=== PATIENT | female | born 1955 | race Caucasian/White ===

== ENCOUNTER → 2022-07-28 14:09 | Outpatient (CLI) | payer MEDICARE, MEDICAID, SELFPAY ==
[2022-07-28 15:16] LABS: Hematocrit 38.7 % (36-46); Hemoglobin 12.6 g/dL (12.0-16.0); Mean Corpuscular HGB Conc 32.6 % (30-36); Mean Corpuscular Hemoglobin 26.4 PG (26-34); Mean Corpuscular Volume 81.2 fL (80-100); Platelet Count 287 X10^3/uL (150-400); Red Blood Cell Count 4.77 X10^6/uL (4.0-5.2); Red Cell Distribution Width 14.5 % (11.6-14.8); White Blood Cell Count 5.9 X10^3/uL (4.5-11.0)
[2022-07-28 15:36] LABS: Alanine Aminotransferase 34 IU/L (<35); Albumin 4.4 g/dL (3.5-5.0); Albumin Globulin Ratio 1.2 (1.0-2.8); Alkaline Phosphatase 138 U/L (38-126); Aspartate Aminotransferase 92 IU/L (14-36); BUN Creatinine Ratio 26.4 (6-22); Bilirubin Total 0.6 mg/dL (0.2-1.3); Blood Urea Nitrogen 19 mg/dL (7-17); Calcium 9.8 mg/dL (8.4-10.2); Carbon Dioxide 25 mmol/L (22-32); Chloride 104 mmol/L (98-107); Cholesterol 177 mg/dL (140-199); Estimated Glomerular Filt Rate > 60 mL/min (>60); Globulin 3.8 g/dL (1.7-4.1); Glucose 109 mg/dL (80-110); HDL Cholesterol 45 mg/dL (40-60); HEMOLYSIS 29 (0-50); LDL Cholesterol Calculated 83 mg/dL (<100); Potassium 4.1 mmol/L (3.4-5.1); Sodium 139 mmol/L (137-145); Total Protein 8.2 g/dL (6.3-8.2); Triglycerides 246 mg/dL (35-150)
[2022-07-28 16:05] LABS: TSH w/ Reflex to FT4 1.87 uIU/mL (0.47-4.68)
== END ==
PROVIDERS: PCP Registered Nurse Diabetes Educator; Referring Provider Registered Nurse Diabetes Educator; Visit Provider Registered Nurse Diabetes Educator
DX: I25.10 Atherosclerotic heart disease of native coronary artery without angina pectoris (principal); R73.03 Prediabetes; I50.20 Unspecified systolic (congestive) heart failure
CPT/HCPCS: 36415; 80053; 80061; 83036; 84443; 85027

== ENCOUNTER → 2023-01-01 08:59 | Outpatient (CLI) | payer MEDICARE, MEDICAID, SELFPAY ==
[2023-01-01 10:48] LABS: Hemoglobin A1C% w Est Avg Glu 6.3 % (4.0-6.0)
[2023-01-01 10:57] LABS: Add Manual Diff / Slide Review NO; Basophils Absolute Auto 100 /uL (0-100); Basophils Percent Auto 1.2 % (0-2); Eosinophils Absolute Auto 300 /uL (0-450); Hemoglobin 12.3 g/dL (12.0-16.0); Lymphocytes Absolute Auto 2100 /uL (1100-4500); Lymphocytes Percent Auto 36.6 % (25-40); Mean Corpuscular HGB Conc 32.3 % (30-36); Mean Corpuscular Hemoglobin 25.1 PG (26-34); Mean Corpuscular Volume 77.8 fL (80-100); Monocytes Absolute Auto 400 /uL (0-900); Monocytes Percent Auto 6.3 % (3-14); Neutrophils Absolute Auto 2900 /uL (1500-7000); Neutrophils Percent Auto 49.9 % (50-75); Platelet Count 198 X10^3/uL (150-400); Red Blood Cell Count 4.88 X10^6/uL (4.0-5.2); White Blood Cell Count 5.8 X10^3/uL (4.5-11.0)
[2023-01-01 11:00] LABS: Alanine Aminotransferase 23 IU/L (<35); Albumin 4.1 g/dL (3.5-5.0); Albumin Globulin Ratio 1.2 (1.0-2.8); Alkaline Phosphatase 149 U/L (38-126); Aspartate Aminotransferase 39 IU/L (14-36); Bilirubin Total 0.4 mg/dL (0.2-1.3); Bilirubin Unconjugated 0.2 mg/dL (0.0-1.1); Globulin 3.5 g/dL (1.7-4.1); HEMOLYSIS < 15 (0-50); Total Protein 7.6 g/dL (6.3-8.2)
[2023-01-01 11:01] LABS: Alanine Aminotransferase 24 IU/L (<35); Albumin 4.1 g/dL (3.5-5.0); Albumin Globulin Ratio 1.2 (1.0-2.8); Alkaline Phosphatase 146 U/L (38-126); Aspartate Aminotransferase 38 IU/L (14-36); BUN Creatinine Ratio 18.7 (6-22); Bilirubin Total 0.4 mg/dL (0.2-1.3); Blood Urea Nitrogen 14 mg/dL (7-17); Calcium 8.8 mg/dL (8.4-10.2); Carbon Dioxide 28 mmol/L (22-32); Chloride 105 mmol/L (98-107); Estimated Glomerular Filt Rate > 60 mL/min (>60); Globulin 3.4 g/dL (1.7-4.1); Glucose 129 mg/dL (80-110); HEMOLYSIS < 15 (0-50); Potassium 3.8 mmol/L (3.4-5.1); Sodium 141 mmol/L (137-145); Total Protein 7.5 g/dL (6.3-8.2)
[2023-01-01 11:44] LABS: TSH w/ Reflex to FT4 3.65 uIU/mL (0.47-4.68)
== END ==
PROVIDERS: PCP Registered Nurse Diabetes Educator; Referring Provider Internal Medicine Cardiovascular Disease; Visit Provider Internal Medicine Cardiovascular Disease
DX: Z01.818 Encounter for other preprocedural examination (principal); R73.9 Hyperglycemia, unspecified; R74.01 Elevation of levels of liver transaminase levels; Z13.29 Encounter for screening for other suspected endocrine disorder
CPT/HCPCS: 36415; 80053; 80076; 83036; 84443; 85025

== ENCOUNTER → 2023-01-11 11:24 | Outpatient (CLI) | payer MEDICARE, MEDICAID, SELFPAY ==
--- NOTE | 2023-01-11 11:26 | DI.US.S_ITS ---
PROCEDURE: US ABDOMEN LIMITED INDICATIONS: elevated liver enzymes TECHNIQUE: Real-time focused scanning was performed of the abdomen, with image documentation. COMPARISON: None. FINDINGS: Liver measures 20 cm. Echogenicity is increased. Borderline gallbladder wall thickening at 3 mm. Negative sonographic Hoffman sign. No stones identified. CBD measures 5 mm. Pancreas appears echogenic. IMPRESSION: Echogenic appearance of the liver, with borderline hepatomegaly, most commonly seen with steatosis. Gallbladder wall thickening without sonographic Hoffman sign or stones, possibly reactive to liver disease. No pathologic biliary ductal dilation. Echogenic appearance of the pancreas could also be due to fatty infiltration, versus artifact, not well evaluated on ultrasound. Dictated by: Hong Forrest M.D. on 01/11/2023 at 11:59 Approved by: Hong Forrest M.D. on 01/11/2023 at 12:01
== END ==
PROVIDERS: PCP Registered Nurse Diabetes Educator; Referring Provider Registered Nurse Diabetes Educator; Visit Provider Registered Nurse Diabetes Educator
DX: R74.8 Abnormal levels of other serum enzymes (principal)
CPT/HCPCS: 76705

== ENCOUNTER → 2023-02-06 07:32 | Outpatient (CLI) | payer MEDICARE, MEDICAID, SELFPAY ==
[2023-02-06 08:40] LABS: Alanine Aminotransferase 31 IU/L (<35); Albumin 4.1 g/dL (3.5-5.0); Albumin Globulin Ratio 1.2 (1.0-2.8); Alkaline Phosphatase 183 U/L (38-126); Aspartate Aminotransferase 45 IU/L (14-36); Bilirubin Total 0.3 mg/dL (0.2-1.3); Bilirubin Unconjugated 0.1 mg/dL (0.0-1.1); Globulin 3.5 g/dL (1.7-4.1); HEMOLYSIS < 15 (0-50); Total Protein 7.6 g/dL (6.3-8.2)
[2023-02-06 08:52] LABS: HEMOLYSIS < 15 (0-50); Iron 52 ug/dL (37-170)
[2023-02-06 09:03] LABS: Percent Iron Saturation 17 % (15-50); Total Iron Binding Capacity 310 ug/dL (265-497); Transferrin 239 mg/dL (206-381)
[2023-02-06 09:16] LABS: Ferritin 48 ng/mL (11-264)
[2023-02-06 09:47] LABS: Hepatitis B Surface Antigen NEGATIVE s/c (NEGATIVE)
[2023-02-06 10:05] LABS: Hep C Virus Ab w/Reflex Quant NEGATIVE s/c (NEGATIVE)
== END ==
PROVIDERS: PCP Registered Nurse Diabetes Educator; Referring Provider Registered Nurse Diabetes Educator; Visit Provider Registered Nurse Diabetes Educator
DX: R74.8 Abnormal levels of other serum enzymes (principal)
CPT/HCPCS: 36415; 80076; 82728; 83540; 83550; 86803; 87340

== ENCOUNTER 2023-07-04 10:43 | Emergency (ER) | payer MEDICARE, MEDICAID, SELFPAY ==
[2023-07-04] VITALS (13 sets, daily range): BP systolic 132–198; BP diastolic 63–86; PULSE 44–73; RESP 17–24; TEMP 36.4; O2SAT 95–98
--- NOTE | 2023-07-04 10:51 | ED_ITS ---
HPI - Head Injury General Chief complaint: Syncope Stated complaint: Fell hurt head Time Seen by Provider: 07/04/23 10:50 Source: patient Mode of arrival: Ambulatory Limitations: no limitations History of Present Illness HPI Narrative: Patient presents with a headache and forehead injury. She was sitting on the ed ge of her bed this morning, she awoke on the floor, not understanding how she got there. She is assuming she passed out. She was seen at [facility] ER recently under similar circumstances. She is no visual changes, no bleeding from her ears, nose or mouth, no neck pain, no back pain. She denies chest pain or palpitations. She denies weakness or dizziness. She is no nausea. She is no confusion. She is no focal extremity weakness or numbness. She denies fever chills, no recent illness. She is a history of cardiac disease, she describes undergoing a thorough cardiac evaluation in 2019. None of those records are here. Related Data Home Medications Medication Instructions Recorded Confirmed latanoprost 0.005 % eye drops drp EYE-BOTH 07/10/22 02/07/23 diclofenac sodium 1 % topical gel g topical 01/01/23 02/07/23 Previous Rx's Medication Instructions Recorded torsemide 20 mg tablet 20 mg PO DAILY #90 tabs 08/06/22 atorvastatin 40 mg tablet 40 mg PO BEDTIME #90 tabs 10/12/22 metformin 500 mg tablet 500 mg PO BID #180 tabs 10/12/22 mirtazapine 45 mg tablet 45 mg PO BEDTIME #90 tabs 12/26/22 oxybutynin chloride 5 mg tablet 5 mg PO BID #180 tabs 12/26/22 fluoxetine 40 mg capsule 40 mg PO DAILY #90 caps 07/03/23 Allergies Allergy/AdvReac Type Severity Reaction Status Date / Time No Known Drug Allergies Allergy Verified 07/04/23 10:51 Review of Systems Constitutional Constitutional: Reports system reviewed and no additional complaints, except as documented Eyes Eyes: Denies blurry vision and Denies change in vision ENT Ears, Nose, Mouth, and Throat: Denies dysphagia, Denies vertigo, Denies dizziness, Denies sinus pain and Denies sore throat Cardiovascular Cardiovascular: Denies chest pain, Denies pedal edema, Denies irregular heart rhythm, Denies lightheadedness, Denies dyspnea on exertion and Denies slow heart rate Respiratory Respiratory: Denies chest congestion, Denies cough and Denies dyspnea on exertion Gastrointestinal Gastrointestinal: Denies abdominal pain, Denies constipation, Denies dysphagia and Denies nausea Genitourinary Genitourinary: Denies dysuria Musculoskeletal Musculoskeletal: Denies arthralgias, Denies back pain and Denies numbness Integumentary/Breasts Skin/Breast: Denies lesions and Denies rash Neurologic Neurologic: Denies behavioral changes, Denies confusion, Denies vertigo, Denies dizziness and Denies numbness Psychiatric Psychiatric: Denies anxiety, Denies behavioral changes and Denies confusion Hematologic/Lymphatic On Anticoagulants: No Allergic/Immunologic Allergic/Immunologic: Denies GI upset with certain foods and Denies urticaria Patient History Medical History Anxiety (~1999) Borderline glaucoma CAD (coronary artery disease) Carpal tunnel syndrome Cataracts, bilateral (~1999) Chronic left shoulder pain Depression (~1999) Fatty liver disease, nonalcoholic Osteoarthritis Prediabetes Skin tag (~1969) Systolic heart failure (~2019) Urinary incontinence, urge (~2011) Surgical History Anesthesia History of cataract removal with insertion of prosthetic lens (~2015) Family History Father Cancer Mother No problems noted. Brother Alcoholism Schizophrenia Mental health problem Family/Other Hypertension Paranoia Mental health problem Social History Smoking Status: Never smoker Smoking Status: Never smoker Exam Initial Vital Signs Initial Vital Signs: Vital Signs Temperature 97.5 F L 07/04/23 10:51 Pulse Rate 47 L 07/04/23 10:51 Respiratory Rate 17 07/04/23 10:51 Blood Pressure 188/83 H 07/04/23 10:51 Pulse Oximetry 98 07/04/23 10:51 Oxygen Delivery Method Room Air 07/04/23 10:51 Const General: cooperative, comfortable, well developed and well groomed HENMT Head: other (Forehead contusion. No palpable defects.) Ears: TM's normal bilaterally Face and sinus: normal facial exam Mouth: oral mucosae normal Throat: posterior oropharynx normal Eyes General: Yes appearance normal, both eyes and all related structures Conjunctivae: conjunctivae normal Sclera: sclerae normal Cornea: corneas normal Pupils: PERRL EOM: EOM intact bilaterally Neck Neck: normal visual inspection, full ROM, No tender and No JVD Thyroid: thyroid normal Chest Chest: No localized rib tenderness with anteroposterior compression Resp Effort & Inspection: normal respiratory effort Auscultation: clear to auscultation bilaterally Cardio Palpation: normal PMI Rate: regular rate Rhythm: regular rhythm Heart Sounds: S1 normal, S2 normal and murmur (2/6 mid systolic murmur.) Pulses: radial pulses present GI Inspection: no edema Palpation: No tender Percussion: normal to percussion Auscultation: normal bowel sounds Back/Spine/Pelvis Back: normal to inspection and No back tenderness Thoracic/Lumbar Spine: thoracic and lumbar spine normal to inspection Skin General: no rashes or lesions noted Neuro General: patient alert, patient awake, patient oriented x3 and no focal motor deficits Extrem General: normal to inspection, full ROM, no pedal edema and no calf tenderness Psych Appearance: grossly normal Course Course Course Narrative: Other than mild headache the patient has been asymptomatic since arrival. She is a normal sinus rhythm/sinus Jorge with normal blood pressures. Head CT, EKG and labs are benign. Murmur is noted on exam. I contacted her PCM, Thuy Gillis. She is scheduled to see SCHUYLER Rodriguez next week. We discussed initiating outpatient cardiac monitoring and/or echocardiogram. My impression that she had syncope leading to the fall, not concussion from a fall. The patient is discharged home on current medications and advised to return here if symptoms recur. Orders Ordered: ED Orders 07/04/23 10:59 CT head/brain wo con Stat 07/04/23 11:10 EKG-12 Lead Stat 07/04/23 11:12 Urine Culture Stat Urine Drug Screen, Rapid Stat Urine Microscopic Stat 07/04/23 11:18 CBC Auto Diff [Complete Blood Count AUTO DIFF] Stat CMP [Comprehensive Metabolic Panel] Stat ETOH [Ethanol (ETOH)] Stat Troponin & CK Cardiac Panel Stat Vital Signs Vital signs: Vital Signs - 8 hr 07/04/23 11:12 07/04/23 11:14 07/04/23 11:14 Pulse Rate 48 L 47 L Respiratory Rate 22 Blood Pressure 186/72 H Pulse Oximetry 96 96 07/04/23 11:21 07/04/23 11:21 07/04/23 11:30 Pulse Rate 46 L 44 L Respiratory Rate 20 19 Blood Pressure 175/79 H Pulse Oximetry 96 97 07/04/23 11:31 07/04/23 11:31 07/04/23 11:43 Pulse Rate 45 L 46 L Respiratory Rate 22 22 Blood Pressure 144/63 H Pulse Oximetry 97 95 07/04/23 11:43 07/04/23 12:00 07/04/23 12:01 Pulse Rate 71 73 Respiratory Rate 18 17 Blood Pressure 179/84 H Pulse Oximetry 96 96 07/04/23 12:01 07/04/23 12:30 07/04/23 12:31 Pulse Rate 68 66 Respiratory Rate 19 24 Blood Pressure 139/73 Pulse Oximetry 95 97 07/04/23 12:31 07/04/23 13:00 07/04/23 13:01 Pulse Rate 72 73 Respiratory Rate 19 20 Blood Pressure 132/75 Pulse Oximetry 97 96 07/04/23 13:01 Pulse Rate Respiratory Rate Blood Pressure 198/86 H Pulse Oximetry MDM - Head Injury Differential Diagnosis Differential diagnosis: Likely closed head injury, subdural hematoma, concussion with loss of consciousness and other (syncope) Medical Records Attestation: I reviewed the patient's medical records. Lab Data Attestation: I reviewed the patient's lab results. 07/04/23 11:18 07/04/23 11:18 Labs: Lab Results 07/04/23 07/04/23 07/04/23 Range/Units 11:12 11:12 11:18 WBC 7.5 (4.5-11.0) X10^3/uL RBC 4.92 (4.0-5.2) X10^6/uL Hgb 12.8 (12.0-16.0) g/dL Hct 39.6 (36-46) % MCV 80.5 (80-100) fL MCH 26.0 (26-34) PG MCHC 32.3 (30-36) % RDW 15.3 H (11.6-14.8) % Plt Count 232 (150-400) X10^3/uL Neut % (Auto) 56.5 (50-75) % Lymph % (Auto) 34.5 (25-40) % [place] % (Auto) 5.2 (3-14) % Eos % (Auto) 2.9 (2-4) % Baso % (Auto) 0.9 (0-2) % Neut # (Auto) 4300 (6887-5676) /uL Lymph # (Auto) 2600 (5374-3909) /uL [place] # (Auto) 400 (0-900) /uL Eos # (Auto) 200 (0-450) /uL Baso # (Auto) 100 (0-100) /uL Sodium (137-145) mmol/L Potassium (3.4-5.1) mmol/L Chloride (98-107) mmol/L Carbon Dioxide (22-32) mmol/L BUN (7-17) mg/dL Creatinine (0.52-1.04) mg/dL Estimated GFR (>60) mL/min BUN/Creatinine Ratio (6-22) Glucose (80-110) mg/dL Calcium (8.4-10.2) mg/dL Total Bilirubin (0.2-1.3) mg/dL AST (14-36) IU/L ALT (<35) IU/L Alkaline Phosphatase (38-126) U/L Total Creatine Kinase (30-135) U/L Troponin I (0.01-0.034) ng/mL Total Protein (6.3-8.2) g/dL Albumin (3.5-5.0) g/dL Globulin (1.7-4.1) g/dL Albumin/Globulin Ratio (1.0-2.8) Urine RBC 1-5/hpf (0-5/HPF) Urine WBC 1-5/hpf (0-5/HPF) Ur Squamous Epith Cells 0-1 /hpf (0-5/HPF) Urine Bacteria Few (2-10) H (None) Ur Culture Indicated? Specimen cultured U Opiates 300ng/mL cut Negative (Negative) Ur Oxycodone Screen Negative (Negative) Urine Methadone Screen Negative (Negative) Ur Barbiturates Screen Negative (Negative) U Tricyclic Antidepress Negative (Negative) Ur Phencyclidine Scrn Negative (Negative) Ur Amphetamines Screen Negative (Negative) U Methamphetamines Scrn Negative (Negative) Ur MDMA Scrn (Ecstasy) Negative (Negative) U Benzodiazepines Scrn Negative (Negative) Urine Cocaine Screen Negative (Negative) U Marijuana (THC) Screen Positive H (Negative) Ethyl Alcohol ( - 10) mg/dL 07/04/23 Range/Units 11:18 WBC (4.5-11.0) X10^3/uL RBC (4.0-5.2) X10^6/uL Hgb (12.0-16.0) g/dL Hct (36-46) % MCV (80-100) fL MCH (26-34) PG MCHC (30-36) % RDW (11.6-14.8) % Plt Count (150-400) X10^3/uL Neut % (Auto) (50-75) % Lymph % (Auto) (25-40) % [place] % (Auto) (3-14) % Eos % (Auto) (2-4) % Baso % (Auto) (0-2) % Neut # (Auto) (1695-1215) /uL Lymph # (Auto) (4937-2150) /uL [place] # (Auto) (0-900) /uL Eos # (Auto) (0-450) /uL Baso # (Auto) (0-100) /uL Sodium 140 (137-145) mmol/L Potassium 4.8 (3.4-5.1) mmol/L Chloride 109 H (98-107) mmol/L Carbon Dioxide 20 L (22-32) mmol/L BUN 15 (7-17) mg/dL Creatinine 0.78 (0.52-1.04) mg/dL Estimated GFR > 60 (>60) mL/min BUN/Creatinine Ratio 19.2 (6-22) Glucose 142 H (80-110) mg/dL Calcium 9.4 (8.4-10.2) mg/dL Total Bilirubin 0.4 (0.2-1.3) mg/dL AST 37 H (14-36) IU/L ALT 26 (<35) IU/L Alkaline Phosphatase 129 H (38-126) U/L Total Creatine Kinase 72 (30-135) U/L Troponin I < 0.012 (0.01-0.034) ng/mL Total Protein 7.6 (6.3-8.2) g/dL Albumin 4.3 (3.5-5.0) g/dL Globulin 3.3 (1.7-4.1) g/dL Albumin/Globulin Ratio 1.3 (1.0-2.8) Urine RBC (0-5/HPF) Urine WBC (0-5/HPF) Ur Squamous Epith Cells (0-5/HPF) Urine Bacteria (None) Ur Culture Indicated? U Opiates 300ng/mL cut (Negative) Ur Oxycodone Screen (Negative) Urine Methadone Screen (Negative) Ur Barbiturates Screen (Negative) U Tricyclic Antidepress (Negative) Ur Phencyclidine Scrn (Negative) Ur Amphetamines Screen (Negative) U Methamphetamines Scrn (Negative) Ur MDMA Scrn (Ecstasy) (Negative) U Benzodiazepines Scrn (Negative) Urine Cocaine Screen (Negative) U Marijuana (THC) Screen (Negative) Ethyl Alcohol < 10 ( - 10) mg/dL Urine Dip Bedside Urine Glucose Negative Bedside Urine Bilirubin - Negative Bedside Urine Ketone - Negative Urine Specific [place] 1.030 Bedside Urine Occult Blood - Negative Bedside Urine pH 9.0 Bedside Urine Protein +++ 300 Bedside Urine Urobilinogen 3+ 8mg Bedside Urine Nitrite - Negative Bedside Urine Leukocytes - Negative Esterase Imaging Data CT scan - head: Radiologist's Impression: No acute findings ECG Data Attestation: I personally reviewed and interpreted this ECG as follows: (Sinus bradycardia rate 49 beats per minute. RBBB. No ectopy. No acute ST T wave changes.) Discharge Plan Departure Patient Disposition: Home Clinical Impression: Cardiac murmur Syncope Qualifiers: Syncope type: unspecified Qualified Code(s): R55 - Syncope and collapse Instructions: DI for Syncope in Adults (Fainting) Activity Restrictions/Additional Instructions: I have contacted SCHUYLER Gillis. She is aware that you required ER care. We discussed possibly initial cardiac evaluation prior to your appointment with her next week. If symptoms recur you should return here immediately, including calling [phone] if necessary. Prescriptions: No Action atorvastatin 40 mg tablet 40 mg PO BEDTIME Qty: 90 3RF metformin 500 mg tablet 500 mg PO BID Qty: 180 3RF oxybutynin chloride 5 mg tablet 5 mg PO BID Qty: 180 1RF mirtazapine 45 mg tablet 45 mg PO BEDTIME Qty: 90 1RF fluoxetine 40 mg capsule 40 mg PO DAILY Qty: 90 1RF latanoprost 0.005 % drops EYE-BOTH torsemide 20 mg tablet 20 mg PO DAILY Qty: 90 3RF diclofenac sodium 1 % gel topical Referrals: Nicolás Gillis ARNP [Primary Care Provider] - Stand Alone Forms: Patient Portal/API
--- NOTE | 2023-07-04 10:59 | DI.CT.S_ITS ---
PROCEDURE: CT HEAD/BRAIN WO CON INDICATIONS: Fall with head injury TECHNIQUE: Noncontrast 4.5 mm thick angled axial sections acquired from the foramen magnum to the vertex, with coronal and sagittal reformats. For radiation dose reduction, the following was used: automated exposure control, adjustment of mA and/or kV according to patient size. COMPARISON: None. FINDINGS: Image quality: This examination is limited by involuntary motion artifact. Mild streak artifact can be seen through the skull base. CSF spaces: Basal cisterns are patent. No extra-axial fluid collections. The ventricles are symmetric in size and shape. Brain: No intracranial bleeds or masses. There is cerebral volume loss for age, with resultant ventricular and sulcal prominence. There are periventricular and deep white matter chronic small vessel ischemic changes. There is intracranial internal carotid artery atherosclerosis. Skull and face: Calvarium and visualized facial bones appear intact, without suspicious lesions. Incidental note is made of hyperostosis frontalis. This is not considered to be pathologic in a woman of this age. Sinuses: Visualized sinuses and mastoids are clear. IMPRESSION: No acute intracranial hemorrhage is seen. No acute intracranial process is seen. Dictated by: Kevin Lin M.D. on 07/04/2023 at 10:49 Approved by: Kevin Lin M.D. on 07/04/2023 at 10:50
[2023-07-04 11:24] LABS: UR Morphine/Opiate cutoff 300 Negative (Negative); Ur Creatinine Normal (Normal); Ur Specific Gravity Normal (Normal); Urine Amphetamines Negative (Negative); Urine Barbiturates Negative (Negative); Urine Benzodiazepines Negative (Negative); Urine Cocaine Negative (Negative); Urine MDMA Negative (Negative); Urine Methadone Negative (Negative); Urine Methamphetamines Negative (Negative); Urine Oxycodone Negative (Negative); Urine Phencyclidine Negative (Negative); Urine Tetrahydrocannabinol Positive (Negative); Urine Tricyclic Antidepressant Negative (Negative); Urine pH Normal (Normal)
[2023-07-04 11:26] LABS: Add Manual Diff / Slide Review NO; Basophils Absolute Auto 100 /uL (0-100); Basophils Percent Auto 0.9 % (0-2); Eosinophils Absolute Auto 200 /uL (0-450); Eosinophils Percent Auto 2.9 % (2-4); Hematocrit 39.6 % (36-46); Hemoglobin 12.8 g/dL (12.0-16.0); Lymphocytes Absolute Auto 2600 /uL (1100-4500); Lymphocytes Percent Auto 34.5 % (25-40); Mean Corpuscular HGB Conc 32.3 % (30-36); Mean Corpuscular Volume 80.5 fL (80-100); Monocytes Absolute Auto 400 /uL (0-900); Monocytes Percent Auto 5.2 % (3-14); Neutrophils Absolute Auto 4300 /uL (1500-7000); Neutrophils Percent Auto 56.5 % (50-75); Platelet Count 232 X10^3/uL (150-400); Red Blood Cell Count 4.92 X10^6/uL (4.0-5.2); Red Cell Distribution Width 15.3 % (11.6-14.8); White Blood Cell Count 7.5 X10^3/uL (4.5-11.0)
[2023-07-04 11:27] LABS: Bacteria Urine Few (2-10); Culture Indicated Urine Specimen Cultured; RBC Urine 1-5/HPF (0-5/HPF); Squamous Epithelial Cell Urine 0-1 /HPF (0-5/HPF); WBC Urine 1-5/HPF (0-5/HPF)
[2023-07-04 11:56] LABS: Alanine Aminotransferase 26 IU/L (<35); Albumin 4.3 g/dL (3.5-5.0); Albumin Globulin Ratio 1.3 (1.0-2.8); Alkaline Phosphatase 129 U/L (38-126); Aspartate Aminotransferase 37 IU/L (14-36); BUN Creatinine Ratio 19.2 (6-22); Bilirubin Total 0.4 mg/dL (0.2-1.3); Blood Urea Nitrogen 15 mg/dL (7-17); Calcium 9.4 mg/dL (8.4-10.2); Carbon Dioxide 20 mmol/L (22-32); Chloride 109 mmol/L (98-107); Creatine Kinase 72 U/L (30-135); Estimated Glomerular Filt Rate > 60 mL/min (>60); Ethanol (ETOH) < 10 mg/dL; Globulin 3.3 g/dL (1.7-4.1); Glucose 142 mg/dL (80-110); HEMOLYSIS < 15 (0-50); Potassium 4.8 mmol/L (3.4-5.1); Sodium 140 mmol/L (137-145); Total Protein 7.6 g/dL (6.3-8.2)
[2023-07-04 12:06] LABS: Troponin I < 0.012 ng/mL (0.01-0.034)
--- NOTE | 2023-07-04 12:28 | PC.NURSE ---
Purewick placed to help with patient ability to urinate safely due to recent syncope.
== END 2023-07-04 13:30 | disposition home or self-care (01) ==
PROVIDERS: Emergency Provider Emergency Medicine; PCP Registered Nurse Diabetes Educator; Referring Provider Emergency Medicine
DX: R55 Syncope and collapse (principal); R01.1 Cardiac murmur, unspecified; S09.90XA Unspecified injury of head, initial encounter; R07.9 Chest pain, unspecified
CPT/HCPCS: 36415; 70450; 80053; 80305; 80320; 81003; 81015; 82550; 84484; 85025; 87086; 93005; 93010; 99284

== ENCOUNTER → 2023-07-12 13:43 | Outpatient (CLI) | payer MEDICARE, MEDICAID, SELFPAY ==
--- NOTE | 2023-08-07 13:41 | PC.NURSE ---
Yolette called today notifying of critical result. Dr. Howard out today, so I printed the report and delivered it to pt's PCP Nicolás Gillis directly, advising that it is not the final interpretation. Also faxing it to pt's electrician [employer] ([employer]i). Advised both providers that our office will not be contacting the patient and that they will need to do so.
== END ==
PROVIDERS: PCP Registered Nurse Diabetes Educator; Referring Provider Registered Nurse Diabetes Educator; Visit Provider Registered Nurse Diabetes Educator
DX: R55 Syncope and collapse (principal); I50.22 Chronic systolic (congestive) heart failure
CPT/HCPCS: 93246

== ENCOUNTER → 2023-07-27 15:14 | Outpatient (CLI) | payer MEDICARE, MEDICAID, SELFPAY ==
--- NOTE | 2023-07-27 15:14 | DI.ECHO.S_ITS ---
[facility]---------+ [facility] +---------+ : : [address] : : : : [id number] : : : : Phone: [phone] Echocardiogram Report + + :Name: SARAH BRANHAM Study Date: 07/27/2023 Height: 67 in : :[facility] ReadingLocation: Weight: 290 lb : : Gender: Female BSA: 2.4 m2 : :: 1955 Age: 68 yrs BP: 197/91 mmHg: :Reason For Study: Chronic Systolic Heart Failure : :Ordering Physician: JANELLE, : :MASHA Performed By: Jenna Emerson : :Referring: MASHA LUIS : + + Interpretation Summary This is a technically difficult study enhanced with Definity echocontrast. Normal LV size and wall thickness; normal wall motion and LV systolic function. EF is 60-65%. Normal chamber sizes. Aortic valve leaflets are mildly calcified with mild associated aortic stenosis. Otherwise no significant valvular abnormalities. Mildly dilated ascending aorta. No prior study available for comparison. Procedure: A two-dimensional transthoracic echocardiogram with color flow and Doppler was performed. The study quality was technically difficult. The patient had an echocardiogram, but there is no comparison study available. Left Ventricle: The left ventricle is normal in size. The ejection fraction is estimated to be 65-70%. Diastolic parameters suggest a relaxation abnormality of the left ventricle, consistent with probable normal filling pressures. Right Ventricle: The right ventricle is normal in size and function. Atria: The left atrial size is normal. The right atrium is normal in size. There is no Doppler evidence for an interatrial shunt. Mitral Valve: The mitral valve is normal. There is mild mitral annular calcification. There is no mitral valve stenosis. There is trace mitral regurgitation. Aortic Valve: The aortic valve is not well visualized. There is mild aortic stenosis. The peak aortic velocity is 2.36 m/sec. The aortic valve mean gradient is 12 mmHg. There is trace aortic regurgitation. Tricuspid Valve: The tricuspid valve is normal. There is no tricuspid stenosis. No tricuspid regurgitation. Pulmonic Valve: The pulmonic valve is not well visualized. There is no pulmonic valvular stenosis. There is no pulmonic valvular regurgitation. Great Vessels: The aortic root is normal size. The ascending aorta is mildly enlarged. The pulmonary artery is normal size. The IVC is of normal diameter and collapses greater than 50% with a sniff. This suggests a low right atrial pressure of 3 mm Hg. Pericardium/ Pleura There is no pericardial effusion. There is no pleural effusion. MMode/2D Measurements & Calculations LVOT diam: 2.0 cm LA A2 area: 21.2 cm2 Ao root diam: 2.9 cm LA A4 area: 21.1 cm2 asc Aorta Diam: 4.0 cm LA length (vol): 6.7 cm LA vol: 56.7 ml LA vol index: 23.9 ml/m2 RA long axis: 4.5 cm RVD1 (basal): 3.8 cm RA area: 12.4 cm2 RA vol: 29.2 ml RA : 12.3 ml/m2 LVLs ap4: 6.6 cm LVLd ap2: 7.9 cm LVLs ap2: 5.6 cm TAPSE_phl: 2.6 cm Doppler Measurements & Calculations Ao V2 max: 233.7 cm/sec LVOT Max Mickey: 142.0 cm/sec Ao V2 mean: 162.7 cm/sec LV V1 max P.1 mmHg Ao max P.0 mmHg LV V1 VTI: 28.4 cm Ao mean P.0 mmHg ADDY(I,D): 2.2 cm2 Ao V2 VTI: 40.8 cm ADDY(V,D): 1.9 cm2 sev ratio: 0.70 ADDY indexed to BSA (cm^2/m^2): 0.92 MV E max mickey: 76.1 cm/sec PA V2 max: 123.0 cm/sec MV A max mickey: 63.8 cm/sec PA V2 mean: 79.4 cm/sec MV E/A: 1.2 PA mean P.0 mmHg Med Peak E' Mickey: 7.3 cm/sec E/E' med: 10.5 Lat Peak E' Mickey: 10.7 cm/sec E/E' lat: 7.1 E/e' average: 8.8 MV dec time: 0.24 sec SV(LVOT): 89.1 ml AV VR_phl: 0.61 ADDY(VTI)/BSA_phl: 0.92 Electronically signed by: Summer Marcelino M.D. on Reading Physician:07/28/2023 05:53 AM
== END ==
PROVIDERS: PCP Registered Nurse Diabetes Educator; Referring Provider Registered Nurse Diabetes Educator; Visit Provider Registered Nurse Diabetes Educator
DX: I34.81 Nonrheumatic mitral (valve) annulus calcification (principal); I35.0 Nonrheumatic aortic (valve) stenosis; I77.89 Other specified disorders of arteries and arterioles; I50.22 Chronic systolic (congestive) heart failure; R55 Syncope and collapse
CPT/HCPCS: 93306; Q9957

== ENCOUNTER → 2023-11-13 08:45 | Outpatient (CLI) | payer MEDICARE, MEDICAID, SELFPAY ==
[2023-11-13 10:06] LABS: Hemoglobin A1C% w Est Avg Glu 6.3 % (4.0-6.0)
[2023-11-13 10:16] LABS: Hematocrit 41.9 % (36-46); Hemoglobin 13.3 g/dL (12.0-16.0); Mean Corpuscular HGB Conc 31.6 % (30-36); Mean Corpuscular Hemoglobin 25.6 PG (26-34); Mean Corpuscular Volume 80.8 fL (80-100); Platelet Count 276 X10^3/uL (150-400); Red Blood Cell Count 5.18 X10^6/uL (4.0-5.2); Red Cell Distribution Width 14.8 % (11.6-14.8); White Blood Cell Count 8.2 X10^3/uL (4.5-11.0)
[2023-11-13 10:18] LABS: Alanine Aminotransferase 16 IU/L (<35); Albumin 4.4 g/dL (3.5-5.0); Albumin Globulin Ratio 1.3 (1.0-2.8); Alkaline Phosphatase 91 U/L (38-126); Aspartate Aminotransferase 27 IU/L (14-36); BUN Creatinine Ratio 22.2 (6-22); Bilirubin Total 0.6 mg/dL (0.2-1.3); Blood Urea Nitrogen 18 mg/dL (7-17); Calcium 9.7 mg/dL (8.4-10.2); Carbon Dioxide 22 mmol/L (22-32); Chloride 104 mmol/L (98-107); Cholesterol 122 mg/dL (140-199); Estimated Glomerular Filt Rate > 60 mL/min (>60); Globulin 3.3 g/dL (1.7-4.1); Glucose 150 mg/dL (80-110); HDL Cholesterol 42 mg/dL (40-60); HEMOLYSIS < 15 (0-50); LDL Cholesterol Calculated 46 mg/dL (<100); Potassium 4.1 mmol/L (3.4-5.1); Sodium 140 mmol/L (137-145); Total Protein 7.7 g/dL (6.3-8.2); Triglycerides 172 mg/dL (35-150)
[2023-11-13 10:49] LABS: TSH w/ Reflex to FT4 2.87 uIU/mL (0.47-4.68)
== END ==
PROVIDERS: PCP Registered Nurse Diabetes Educator; Referring Provider Registered Nurse Diabetes Educator; Visit Provider Registered Nurse Diabetes Educator
DX: K76.0 Fatty (change of) liver, not elsewhere classified (principal); R73.03 Prediabetes; E78.5 Hyperlipidemia, unspecified; I25.10 Atherosclerotic heart disease of native coronary artery without angina pectoris
CPT/HCPCS: 36415; 80053; 80061; 83036; 84443; 85027

== ENCOUNTER → 2023-12-24 09:58 | Outpatient (CLI) | payer MEDICARE, MEDICAID, SELFPAY ==
[2023-12-24 11:11] LABS: Add Manual Diff / Slide Review NO; Basophils Absolute Auto 100 /uL (0-100); Basophils Percent Auto 1.2 % (0-2); Eosinophils Absolute Auto 300 /uL (0-450); Eosinophils Percent Auto 4.1 % (2-4); Hemoglobin 13.2 g/dL (12.0-16.0); Lymphocytes Absolute Auto 3200 /uL (1100-4500); Lymphocytes Percent Auto 43.4 % (25-40); Mean Corpuscular HGB Conc 32.3 % (30-36); Mean Corpuscular Hemoglobin 25.8 PG (26-34); Monocytes Absolute Auto 400 /uL (0-900); Monocytes Percent Auto 5.9 % (3-14); Neutrophils Absolute Auto 3300 /uL (1500-7000); Neutrophils Percent Auto 45.4 % (50-75); Platelet Count 241 X10^3/uL (150-400); Red Blood Cell Count 5.13 X10^6/uL (4.0-5.2); Red Cell Distribution Width 14.8 % (11.6-14.8); White Blood Cell Count 7.3 X10^3/uL (4.5-11.0)
[2023-12-24 11:35] LABS: BUN Creatinine Ratio 23.6 (6-22); Blood Urea Nitrogen 21 mg/dL (7-17); Calcium 9.3 mg/dL (8.4-10.2); Carbon Dioxide 24 mmol/L (22-32); Chloride 102 mmol/L (98-107); Estimated Glomerular Filt Rate > 60 mL/min (>60); Glucose 142 mg/dL (80-110); HEMOLYSIS < 15 (0-50); Potassium 4.7 mmol/L (3.4-5.1); Sodium 139 mmol/L (137-145)
== END ==
LOC: LAB 10:00
PROVIDERS: PCP Registered Nurse Diabetes Educator; Referring Provider Internal Medicine Cardiovascular Disease; Visit Provider Internal Medicine Cardiovascular Disease
DX: I48.0 Paroxysmal atrial fibrillation (principal)
CPT/HCPCS: 36415; 80048; 85025

== ENCOUNTER → 2023-12-26 10:50 | Outpatient (CLI) | payer MEDICARE, MEDICAID, SELFPAY ==
--- NOTE | 2023-12-28 14:20 | DIAB.MNT ---
Initial Diabetes Medical Nutrition Therapy Assessment Name: Belen Hays Date: 12/26/23 Time: 11-12 Dx: Type II Diabetes Tayler presents today with daughter, Greta, for initial visit. Reports this is a new dx of Dm with consecutive elevated FBG of 142, 150, 142 mg/dl (HgA1c of 6.3% last two labs). Taking Metformin 500mg BID. Reports she really likes fruit. Has cut back on eating out. Lives with daughter and daughter's , who cook and she eats with them. Greta has made significant nutrition changes in the house, ie homemade seasonings without salt, switching to lean meats, reduced added sugar access. Tayler has poor dentition and is waiting on dentures with appt on 02/03 with dentist. Interested in healthy smoothie ideas. Interested in DM classes Diet recall: 1030a: low sugar oatmeal pkt with banana and orange or grapes 2p: 2-3 pieces of fruit OR low salt chips x 2c OR small bag popcorn or a mix of these snacks 6-7p: burger with bun, 1c fries and one fruit OR 2 flour tacos with meat and veggies OR can soup with crackers OR crunch wrap x 2 with tostada and tortilla meat and veg 9p: sf popscicle OR fruit OR candy Carlyn: water 16-32oz, sf soda, sf juice, sf sweet tea Anthropometrics: Ht: 5'5 Wt: 304.7# 10/2023 Physical Activity: plans to start swim aerobics 2 d/wk. Self-Monitoring Blood Glucose: No log book today. Reports FBG 110-120mg/dl and pre dinner 130-160, highest reading 211mg/dl. Diabetes Medications: Metformin 500mg BID Pertinent Labs: Fasting: mg/dl 142 06/2023 150 10/2023 142 11/2023 HgA1c: 6.3% 10/2023 6.3% 12/2022 Past Medical History: (Last Updated 11/15/23 @ 11:09 by SCHUYLER Bell) Anxiety (~1999) Borderline glaucoma CAD (coronary artery disease) Carpal tunnel syndrome Cataracts, bilateral (~1999) Chronic left shoulder pain Depression (~1999) Diabetes mellitus type 2, controlled, without complications Dyslipidemia Fatty liver disease, nonalcoholic Normally functioning cardiac pacemaker present Osteoarthritis Paroxysmal A-fib Prediabetes Skin tag (~1969) Systolic heart failure (~2019) Urinary incontinence, urge (~2011) Nutrition Rx: Carbohydrates: Meal:30-45g Snack:15-30g Nutrition Diagnosis: - Excessive CHO intake r/t nutrition knowledge deficit and new dx aeb FBG >126mg/dl x2, diet recall, and pt report - Physical inactivity r/t stage of change preparation aeb pt report Intervention: This participant was very receptive. Provided appropriate educational handouts. Discussed the following topics: Completed intake assessment. Discussed barriers to care. Pathophysiology of T2DM HgA1c, its correlation to blood glucose numbers, and rationale for goal Importance of self-monitoring, how often, and when to check. Suggested checking at different times to evaluate meals Plate Method, impact of macronutrients on blood sugar, meal timing, carbohydrate counting, pairing macronutrients and spreading out carbohydrates for better blood glucose management Recommended servings for carbohydrates at meals and snacks Smoothie ideas with pro and CHo Heart health nutrition Brainstormed appropriate meal/snack ideas based on food preferences Role of physical activity and following provider guidelines for safety Created SMART goals for patient self-care and success. Goals: Keep breakfast to one fruit with oats Add PB to banana for additional protein Add string cheese to afternoon snack Add veggies to dinner Try a salad with homemade dressing Try a smoothie with protein added Bring BG log next visit Follow-up: BRANDI LIRIANO follow-up in 2-3 weeks Naima Tran RDN, HERI Certified Diabetes Care and [employer] P: [phone] Thank you for this referral
== END ==
LOC: DIET 10:50
PROVIDERS: PCP Registered Nurse Diabetes Educator; Referring Provider Registered Nurse Diabetes Educator; Visit Provider Registered Nurse Diabetes Educator
DX: E11.9 Type 2 diabetes mellitus without complications (principal); Z79.84 Long term (current) use of oral hypoglycemic drugs; Z71.3 Dietary counseling and surveillance
CPT/HCPCS: 97802

== ENCOUNTER → 2024-01-08 09:21 | Outpatient (CLI) | payer MEDICARE, MEDICAID, SELFPAY ==
--- NOTE | 2024-01-08 10:27 | DIAB.MNTFU ---
Follow-up Diabetes Medical Nutrition Therapy Assessment Name: Belen Hays Date: 01/08/24 Time: 930-1020a Dx: Type II Diabetes Tayler presents for f/u with daughter, Greta. Reports adding protein to most meals/snacks. Breakfast still low in protein but also lower in carb. Reduced fruit potions. Confirms sf juice is zero sugar, though has not been drinking lately. Has not tried smoothies yet. Has not tried string cheese for fear of choking. Open to other cheeses. Has not tried [place] yogurt,not sure she likes it yet. Up to date on eye appt. Dental next month for dentures. Checks feet daily. Plans to be more active. Main barrier is pain. Plans to see Akosua Wolf tomorrow for pain management. Main concern from labs was FBG, which all FBG reported under 130mg/dl. Main concern for BG last visit was pre dinner elevations. Asked for pc readings, all <180mg/dl per report. New labs due in March/April. Diet Recall: 1030a: low sugar oatmeal, one fruit 2p: 2 ww toast with pb OR sandwich 6-7p: chicken <1c potatoes, one fruit, salad 9p: 2 sf cookies Carlyn: 48-64oz water, 1 zero sugar soda Anthropometrics: Ht: 5'5 Wt: 304.7# 10/2023 Physical Activity: plans to start swim aerobics 2 d/wk. Has home equipment, ie weights, seated elliptical. Pain is main barrier. Self-Monitoring Blood Glucose: No log book today. Reports FBG 110-120mg/dl, pc lunch 130-150mg/dl, and pc dinner 150-180mg/dl Diabetes Medications: Metformin 500mg BID Pertinent Labs: Fasting: mg/dl 142 06/2023 150 10/2023 142 11/2023 HgA1c: 6.3% 10/2023 6.3% 12/2022 Past Medical History: (Last Updated 11/15/23 @ 11:09 by SCHUYLER Bell) Anxiety (~1999) Borderline glaucoma CAD (coronary artery disease) Carpal tunnel syndrome Cataracts, bilateral (~1999) Chronic left shoulder pain Depression (~1999) Diabetes mellitus type 2, controlled, without complications Dyslipidemia Fatty liver disease, nonalcoholic Normally functioning cardiac pacemaker present Osteoarthritis Paroxysmal A-fib Prediabetes Skin tag (~1970) Systolic heart failure (~2019) Urinary incontinence, urge (~2011) Nutrition Rx: Carbohydrates: Meal:30-45g Snack:15-30g Nutrition Diagnosis: - Excessive CHO intake r/t nutrition knowledge deficit and new dx aeb FBG >126mg/dl x2, diet recall, and pt report- improved - Physical inactivity r/t stage of change preparation and pain as a barrier aeb pt report - Nutrition and food related knowledge deficit r/t needing more info on sugar subs aeb pt report- new Intervention: This participant was very receptive. Provided appropriate educational handouts. Discussed the following topics: Blood sugar trends and goals. Meal planning and carb counting review Label reading review, including reading for sugar alcohols Sugar substitutes Foot health for Dm Importance of eye and dental with Dm dx Physical activity plan and barriers Proteins she enjoys Created SMART goals for patient self-care and success. Goals: Keep breakfast to one fruit with oats- met Add PB to banana for additional protein- continue Add string cheese to afternoon snack- d/c Add veggies to dinner- met Try a salad with homemade dressing- in progress Try a smoothie with protein added- in progress Bring BG log next visit - not met Start phys activity program safely once pain is managed better- new Add protein to breakfast- new Try a cheese with snack- new Follow-up: BRANDI LIRIANO follow-up in March or sooner prn. Naima Tran RDN, HERI Certified Diabetes Care and Plate Glass Installer Helper P: [phone] Thank you for this referral
== END ==
PROVIDERS: PCP Registered Nurse Diabetes Educator; Referring Provider Registered Nurse Diabetes Educator; Visit Provider Registered Nurse Diabetes Educator
DX: E11.9 Type 2 diabetes mellitus without complications (principal); Z79.84 Long term (current) use of oral hypoglycemic drugs; Z71.3 Dietary counseling and surveillance
CPT/HCPCS: 97803

== ENCOUNTER → 2024-01-09 14:25 | Outpatient (CLI) | payer MEDICARE, MEDICAID, SELFPAY ==
--- NOTE | 2024-01-09 14:28 | DI.RAD.S_ITS ---
PROCEDURE: XR SHOULDER RT MIN 2V INDICATIONS: R shoulder pain; hx of remote fall; suspect rotator cuff TECHNIQUE: 3 views of the shoulder were acquired. COMPARISON: None. FINDINGS: Bones: No fractures or dislocations. No suspicious bony lesions. Visualized ribs appear intact. Glenohumeral joint space narrowing with osteophytosis. Soft tissues: No suspicious soft tissue calcifications. IMPRESSION: No acute bony abnormality. Moderate glenohumeral osteoarthritis. Dictated by: Randolph Steele M.D. on 01/09/2024 at 15:53 Approved by: Randolph Steele M.D. on 01/09/2024 at 15:53
== END ==
LOC: RAD 14:27
PROVIDERS: PCP Registered Nurse Diabetes Educator; Referring Provider Physician Assistant; Visit Provider Physician Assistant
DX: M19.011 Primary osteoarthritis, right shoulder (principal); M25.511 Pain in right shoulder
CPT/HCPCS: 73030

== ENCOUNTER → 2024-05-07 13:34 | Outpatient (CLI) | payer MEDICARE, MEDICAID, SELFPAY ==
[2024-05-07 16:48] LABS: Creatinine Urine Random 38.74 mg/dL
[2024-05-07 16:52] LABS: Microalbumin Urine Random 0.9 mg/dL (0-1.6)
[2024-05-08 18:53] LABS: Hemoglobin A1C% w Est Avg Glu 6.1 % (4.0-6.0)
== END ==
PROVIDERS: PCP Registered Nurse Diabetes Educator; Referring Provider Registered Nurse Diabetes Educator; Visit Provider Registered Nurse Diabetes Educator
DX: E11.9 Type 2 diabetes mellitus without complications (principal)
CPT/HCPCS: 36415; 82043; 82570; 83036

== ENCOUNTER 2024-08-10 11:30 | Emergency (ER) | payer MEDICARE, MEDICAID, SELFPAY ==
[2024-08-10 11:37] VITALS: BP 127/86; PULSE 64; RESP 18; TEMP 36.9; O2SAT 96; BMI 48.5
--- NOTE | 2024-08-10 11:45 | ED_ITS ---
<Statement entered by Forrest Elliott DO - 08/10/24 12:19> Dr. Elliott: I was immediately available in the department for consultation. Documentation has been reviewed. I agree with assessment and plan. HPI - Skin/Abscess/Foreign Bdy General Chief complaint: Skin/Abscess/Foreign Body Stated complaint: left leg swelling, red blisters? pain Time Seen by Provider: 08/10/24 11:45 Source: patient Mode of arrival: Ambulatory Limitations: no limitations History of Present Illness HPI narrative: Patient is a very pleasant 69-year-old female that presents to the emergency room department today with complaints and concerns of a large red, tender area to the back of her left calf. Started yesterday worsening today. Review of the patient's chart shows that she has a complex medical history. Patient denies recent injury, trauma or fall she does not know how she sustained an injury she does not know if she scratched the back of her leg, hit the back of her leg, or how the redness started. She knows she has some minor discomfort and pain. She noticed the redness in the redness has increased over the last day or so. The patient does have an appointment tomorrow with her primary care doctor. She has no other physical complaints currently at this time. She does ambulate with a walker due to elevated BMI. Related Data Home Medications Medication Instructions Recorded Confirmed latanoprost 0.005 % eye drops drp EYE-BOTH 07/10/22 05/12/24 rivaroxaban 20 mg tablet (Xarelto) 20 mg PO DAILY 11/13/23 05/12/24 flecainide 50 mg tablet 50 mg PO DAILY 01/09/24 05/12/24 metoprolol succinate 25 mg 25 mg PO BID 01/09/24 05/12/24 tablet,extended release 24 hr Previous Rx's Medication Instructions Recorded Disabled Parking Permit #1 ea 07/11/23 BD Purewick Female External #1 ea 08/20/23 Catheter System fluoxetine 40 mg capsule 40 mg PO DAILY #90 caps 11/13/23 metformin 500 mg tablet 500 mg PO BID #180 tabs 11/13/23 mirtazapine 45 mg tablet 45 mg PO BEDTIME #90 tabs 11/13/23 atorvastatin 40 mg tablet 40 mg PO BEDTIME #90 tabs 11/15/23 torsemide 20 mg tablet 20 mg PO DAILY #90 tabs 11/15/23 blood sugar diagnostic (Blood #100 ea 11/21/23 Glucose Test strips) blood-glucose meter #1 ea 11/21/23 lancets (Fingerstix Lancets) #100 ea 11/21/23 gabapentin 300 mg capsule 300 mg PO .COMPLEX #270 caps 05/12/24 oxybutynin chloride 15 mg 15 mg PO DAILY #90 tabs 05/12/24 tablet,extended release 24 hr semaglutide 0.25 mg or 0.5 mg (2 0.25 mg (0.368 mL) SUBCUT QWEEK #3 05/12/24 mg/3 mL) subcutaneous pen injector mL cephalexin 500 mg capsule 500 mg PO QID 10 days #40 caps 08/10/24 Allergies Allergy/AdvReac Type Severity Reaction Status Date / Time No Known Drug Allergies Allergy Verified 05/12/24 09:44 Review of Systems Review of Systems Narrative: Negative except as above Musculoskeletal Comments: Large area of soft tissue swelling, redness, signs and symptoms of staph infection/cellulitis to the back of the left calf area. Patient History Medical History Essential hypertension Paroxysmal A-fib Dyslipidemia Diabetes mellitus type 2, controlled, without complications Normally functioning cardiac pacemaker present Fatty liver disease, nonalcoholic Skin tag (~1969) Osteoarthritis Depression (~1999) Anxiety (~1999) Carpal tunnel syndrome Cataracts, bilateral (~1999) Urinary incontinence, urge (~2011) Borderline glaucoma Chronic left shoulder pain Prediabetes CAD (coronary artery disease) Systolic heart failure (~2019) Surgical History Anesthesia History of cataract removal with insertion of prosthetic lens (~2015) Family History Father Cancer Mother No problems noted. Brother Alcoholism Schizophrenia Mental health problem Family/Other Hypertension Paranoia Mental health problem Social History Smoking Status: Never smoker Smoking Status: Never smoker alcohol intake frequency: holidays/special occasions only Substance Use Type: marijuana Exam Initial Vital Signs Initial Vital Signs: Vital Signs Temperature 98.4 F 08/10/24 11:37 Pulse Rate 64 08/10/24 11:37 Respiratory Rate 18 08/10/24 11:37 Blood Pressure 127/86 08/10/24 11:37 Pulse Oximetry 96 08/10/24 11:37 Oxygen Delivery Method Room Air 08/10/24 11:37 Reviewed Const General: cooperative, No acute distress and No in distress Nutritional Appearance: obese (Morbidly) morbidly obese Eyes General: Yes appearance normal, both eyes and all related structures Pupils: PERRL EOM: EOM intact bilaterally Skin Other: Patient has an area on the posterior aspect of her left calf, 9 cm in length, 7 m in diameter, red, hot, tender area. Indurated. No signs of fluctuance. No streaking. Signs and symptoms of staph infection, cellulitis, no area to culture. Neuro Other: Cranial nerves are grossly intact Extrem Other: Patient is morbidly obese, lower extremities are morbidly obese, she walks slowly with a walker. She has 2 areas on the posterior aspect of the left calf that look like small areas that could be starting a blisters. It appears as if she has had areas on the lower extremities that have blistered up and then healed. Signs of peripheral artery disease. Psych Other: Patient is polite, she is oriented, speech is normal, movement is impaired due to body habitus, her mood, affect, attitude, thought process, thought content and judgment is appropriate. Scores GCS Citation: 15 Course Orders Ordered: Discontinued Medications Ceftriaxone Sodium (Ceftriaxone 2,000 Mg Vial) 1,000 mg IM NOW ONE Stop: 08/10/24 11:54 Vital Signs Vital signs: Vital Signs - 8 hr 08/10/24 11:37 Temperature 98.4 F Pulse Rate 64 Respiratory Rate 18 Blood Pressure 127/86 Pulse Oximetry 96 Oxygen Delivery Method Room Air MDM - Skin/Abscess/Foreign Bdy MDM Narrative Medical decision making narrative: Pleasant 69-year-old female complex medical history, morbidly obese, evaluation shows signs and symptoms of staph infection, starting of a cellulitis to the posterior aspect of the left calf. 9 cm in length, 7 cm in diameter. No streaking up the back of the left leg. Signs symptoms of mild induration, nothing to culture, no signs of abscess. 1 g of IM Rocephin Prescriptions were sent to her pharmacy Supportive therapy education, ED precautions Patient has a follow up appointment at 9:30 a.m. in the morning with her primary care doctor tomorrow Differential diagnosis; staph infection, possible MRSA, Discharge Plan Departure Patient Disposition: Home Clinical Impression: Cellulitis Qualifiers: Site of cellulitis: extremity Site of cellulitis of extremity: lower extremity Laterality: left Qualified Code(s): L03.116 - Cellulitis of left lower limb Activity Restrictions/Additional Instructions: Elevate leg Warm salt water compresses Take the medications as prescribed Qplx-ief-lzseiby Tylenol for discomfort Follow up with her primary care doctor tomorrow Prescriptions: New cephalexin 500 mg capsule 500 mg PO QID 10 Days Qty: 40 0RF No Action (DME) lancets [Fingerstix Lancets] Misc See Rx Instructions .Route Qty: 100 3RF Rx Instructions: As directed (DME) blood-glucose meter Misc See Rx Instructions .Route Qty: 1 0RF Rx Instructions: As directed (DME) Blood Glucose Test Strip See Rx Instructions .Route Qty: 100 3RF Rx Instructions: As directed latanoprost 0.005 % drops EYE-BOTH (DME) BD Purewick Female External Catheter System See Rx Instructions .Route .MEDSUPPLY Qty: 1 0RF Rx Instructions: For at post op use Xarelto 20 mg tablet 20 mg PO DAILY mirtazapine 45 mg tablet 45 mg PO BEDTIME Qty: 90 3RF fluoxetine 40 mg capsule 40 mg PO DAILY Qty: 90 3RF metformin 500 mg tablet 500 mg PO BID Qty: 180 3RF torsemide 20 mg tablet 20 mg PO DAILY Qty: 90 3RF atorvastatin 40 mg tablet 40 mg PO BEDTIME Qty: 90 3RF (DME) Disabled Parking Permit See Rx Instructions .Route .MEDSUPPLY Qty: 1 0RF Rx Instructions: Valid for 5 years gabapentin 300 mg capsule 300 mg PO .COMPLEX Qty: 270 1RF Rx Instructions: Take 1 cap by mouth every morning and 2 caps at bedtime oxybutynin chloride 15 mg tablet extended release 24hr 15 mg PO DAILY Qty: 90 1RF semaglutide 0.25 mg or 0.5 mg (2 mg/3 mL) pen injector 0.25 mg SUBCUT QWEEK Qty: 3 3RF Rx Instructions: for 4 weeks; then increase to 0.5 mg every week flecainide 50 mg tablet 50 mg PO DAILY metoprolol succinate 25 mg tablet extended release 24 hr 25 mg PO BID Referrals: Nicolás Gillis ARNP [Primary Care Provider] - Stand Alone Forms: Patient Portal/API
[2024-08-10] MEDS: cefTRIAXone 2,000 MG VIAL 1000 MG IM (12:04)
== END 2024-08-10 12:30 | disposition home or self-care (01) ==
PROVIDERS: Emergency Provider Physician Assistant; PCP Registered Nurse Diabetes Educator
DX: L03.116 Cellulitis of left lower limb (principal); Z79.01 Long term (current) use of anticoagulants
CPT/HCPCS: 96372; 99283; J0696

== ENCOUNTER 2024-09-02 14:57 | Emergency (ER) | payer MEDICARE, MEDICAID, SELFPAY ==
[2024-09-02 15:04] VITALS: BP 108/69; PULSE 87; RESP 17; TEMP 36.1; O2SAT 94; BMI 46.1
--- NOTE | 2024-09-02 18:12 | DI.RAD.S_ITS ---
PROCEDURE: XR KNEE RT 1TO2V INDICATIONS: pain after injury TECHNIQUE: 2 views of the knee were acquired. COMPARISON: None. FINDINGS: Bones: No acute fractures or dislocations. No suspicious bony lesions. Severe tricompartmental osteoarthrosis. Soft tissues: Moderate joint effusion. Suspected intra-articular loose body posterior to the intercondylar notch. IMPRESSION: 1. No acute osseous abnormality. If there is continued clinical concern or persistent symptoms, repeat radiographs or cross-sectional imaging (e.g. CT, MRI) may be helpful for further evaluation. 2. Severe tricompartmental osteoarthrosis. 3. Moderate joint effusion with suspected intra-articular loose body. Approved by: Sandoval Rowell M.D. on 09/02/2024 at 19:29
--- NOTE | 2024-09-02 19:57 | ED.EXTPRO ---
HPI - Extremity Problem General Chief complaint: Extremity Problem,Nontraumatic Stated complaint: px in rt leg Time Seen by Provider: 09/02/24 18:11 Source: patient and family Mode of arrival: Wheelchair History of Present Illness HPI Narrative: Patient is a 69-year-old female who at baseline has mobility issues who is here for evaluation of worsening right knee pain. There has been no specific trauma although she has been somewhat immobile over the past couple weeks because of the pain.. She states that the pain is bad enough that she was not able to walk but pressure on it. No prior surgeries to his right knee. No fevers. No skin changes over the area. Her right ankle and right hip are unremarkable. She went to a outside emergency department several days ago. Has a prescription for hydrocodone but she states it is not been helping her symptoms. Related Data Home Medications Medication Instructions Recorded Confirmed latanoprost 0.005 % eye drops drp EYE-BOTH 07/10/22 09/02/24 rivaroxaban 20 mg tablet (Xarelto) 20 mg PO DAILY 11/13/23 09/02/24 flecainide 50 mg tablet 50 mg PO DAILY 01/09/24 09/02/24 metoprolol succinate 25 mg 25 mg PO BID 01/09/24 09/02/24 tablet,extended release 24 hr Previous Rx's Medication Instructions Recorded Disabled Parking Permit #1 ea 07/11/23 BD Purewick Female External #1 ea 08/20/23 Catheter System fluoxetine 40 mg capsule 40 mg PO DAILY #90 caps 11/13/23 metformin 500 mg tablet 500 mg PO BID #180 tabs 11/13/23 mirtazapine 45 mg tablet 45 mg PO BEDTIME #90 tabs 11/13/23 atorvastatin 40 mg tablet 40 mg PO BEDTIME #90 tabs 11/15/23 torsemide 20 mg tablet 20 mg PO DAILY #90 tabs 11/15/23 blood sugar diagnostic (Blood #100 ea 11/21/23 Glucose Test strips) blood-glucose meter #1 ea 11/21/23 lancets (Fingerstix Lancets) #100 ea 11/21/23 gabapentin 300 mg capsule 300 mg PO .COMPLEX #270 caps 05/12/24 oxybutynin chloride 15 mg 15 mg PO DAILY #90 tabs 05/12/24 tablet,extended release 24 hr semaglutide 1 mg/dose (4 mg/3 mL) 1 mg (0.75 mL) SUBCUT QWEEK #3 mL 08/11/24 subcutaneous pen injector (Ozempic) oxycodone-acetaminophen 5 mg-325 1 tab PO Q4-6H PRN pain #14 tabs 09/02/24 mg tablet (Percocet) Allergies Allergy/AdvReac Type Severity Reaction Status Date / Time No Known Drug Allergies Allergy Verified 09/02/24 15:03 Review of Systems Review of Systems Narrative: See HPI Patient History Medical History Cellulitis Essential hypertension Paroxysmal A-fib Dyslipidemia Diabetes mellitus type 2, controlled, without complications Normally functioning cardiac pacemaker present Fatty liver disease, nonalcoholic Skin tag (~1969) Osteoarthritis Depression (~1999) Anxiety (~1999) Carpal tunnel syndrome Cataracts, bilateral (~1999) Urinary incontinence, urge (~2011) Borderline glaucoma Chronic left shoulder pain Prediabetes CAD (coronary artery disease) Systolic heart failure (~2019) Surgical History Anesthesia History of cataract removal with insertion of prosthetic lens (~2015) Family History Father Cancer Mother No problems noted. Brother Alcoholism Schizophrenia Mental health problem Family/Other Hypertension Paranoia Mental health problem Social History Smoking Status: Never smoker Smoking Status: Never smoker alcohol intake frequency: holidays/special occasions only Substance Use Type: marijuana Exam Initial Vital Signs Initial Vital Signs: Vital Signs Temperature 97.0 F L 09/02/24 15:04 Pulse Rate 87 09/02/24 15:04 Respiratory Rate 17 09/02/24 15:04 Blood Pressure 108/69 09/02/24 15:04 Pulse Oximetry 94 09/02/24 15:04 Oxygen Delivery Method Room Air 09/02/24 15:04 Skin General: no rashes or lesions noted Neuro Sensory Exam: no sensory deficits noted Extrem Other: Discomfort with palpation of the right knee but there was no effusion. Is somewhat limited with flexion of the right because of pain. Course Orders Ordered: ED Orders 09/02/24 18:12 XR knee RT 1to2V Stat Discontinued Medications Hydromorphone HCl (Hydromorphone 1 Mg Inj) 1 mg IM NOW ONE Stop: 09/02/24 19:58 Last Admin: 09/02/24 20:19 Dose: 1 mg Documented By: BERENICE Oxycodone/Acetaminophen (Oxycodone/Apap 5/325 Prepack) 1 bottle MISC DIRECTED ONE Stop: 09/02/24 19:58 Last Admin: 09/02/24 20:19 Dose: 1 bottle Documented By: BERENICE Vital Signs Vital signs: Vital Signs - 8 hr 09/02/24 20:18 Pulse Rate 80 Respiratory Rate 20 Blood Pressure 129/69 Pulse Oximetry 97 Oxygen Delivery Method Room Air MDM - Extremity (Nontraumatic) Imaging Data Extremity x-ray #1: Radiologist's Impression: PROCEDURE: XR KNEE RT 1TO2V INDICATIONS: pain after injury TECHNIQUE: 2 views of the knee were acquired. COMPARISON: None. FINDINGS: Bones: No acute fractures or dislocations. No suspicious bony lesions. Severe tricompartmental osteoarthrosis. Soft tissues: Moderate joint effusion. Suspected intra-articular loose body posterior to the intercondylar notch. IMPRESSION: 1. No acute osseous abnormality. If there is continued clinical concern or persistent symptoms, repeat radiographs or cross-sectional imaging (e.g. CT, MRI) may be helpful for further evaluation. 2. Severe tricompartmental osteoarthrosis. 3. Moderate joint effusion with suspected intra-articular loose body. [facility] Narrative Medical decision making narrative: X-ray shows no fractures nor dislocations. Heart exam was not consistent with cellulitis. Low suspicion for septic joint or gout. No dislocation. No specific trauma. I suspect that the discomfort is related to arthritis and immobility and muscle weakness. No indication for admission to the hospital. She has a walker at home. Inform the patient that despite the discomfort she can put pressure on her right knee and I recommended that she continue with home physical therapy to improve mobility. Will change her medications from hydrocodone to oxycodone. Will discharge patient home with instructions to follow up primary doctor. Discharge Plan Departure Patient Disposition: Home Clinical Impression: Pain in right knee, Arthritis Instructions: How To Perform RICE (Rest, Ice, Compress, Elevate), DI for Arthritis Activity Restrictions/Additional Instructions: Your x-ray today does show arthritis but no other signs of a fracture or dislocation. This means that you can put pressure on your right leg despite the discomfort that you were having. It was going to be important that you continue to exercise your right knee. Take the pain medication as needed. Contact your primary doctor for follow-up. Prescriptions: New oxycodone-acetaminophen [Percocet] 5-325 mg tablet 1 tab PO Q4-6H PRN (Reason: pain) Qty: 14 0RF No Action (DME) lancets [Fingerstix Lancets] Misc See Rx Instructions .Route Qty: 100 3RF Rx Instructions: As directed (DME) blood-glucose meter Misc See Rx Instructions .Route Qty: 1 0RF Rx Instructions: As directed (DME) Blood Glucose Test Strip See Rx Instructions .Route Qty: 100 3RF Rx Instructions: As directed latanoprost 0.005 % drops EYE-BOTH (DME) BD Purewick Female External Catheter System See Rx Instructions .Route .MEDSUPPLY Qty: 1 0RF Rx Instructions: For at post op use Xarelto 20 mg tablet 20 mg PO DAILY mirtazapine 45 mg tablet 45 mg PO BEDTIME Qty: 90 3RF fluoxetine 40 mg capsule 40 mg PO DAILY Qty: 90 3RF metformin 500 mg tablet 500 mg PO BID Qty: 180 3RF torsemide 20 mg tablet 20 mg PO DAILY Qty: 90 3RF atorvastatin 40 mg tablet 40 mg PO BEDTIME Qty: 90 3RF Ozempic 1 mg/dose (4 mg/3 mL) pen injector 1 mg SUBCUT QWEEK Qty: 3 3RF (DME) Disabled Parking Permit See Rx Instructions .Route .MEDSUPPLY Qty: 1 0RF Rx Instructions: Valid for 5 years gabapentin 300 mg capsule 300 mg PO .COMPLEX Qty: 270 1RF Rx Instructions: Take 1 cap by mouth every morning and 2 caps at bedtime oxybutynin chloride 15 mg tablet extended release 24hr 15 mg PO DAILY Qty: 90 1RF flecainide 50 mg tablet 50 mg PO DAILY metoprolol succinate 25 mg tablet extended release 24 hr 25 mg PO BID Referrals: Nicolás Gillis ARNP [Primary Care Provider] - Stand Alone Forms: Patient Portal/API/Survey
[2024-09-02 20:18] VITALS: BP 129/69; PULSE 80; RESP 20; O2SAT 97
[2024-09-02] MEDS: HYDROMORPHONE 1 MG INJ IM (20:19)
[2024-09-02] MEDS: OXYCODONE/APAP 5/325 PREPACK 1 BOTTLE MISC (20:19)
== END 2024-09-02 20:25 | disposition home or self-care (01) ==
PROVIDERS: Emergency Provider Emergency Medicine; PCP Registered Nurse Diabetes Educator
DX: M17.11 Unilateral primary osteoarthritis, right knee (principal); M25.561 Pain in right knee
CPT/HCPCS: 73560; 96372; 99283; 99284; J1171

== ENCOUNTER 2024-09-29 17:45 | Observation (INO) | payer MEDICARE, MEDICAID, SELFPAY ==
[2024-09-29] VITALS (15 sets, daily range): BP systolic 138–168; BP diastolic 72–78; PULSE 97–110; RESP 18–32; TEMP 36.4; O2SAT 92–97
--- NOTE | 2024-09-29 18:03 | PC.NURSE ---
Home Health nurse Naima is calling [facility]. PCP is Dean Gillis.
[2024-09-29 18:06] LABS: Add Manual Diff / Slide Review NO; Basophils Absolute Auto 100 /uL (0-100); Basophils Percent Auto 0.8 % (0-2); Eosinophils Absolute Auto 100 /uL (0-450); Eosinophils Percent Auto 0.8 % (2-4); Hematocrit 31.3 % (36-46); Hemoglobin 9.8 g/dL (12.0-16.0); Lymphocytes Absolute Auto 2300 /uL (1100-4500); Lymphocytes Percent Auto 17.9 % (25-40); Mean Corpuscular HGB Conc 31.3 % (30-36); Mean Corpuscular Hemoglobin 24.9 PG (26-34); Mean Corpuscular Volume 79.5 fL (80-100); Monocytes Absolute Auto 700 /uL (0-900); Monocytes Percent Auto 5.4 % (3-14); Neutrophils Absolute Auto 9800 /uL (1500-7000); Neutrophils Percent Auto 75.1 % (50-75); Platelet Count 326 X10^3/uL (150-400); Red Blood Cell Count 3.93 X10^6/uL (4.0-5.2); Red Cell Distribution Width 16.4 % (11.6-14.8)
--- NOTE | 2024-09-29 18:14 | DI.RAD.S_ITS ---
PROCEDURE: XR KNEE LT 1TO2V INDICATIONS: pain TECHNIQUE: 2 views of the knee were acquired. COMPARISON: None. FINDINGS: Bones: No acute fractures or dislocations. No suspicious bony lesions. Severe degenerative changes at the medial femorotibial compartment with full-thickness joint space narrowing, subchondral sclerosis, and remodeling of the articular surfaces. Bulky tricompartmental marginal osteophytes. Suspected moderate to severe degenerative changes at the anterior and lateral compartments. Soft tissues: Moderate joint effusion. Suspected calcified intra-articular loose body posterior to the knee. IMPRESSION: Tricompartmental left knee osteoarthrosis, most severe at the medial femorotibial compartment. Moderate joint effusion. If there is continued clinical concern or persistent symptoms, repeat radiographs or cross-sectional imaging (e.g. CT, MRI) may be helpful for further evaluation. Approved by: Sandoval Rowell M.D. on 09/29/2024 at 19:53
[2024-09-29 18:20] LABS: Alanine Aminotransferase 41 IU/L (<35); Albumin 3.2 g/dL (3.5-5.0); Albumin Globulin Ratio 0.7 (1.0-2.8); Alkaline Phosphatase 277 U/L (38-126); Aspartate Aminotransferase 56 IU/L (14-36); BUN Creatinine Ratio 36.6 (6-22); Bilirubin Total 1.1 mg/dL (0.2-1.3); Blood Urea Nitrogen 15 mg/dL (7-17); Calcium 9.8 mg/dL (8.4-10.2); Carbon Dioxide 26 mmol/L (22-32); Chloride 101 mmol/L (98-107); Estimated Glomerular Filt Rate > 60 mL/min (>60); Globulin 4.6 g/dL (1.7-4.1); Glucose 119 mg/dL (80-110); HEMOLYSIS 39 (0-50); Lactate (Lactic Acid) 1.4 mmol/L (0.7-2.1); Potassium 3.9 mmol/L (3.4-5.1); Sodium 135 mmol/L (137-145); Total Protein 7.8 g/dL (6.3-8.2)
--- NOTE | 2024-09-29 18:22 | EKG_ITS ---
[address] [address] Test Date: 2024-09-29 Pat Name: Belen Hays Department: [facility] Room: Gender: Female [employer] Floor Installer: LENORA : 1955 Requested By: Order Number: [id number] Reading MD: Adeel Howard MD Measurements Intervals [place] Rate: 96 P: 82 WV: 180 QRS: 102 QRSD: 160 T: -2 QT: 400 QTc: 505 Interpretive Statements Atrial-sensed ventricular-paced rhythm Electronically Signed On 09-30-2024 10:35:48 PST by Adeel Howard MD
--- NOTE | 2024-09-29 18:31 | ED.SKABFB ---
HPI - Skin/Abscess/Foreign Bdy <Erika Bush MD - Last Filed: 10/01/24 19:06> General Chief complaint: Skin/Abscess/Foreign Body Stated complaint: Failure to thrive Time Seen by Provider: 09/29/24 17:56 Source: patient and EMS Mode of arrival: EMS History of Present Illness HPI narrative: 69-year-old female with history of paroxysmal AFib, arthritis, prediabetes, pacemaker placement, morbid obesity presents by EMS from home for inability to care for self. Patient has reportedly been bed-bound due to severe bilateral knee pain for the last 2 months. She had a telehealth visit with her nurse practitioner on 09/10 and it was noted that patient was bed-bound at that time, attributed to severe pain from tricompartmental osteoarthritis. Patient and daughter requested inpatient rehab, however due to insurance issues home health services were started instead as they could be utilized more immediately. Per daughter the home care nurse came today and noted that the patient seemed to be in severe pain with developing bedsores on her buttocks. She advised the daughter to call 911. Related Data Home Medications Medication Instructions Recorded Confirmed latanoprost 0.005 % eye drops 1 drp EYE-BOTH BEDTIME 07/10/22 10/01/24 rivaroxaban 20 mg tablet (Xarelto) 20 mg PO DAILY 11/13/23 09/30/24 flecainide 50 mg tablet 50 mg PO BID 01/09/24 09/30/24 metoprolol succinate 25 mg 25 mg PO DAILY 01/09/24 09/30/24 tablet,extended release 24 hr aspirin 81 mg tablet 81 mg PO DAILY 09/30/24 09/30/24 Previous Rx's Medication Instructions Recorded Disabled Parking Permit #1 ea 07/11/23 [email or web address] Female External #1 ea 08/20/23 Catheter System fluoxetine 40 mg capsule 40 mg PO DAILY #90 caps 11/13/23 metformin 500 mg tablet 500 mg PO BID #180 tabs 11/13/23 mirtazapine 45 mg tablet 45 mg PO BEDTIME #90 tabs 11/13/23 atorvastatin 40 mg tablet 40 mg PO BEDTIME #90 tabs 11/15/23 blood sugar diagnostic (Blood #100 ea 11/21/23 Glucose Test strips) blood-glucose meter #1 ea 11/21/23 lancets (Fingerstix Lancets) #100 ea 11/21/23 gabapentin 300 mg capsule 300 mg PO .COMPLEX #270 caps 05/12/24 oxybutynin chloride 15 mg 15 mg PO DAILY #90 tabs 05/12/24 tablet,extended release 24 hr semaglutide 1 mg/dose (4 mg/3 mL) 1 mg (0.75 mL) SUBCUT QWEEK #3 mL 08/11/24 subcutaneous pen injector (Ozempic) oxycodone-acetaminophen 7.5 mg-325 1 tab PO Q4-6H PRN pain #20 tabs 09/10/24 mg tablet Allergies Allergy/AdvReac Type Severity Reaction Status Date / Time No Known Drug Allergies Allergy Verified 09/29/24 18:00 Patient History <Erika Bush MD - Last Filed: 10/01/24 19:06> Medical History Cellulitis Essential hypertension Paroxysmal A-fib Dyslipidemia Diabetes mellitus type 2, controlled, without complications Normally functioning cardiac pacemaker present Fatty liver disease, nonalcoholic Skin tag (~1969) Osteoarthritis Depression (~1999) Anxiety (~1999) Carpal tunnel syndrome Cataracts, bilateral (~1999) Urinary incontinence, urge (~2011) Borderline glaucoma Chronic left shoulder pain Prediabetes CAD (coronary artery disease) Systolic heart failure (~2019) Surgical History Anesthesia History of cataract removal with insertion of prosthetic lens (~2015) Family History Father Cancer Mother No problems noted. Brother Alcoholism Schizophrenia Mental health problem Family/Other Hypertension Paranoia Mental health problem Social History household members: children Smoking Status: Never smoker Smoking Status: Never smoker alcohol intake frequency: holidays/special occasions only Substance Use Type: marijuana Exam <Erika Bush MD - Last Filed: 10/01/24 19:06> Initial Vital Signs Initial Vital Signs: Vital Signs Pulse Oximetry 94 09/29/24 17:47 Const: Awake, alert, morbidly obese, debilitated Cardiac: regular rate, regular rhythm RESP: unlabored, clear bilaterally, no wheezing MSK: No deformity, crying with any attempt at manipulation of legs, able to wiggle toes Skin: scattered stage 2 pressure ulcers on buttocks. No evidence of acute infection. See nursing photo Neuro: AO x3, CN II-XII grossly intact, moves all extremities <Erika Silver DO - Last Filed: 10/03/24 08:18> Initial Vital Signs Initial Vital Signs: Vital Signs Pulse Oximetry 94 09/29/24 17:47 <Tia Zarate MD - Last Filed: 10/01/24 18:53> Initial Vital Signs Initial Vital Signs: Vital Signs Pulse Oximetry 94 09/29/24 17:47 Course <Erika Bush MD - Last Filed: 10/01/24 19:06> Orders Ordered: Acetaminophen (Acetaminophen 325 Mg Tablet) 650 mg PO Q6H PRN PRN Reason: Fever/Mild Pain (1-3) Last Admin: 10/02/24 08:35 Dose: 650 mg Documented By: JENNIFER Hydrocodone Bitart/Acetaminophen (Hydrocodone/Acet 5/325 Tablet) 1 tab PO Q4H PRN PRN Reason: Pain, Moderate (4-6) Al Hydrox/Mg Hydrox/Simethicone (Mag Hydrox/Alum/Simeth 30 Ml Udc) 30 ml PO Q6HR PRN PRN Reason: Dyspepsia Aspirin (Aspirin Ec 81 Mg Tablet) 81 mg PO DAILY [facility] Last Admin: 10/02/24 11:15 Dose: 81 mg Documented By: BT Atorvastatin Calcium (Atorvastatin 20 Mg Tablet) 40 mg PO BEDTIME [facility] Last Admin: 10/02/24 20:44 Dose: 40 mg Documented By: Admin: 10/01/24 20:57 Dose: 40 mg Documented By: Admin: 09/30/24 21:19 Dose: 40 mg Documented By: SB Cephalexin HCl (Cephalexin 250 Mg Capsule) 500 mg PO TID [facility] Last Admin: 10/02/24 20:44 Dose: 500 mg Documented By: Admin: 10/02/24 15:33 Dose: 500 mg Documented By: Admin: 10/02/24 08:37 Dose: 500 mg Documented By: Admin: 10/01/24 20:57 Dose: 500 mg Documented By: Admin: 10/01/24 15:24 Dose: 500 mg Documented By: Admin: 10/01/24 08:18 Dose: 500 mg Documented By: Admin: 09/30/24 21:19 Dose: 500 mg Documented By: Admin: 09/30/24 15:16 Dose: 500 mg Documented By: Admin: 09/30/24 09:25 Dose: 500 mg Documented By: HERMELINDA Cyclobenzaprine HCl (Cyclobenzaprine 10 Mg Tablet) 10 mg PO Q8HR PRN PRN Reason: Spasms Last Admin: 10/02/24 08:36 Dose: 10 mg Documented By: BT Flecainide Acetate (Flecainide 100 Mg Tablet) 50 mg PO BID [facility] Last Admin: 10/02/24 20:42 Dose: 50 mg Documented By: Admin: 10/02/24 08:36 Dose: 50 mg Documented By: Admin: 10/01/24 20:57 Dose: 50 mg Documented By: Admin: 10/01/24 08:19 Dose: 50 mg Documented By: Admin: 09/30/24 21:29 Dose: 50 mg Documented By: Admin: 09/30/24 09:25 Dose: 50 mg Documented By: HERMELINDA Fluoxetine HCl (Fluoxetine 20 Mg Capsule) 40 mg PO DAILY [facility] Last Admin: 10/02/24 11:15 Dose: 40 mg Documented By: JENNIFER Gabapentin (Gabapentin 100 Mg Capsule) 100 mg PO TID [facility] Last Admin: 10/02/24 20:37 Dose: Not Given Documented By: Admin: 10/02/24 18:34 Dose: Not Given Documented By: Admin: 10/02/24 11:15 Dose: 100 mg Documented By: BT Sodium Chloride (Normal Saline 0.9%) 1,000 mls @ 100 mls/hr IV CONT [facility] Last Admin: 10/03/24 01:01 Dose: 100 mls/hr Documented By: Infusion: 10/03/24 01:01 Dose: Infused Documented By: Admin: 10/02/24 15:35 Dose: 100 mls/hr Documented By: Infusion: 10/02/24 05:13 Dose: Infused Documented By: Admin: 10/01/24 19:13 Dose: 100 mls/hr Documented By: BT Latanoprost (Latanoprost 0.005% Ophth 2.5 Ml) 1 drops EYE-BOTH BEDTIME [facility] Last Admin: 10/02/24 20:45 Dose: Not Given Documented By: SR Lidocaine (Lidocaine 5% Patch) 1 each TOP DAILY [facility] Last Admin: 10/02/24 11:17 Dose: 1 each Documented By: JENNIFER Lidocaine (Remove Lidocaine Patch) 1 each TOP BEDTIME [facility] Last Admin: 10/02/24 20:45 Dose: 1 each Documented By: SR Metformin HCl (Metformin Hcl 500 Mg Tablet) 500 mg PO 0800,1700 [facility] Last Admin: 10/02/24 15:33 Dose: 500 mg Documented By: Admin: 10/02/24 08:37 Dose: 500 mg Documented By: Admin: 10/01/24 17:21 Dose: 500 mg Documented By: Admin: 10/01/24 08:19 Dose: 500 mg Documented By: Admin: 09/30/24 17:27 Dose: 500 mg Documented By: JERRELL Metoprolol Succinate (Metoprolol Er 25 Mg Tablet) 25 mg PO DAILY [facility] Last Admin: 10/02/24 08:36 Dose: 25 mg Documented By: Admin: 10/01/24 08:19 Dose: 25 mg Documented By: Admin: 09/30/24 09:26 Dose: 25 mg Documented By: HERMELINDA Mirtazapine (Mirtazapine 15 Mg Tablet) 45 mg PO BEDTIME [facility] Last Admin: 10/02/24 20:44 Dose: 45 mg Documented By: Naloxone HCl (Naloxone 0.4 Mg/Ml Vial) 0.2 mg IV Q2MIN PRN PRN Reason: Opiate Reversal Non-Formulary Medication (Oxycodone-Acetaminophen) 1 tab PO Q4H PRN PRN Reason: Pain, Moderate (4-6) Ondansetron HCl (Ondansetron 4 Mg/2 Ml Inj) 4 mg IV Q8HR PRN PRN Reason: Nausea And Vomiting Oxybutynin Chloride (Oxybutynin 5 Mg Er Tab) 15 mg PO DAILY [facility] Last Admin: 10/02/24 08:36 Dose: 15 mg Documented By: Admin: 10/01/24 08:19 Dose: 15 mg Documented By: Admin: 09/30/24 09:26 Dose: 15 mg Documented By: HERMELINDA Oxycodone/Acetaminophen (Oxycodone/Acetaminophen 5/325 Tablet) 2 tab PO Q6HR PRN PRN Reason: Pain, Severe (7-10) Last Admin: 10/03/24 03:42 Dose: 2 tab Documented By: Admin: 10/02/24 13:13 Dose: 2 tab Documented By: Admin: 10/02/24 06:36 Dose: 2 tab Documented By: Admin: 10/01/24 17:24 Dose: 2 tab Documented By: Admin: 10/01/24 09:44 Dose: 2 tab Documented By: Admin: 09/30/24 15:43 Dose: 2 tab Documented By: JERRELL Rivaroxaban (Rivaroxaban 10 Mg Tablet) 20 mg PO DAILY [facility] Last Admin: 10/02/24 08:35 Dose: 20 mg Documented By: Admin: 10/01/24 08:18 Dose: 20 mg Documented By: Admin: 09/30/24 09:27 Dose: 20 mg Documented By: HERMELINDA Discontinued Medications Hydromorphone HCl (Hydromorphone 0.5 Mg Inj) 0.5 mg IV NOW ONE Stop: 09/30/24 00:49 Last Admin: 09/30/24 00:52 Dose: 0.5 mg Documented By: ISRAEL(2) Morphine Sulfate (Morphine 4 Mg/Ml Inj) 4 mg IV NOW ONE Stop: 09/29/24 18:33 Last Admin: 09/29/24 18:43 Dose: 4 mg Documented By: TYREE Oxycodone/Acetaminophen (Oxycodone/Acetaminophen 5/325 Tablet) 2 tab PO NOW ONE Stop: 09/30/24 09:31 Last Admin: 09/30/24 09:42 Dose: 2 tab Documented By: HERMELINDA Potassium Chloride (Potassium Chloride 20 Meq Tab) 40 meq PO Q6H [facility] Stop: 10/02/24 13:31 Last Admin: 10/02/24 15:33 Dose: Not Given Documented By: Admin: 10/02/24 08:34 Dose: 40 meq Documented By: JENNIFER Potassium Chloride (Potassium Chloride 20 Meq Tab) 40 meq PO Q6H [facility] Stop: 10/02/24 15:31 Last Admin: 10/02/24 15:32 Dose: 40 meq Documented By: ESTER Vital Signs Vital signs: Vital Signs - 8 hr 10/01/24 09:05 Temperature 98.0 F Pulse Rate 95 H Respiratory Rate 14 Blood Pressure [Left Wrist] 125/70 Pulse Oximetry 93 Oxygen Delivery Method Room Air <Erika C Mank, DO - Last Filed: 10/03/24 08:18> Orders Ordered: Acetaminophen (Acetaminophen 325 Mg Tablet) 650 mg PO Q6H PRN PRN Reason: Fever/Mild Pain (1-3) Last Admin: 10/02/24 08:35 Dose: 650 mg Documented By: BT Hydrocodone Bitart/Acetaminophen (Hydrocodone/Acet 5/325 Tablet) 1 tab PO Q4H PRN PRN Reason: Pain, Moderate (4-6) Al Hydrox/Mg Hydrox/Simethicone (Mag Hydrox/Alum/Simeth 30 Ml Udc) 30 ml PO Q6HR PRN PRN Reason: Dyspepsia Aspirin (Aspirin Ec 81 Mg Tablet) 81 mg PO DAILY [facility] Last Admin: 10/02/24 11:15 Dose: 81 mg Documented By: BT Atorvastatin Calcium (Atorvastatin 20 Mg Tablet) 40 mg PO BEDTIME [facility] Last Admin: 10/02/24 20:44 Dose: 40 mg Documented By: Admin: 10/01/24 20:57 Dose: 40 mg Documented By: Admin: 09/30/24 21:19 Dose: 40 mg Documented By: JERRELL Cephalexin HCl (Cephalexin 250 Mg Capsule) 500 mg PO TID [facility] Last Admin: 10/02/24 20:44 Dose: 500 mg Documented By: Admin: 10/02/24 15:33 Dose: 500 mg Documented By: Admin: 10/02/24 08:37 Dose: 500 mg Documented By: Admin: 10/01/24 20:57 Dose: 500 mg Documented By: Admin: 10/01/24 15:24 Dose: 500 mg Documented By: Admin: 10/01/24 08:18 Dose: 500 mg Documented By: Admin: 09/30/24 21:19 Dose: 500 mg Documented By: Admin: 09/30/24 15:16 Dose: 500 mg Documented By: Admin: 09/30/24 09:25 Dose: 500 mg Documented By: HERMELINDA Cyclobenzaprine HCl (Cyclobenzaprine 10 Mg Tablet) 10 mg PO Q8HR PRN PRN Reason: Spasms Last Admin: 10/02/24 08:36 Dose: 10 mg Documented By: JENNIFER Flecainide Acetate (Flecainide 100 Mg Tablet) 50 mg PO BID [facility] Last Admin: 10/02/24 20:42 Dose: 50 mg Documented By: Admin: 10/02/24 08:36 Dose: 50 mg Documented By: Admin: 10/01/24 20:57 Dose: 50 mg Documented By: Admin: 10/01/24 08:19 Dose: 50 mg Documented By: Admin: 09/30/24 21:29 Dose: 50 mg Documented By: Admin: 09/30/24 09:25 Dose: 50 mg Documented By: HERMELINDA Fluoxetine HCl (Fluoxetine 20 Mg Capsule) 40 mg PO DAILY [facility] Last Admin: 10/02/24 11:15 Dose: 40 mg Documented By: BT Gabapentin (Gabapentin 100 Mg Capsule) 100 mg PO TID [facility] Last Admin: 10/02/24 20:37 Dose: Not Given Documented By: Admin: 10/02/24 18:34 Dose: Not Given Documented By: Admin: 10/02/24 11:15 Dose: 100 mg Documented By: JENNIFER Sodium Chloride (Normal Saline 0.9%) 1,000 mls @ 100 mls/hr IV CONT [facility] Last Admin: 10/03/24 01:01 Dose: 100 mls/hr Documented By: Infusion: 10/03/24 01:01 Dose: Infused Documented By: Admin: 10/02/24 15:35 Dose: 100 mls/hr Documented By: Infusion: 10/02/24 05:13 Dose: Infused Documented By: Admin: 10/01/24 19:13 Dose: 100 mls/hr Documented By: JENNIFER Latanoprost (Latanoprost 0.005% Ophth 2.5 Ml) 1 drops EYE-BOTH BEDTIME [facility] Last Admin: 10/02/24 20:45 Dose: Not Given Documented By: SR Lidocaine (Lidocaine 5% Patch) 1 each TOP DAILY [facility] Last Admin: 10/02/24 11:17 Dose: 1 each Documented By: JENNIFER Lidocaine (Remove Lidocaine Patch) 1 each TOP BEDTIME [facility] Last Admin: 10/02/24 20:45 Dose: 1 each Documented By: SR Metformin HCl (Metformin Hcl 500 Mg Tablet) 500 mg PO 0800,1700 [facility] Last Admin: 10/02/24 15:33 Dose: 500 mg Documented By: Admin: 10/02/24 08:37 Dose: 500 mg Documented By: Admin: 10/01/24 17:21 Dose: 500 mg Documented By: Admin: 10/01/24 08:19 Dose: 500 mg Documented By: Admin: 09/30/24 17:27 Dose: 500 mg Documented By: JERRELL Metoprolol Succinate (Metoprolol Er 25 Mg Tablet) 25 mg PO DAILY [facility] Last Admin: 10/02/24 08:36 Dose: 25 mg Documented By: Admin: 10/01/24 08:19 Dose: 25 mg Documented By: Admin: 09/30/24 09:26 Dose: 25 mg Documented By: HERMELINDA Mirtazapine (Mirtazapine 15 Mg Tablet) 45 mg PO BEDTIME [facility] Last Admin: 10/02/24 20:44 Dose: 45 mg Documented By: Naloxone HCl (Naloxone 0.4 Mg/Ml Vial) 0.2 mg IV Q2MIN PRN PRN Reason: Opiate Reversal Non-Formulary Medication (Oxycodone-Acetaminophen) 1 tab PO Q4H PRN PRN Reason: Pain, Moderate (4-6) Ondansetron HCl (Ondansetron 4 Mg/2 Ml Inj) 4 mg IV Q8HR PRN PRN Reason: Nausea And Vomiting Oxybutynin Chloride (Oxybutynin 5 Mg Er Tab) 15 mg PO DAILY [facility] Last Admin: 10/02/24 08:36 Dose: 15 mg Documented By: Admin: 10/01/24 08:19 Dose: 15 mg Documented By: Admin: 09/30/24 09:26 Dose: 15 mg Documented By: HERMELINDA Oxycodone/Acetaminophen (Oxycodone/Acetaminophen 5/325 Tablet) 2 tab PO Q6HR PRN PRN Reason: Pain, Severe (7-10) Last Admin: 10/03/24 03:42 Dose: 2 tab Documented By: Admin: 10/02/24 13:13 Dose: 2 tab Documented By: Admin: 10/02/24 06:36 Dose: 2 tab Documented By: Admin: 10/01/24 17:24 Dose: 2 tab Documented By: Admin: 10/01/24 09:44 Dose: 2 tab Documented By: Admin: 09/30/24 15:43 Dose: 2 tab Documented By: JERRELL Rivaroxaban (Rivaroxaban 10 Mg Tablet) 20 mg PO DAILY [facility] Last Admin: 10/02/24 08:35 Dose: 20 mg Documented By: Admin: 10/01/24 08:18 Dose: 20 mg Documented By: Admin: 09/30/24 09:27 Dose: 20 mg Documented By: HERMELINDA Discontinued Medications Hydromorphone HCl (Hydromorphone 0.5 Mg Inj) 0.5 mg IV NOW ONE Stop: 09/30/24 00:49 Last Admin: 09/30/24 00:52 Dose: 0.5 mg Documented By: ISRAEL(2) Morphine Sulfate (Morphine 4 Mg/Ml Inj) 4 mg IV NOW ONE Stop: 09/29/24 18:33 Last Admin: 09/29/24 18:43 Dose: 4 mg Documented By: TYREE Oxycodone/Acetaminophen (Oxycodone/Acetaminophen 5/325 Tablet) 2 tab PO NOW ONE Stop: 09/30/24 09:31 Last Admin: 09/30/24 09:42 Dose: 2 tab Documented By: HERMELINDA Potassium Chloride (Potassium Chloride 20 Meq Tab) 40 meq PO Q6H [facility] Stop: 10/02/24 13:31 Last Admin: 10/02/24 15:33 Dose: Not Given Documented By: Admin: 10/02/24 08:34 Dose: 40 meq Documented By: JENNIFER Potassium Chloride (Potassium Chloride 20 Meq Tab) 40 meq PO Q6H [facility] Stop: 10/02/24 15:31 Last Admin: 10/02/24 15:32 Dose: 40 meq Documented By: ESTER Vital Signs Vital signs: Vital Signs - 8 hr 10/01/24 09:05 Temperature 98.0 F Pulse Rate 95 H Respiratory Rate 14 Blood Pressure [Left Wrist] 125/70 Pulse Oximetry 93 Oxygen Delivery Method Room Air <Tia Zarate MD - Last Filed: 10/01/24 18:53> Orders Ordered: Acetaminophen (Acetaminophen 325 Mg Tablet) 650 mg PO Q6H PRN PRN Reason: Fever/Mild Pain (1-3) Last Admin: 10/02/24 08:35 Dose: 650 mg Documented By: JENNIFER Hydrocodone Bitart/Acetaminophen (Hydrocodone/Acet 5/325 Tablet) 1 tab PO Q4H PRN PRN Reason: Pain, Moderate (4-6) Al Hydrox/Mg Hydrox/Simethicone (Mag Hydrox/Alum/Simeth 30 Ml Udc) 30 ml PO Q6HR PRN PRN Reason: Dyspepsia Aspirin (Aspirin Ec 81 Mg Tablet) 81 mg PO DAILY [facility] Last Admin: 10/02/24 11:15 Dose: 81 mg Documented By: BT Atorvastatin Calcium (Atorvastatin 20 Mg Tablet) 40 mg PO BEDTIME [facility] Last Admin: 10/02/24 20:44 Dose: 40 mg Documented By: Admin: 10/01/24 20:57 Dose: 40 mg Documented By: Admin: 09/30/24 21:19 Dose: 40 mg Documented By: JERRELL Cephalexin HCl (Cephalexin 250 Mg Capsule) 500 mg PO TID [facility] Last Admin: 10/02/24 20:44 Dose: 500 mg Documented By: Admin: 10/02/24 15:33 Dose: 500 mg Documented By: Admin: 10/02/24 08:37 Dose: 500 mg Documented By: Admin: 10/01/24 20:57 Dose: 500 mg Documented By: Admin: 10/01/24 15:24 Dose: 500 mg Documented By: Admin: 10/01/24 08:18 Dose: 500 mg Documented By: Admin: 09/30/24 21:19 Dose: 500 mg Documented By: Admin: 09/30/24 15:16 Dose: 500 mg Documented By: Admin: 09/30/24 09:25 Dose: 500 mg Documented By: HERMELINDA Cyclobenzaprine HCl (Cyclobenzaprine 10 Mg Tablet) 10 mg PO Q8HR PRN PRN Reason: Spasms Last Admin: 10/02/24 08:36 Dose: 10 mg Documented By: JENNIFER Flecainide Acetate (Flecainide 100 Mg Tablet) 50 mg PO BID [facility] Last Admin: 10/02/24 20:42 Dose: 50 mg Documented By: Admin: 10/02/24 08:36 Dose: 50 mg Documented By: Admin: 10/01/24 20:57 Dose: 50 mg Documented By: Admin: 10/01/24 08:19 Dose: 50 mg Documented By: Admin: 09/30/24 21:29 Dose: 50 mg Documented By: Admin: 09/30/24 09:25 Dose: 50 mg Documented By: HERMELINDA Fluoxetine HCl (Fluoxetine 20 Mg Capsule) 40 mg PO DAILY [facility] Last Admin: 10/02/24 11:15 Dose: 40 mg Documented By: JENNIFER Gabapentin (Gabapentin 100 Mg Capsule) 100 mg PO TID [facility] Last Admin: 10/02/24 20:37 Dose: Not Given Documented By: Admin: 10/02/24 18:34 Dose: Not Given Documented By: Admin: 10/02/24 11:15 Dose: 100 mg Documented By: JENNIFER Sodium Chloride (Normal Saline 0.9%) 1,000 mls @ 100 mls/hr IV CONT [facility] Last Admin: 10/03/24 01:01 Dose: 100 mls/hr Documented By: Infusion: 10/03/24 01:01 Dose: Infused Documented By: Admin: 10/02/24 15:35 Dose: 100 mls/hr Documented By: Infusion: 10/02/24 05:13 Dose: Infused Documented By: Admin: 10/01/24 19:13 Dose: 100 mls/hr Documented By: JENNIFER Latanoprost (Latanoprost 0.005% Ophth 2.5 Ml) 1 drops EYE-BOTH BEDTIME [facility] Last Admin: 10/02/24 20:45 Dose: Not Given Documented By: Lidocaine (Lidocaine 5% Patch) 1 each TOP DAILY [facility] Last Admin: 10/02/24 11:17 Dose: 1 each Documented By: JENNIFER Lidocaine (Remove Lidocaine Patch) 1 each TOP BEDTIME [facility] Last Admin: 10/02/24 20:45 Dose: 1 each Documented By: Metformin HCl (Metformin Hcl 500 Mg Tablet) 500 mg PO 0800,1700 [facility] Last Admin: 10/02/24 15:33 Dose: 500 mg Documented By: Admin: 10/02/24 08:37 Dose: 500 mg Documented By: Admin: 10/01/24 17:21 Dose: 500 mg Documented By: Admin: 10/01/24 08:19 Dose: 500 mg Documented By: Admin: 09/30/24 17:27 Dose: 500 mg Documented By: JERRELL Metoprolol Succinate (Metoprolol Er 25 Mg Tablet) 25 mg PO DAILY [facility] Last Admin: 10/02/24 08:36 Dose: 25 mg Documented By: Admin: 10/01/24 08:19 Dose: 25 mg Documented By: Admin: 09/30/24 09:26 Dose: 25 mg Documented By: HERMELINDA Mirtazapine (Mirtazapine 15 Mg Tablet) 45 mg PO BEDTIME [facility] Last Admin: 10/02/24 20:44 Dose: 45 mg Documented By: Naloxone HCl (Naloxone 0.4 Mg/Ml Vial) 0.2 mg IV Q2MIN PRN PRN Reason: Opiate Reversal Non-Formulary Medication (Oxycodone-Acetaminophen) 1 tab PO Q4H PRN PRN Reason: Pain, Moderate (4-6) Ondansetron HCl (Ondansetron 4 Mg/2 Ml Inj) 4 mg IV Q8HR PRN PRN Reason: Nausea And Vomiting Oxybutynin Chloride (Oxybutynin 5 Mg Er Tab) 15 mg PO DAILY [facility] Last Admin: 10/02/24 08:36 Dose: 15 mg Documented By: Admin: 10/01/24 08:19 Dose: 15 mg Documented By: Admin: 09/30/24 09:26 Dose: 15 mg Documented By: HERMELINDA Oxycodone/Acetaminophen (Oxycodone/Acetaminophen 5/325 Tablet) 2 tab PO Q6HR PRN PRN Reason: Pain, Severe (7-10) Last Admin: 10/03/24 03:42 Dose: 2 tab Documented By: Admin: 10/02/24 13:13 Dose: 2 tab Documented By: Admin: 10/02/24 06:36 Dose: 2 tab Documented By: Admin: 10/01/24 17:24 Dose: 2 tab Documented By: Admin: 10/01/24 09:44 Dose: 2 tab Documented By: Admin: 09/30/24 15:43 Dose: 2 tab Documented By: JERRELL Rivaroxaban (Rivaroxaban 10 Mg Tablet) 20 mg PO DAILY [facility] Last Admin: 10/02/24 08:35 Dose: 20 mg Documented By: Admin: 10/01/24 08:18 Dose: 20 mg Documented By: Admin: 09/30/24 09:27 Dose: 20 mg Documented By: HERMELINDA Discontinued Medications Hydromorphone HCl (Hydromorphone 0.5 Mg Inj) 0.5 mg IV NOW ONE Stop: 09/30/24 00:49 Last Admin: 09/30/24 00:52 Dose: 0.5 mg Documented By: ISRAEL(2) Morphine Sulfate (Morphine 4 Mg/Ml Inj) 4 mg IV NOW ONE Stop: 09/29/24 18:33 Last Admin: 09/29/24 18:43 Dose: 4 mg Documented By: TYREE Oxycodone/Acetaminophen (Oxycodone/Acetaminophen 5/325 Tablet) 2 tab PO NOW ONE Stop: 09/30/24 09:31 Last Admin: 09/30/24 09:42 Dose: 2 tab Documented By: HERMELINDA Potassium Chloride (Potassium Chloride 20 Meq Tab) 40 meq PO Q6H [facility] Stop: 10/02/24 13:31 Last Admin: 10/02/24 15:33 Dose: Not Given Documented By: Admin: 10/02/24 08:34 Dose: 40 meq Documented By: JENNIFER Potassium Chloride (Potassium Chloride 20 Meq Tab) 40 meq PO Q6H [facility] Stop: 10/02/24 15:31 Last Admin: 10/02/24 15:32 Dose: 40 meq Documented By: ESTER Vital Signs Vital signs: Vital Signs - 8 hr 10/01/24 09:05 Temperature 98.0 F Pulse Rate 95 H Respiratory Rate 14 Blood Pressure [Left Wrist] 125/70 Pulse Oximetry 93 Oxygen Delivery Method Room Air MDM - Skin/Abscess/Foreign Bdy <Erika Bush MD - Last Filed: 10/01/24 19:06> Differential Diagnosis Differential diagnosis: Likely abscess of skin or subcutaneous tissue, dermatophytosis and cellulitis Lab Data 10/02/24 05:54 10/03/24 06:15 Labs: Lab Results 09/29/24 09/29/24 09/30/24 Range/Units 17:55 23:10 09:04 WBC 13.0 H 12.1 H (4.5-11.0) X10^3/uL RBC 3.93 L 3.56 L (4.0-5.2) X10^6/uL Hgb 9.8 L 8.8 L (12.0-16.0) g/dL Hct 31.3 L 28.1 L (36-46) % MCV 79.5 L 79.0 L (80-100) fL MCH 24.9 L 24.8 L (26-34) PG MCHC 31.3 31.4 (30-36) % RDW 16.4 H 16.3 H (11.6-14.8) % Plt Count 326 312 (150-400) X10^3/uL Neut % (Auto) 75.1 H 78.1 H (50-75) % Lymph % (Auto) 17.9 L 14.3 L (25-40) % Atlantic % (Auto) 5.4 6.1 (3-14) % Eos % (Auto) 0.8 L 0.7 L (2-4) % Baso % (Auto) 0.8 0.8 (0-2) % Neut # (Auto) 9800 H 9500 H (2389-4952) /uL Lymph # (Auto) 2300 1700 (0190-2098) /uL Atlantic # (Auto) 700 700 (0-900) /uL Eos # (Auto) 100 100 (0-450) /uL Baso # (Auto) 100 100 (0-100) /uL Sodium 135 L 134 L (137-145) mmol/L Potassium 3.9 3.8 (3.4-5.1) mmol/L Chloride 101 100 (98-107) mmol/L Carbon Dioxide 26 24 (22-32) mmol/L BUN 15 16 (7-17) mg/dL Creatinine 0.41 L 0.50 L (0.52-1.04) mg/dL Estimated GFR > 60 > 60 (>60) mL/min BUN/Creatinine Ratio 36.6 H 32.0 H (6-22) Glucose 119 H 140 H (80-110) mg/dL Lactate 1.4 (0.7-2.1) mmol/L Calcium 9.8 9.6 (8.4-10.2) mg/dL Total Bilirubin 1.1 0.9 (0.2-1.3) mg/dL AST 56 H 39 H (14-36) IU/L ALT 41 H 33 (<35) IU/L Alkaline Phosphatase 277 H 237 H (38-126) U/L NT-Pro-B Natriuret Pep 1280 H (<125) pg/mL Total Protein 7.8 6.9 (6.3-8.2) g/dL Albumin 3.2 L 3.0 L (3.5-5.0) g/dL Globulin 4.6 H 3.9 (1.7-4.1) g/dL Albumin/Globulin Ratio 0.7 L 0.8 L (1.0-2.8) Procalcitonin 0.259 0.267 (<0.5) ng/mL Ur Bilirubin Confirm Positive H (Negative) Urine RBC None seen (0-5/HPF) Urine WBC 0-1/hpf (0-5/HPF) Ur Squamous Epith Cells 1-5 /hpf (0-5/HPF) Urine Bacteria Many (>30) H (None) Ur Culture Indicated? Cult not indicated Vol Urine Centrifuged 10ml (spun) 09/30/24 Range/Units 16:55 WBC 12.0 H (4.5-11.0) X10^3/uL RBC 3.72 L (4.0-5.2) X10^6/uL Hgb 9.2 L (12.0-16.0) g/dL Hct 29.2 L (36-46) % MCV 78.6 L (80-100) fL MCH 24.7 L (26-34) PG MCHC 31.4 (30-36) % RDW 16.7 H (11.6-14.8) % Plt Count 337 (150-400) X10^3/uL Neut % (Auto) 75.0 (50-75) % Lymph % (Auto) 17.1 L (25-40) % Atlantic % (Auto) 6.6 (3-14) % Eos % (Auto) 0.8 L (2-4) % Baso % (Auto) 0.5 (0-2) % Neut # (Auto) 9000 H (2077-0389) /uL Lymph # (Auto) 2100 (9868-4368) /uL Atlantic # (Auto) 800 (0-900) /uL Eos # (Auto) 100 (0-450) /uL Baso # (Auto) 100 (0-100) /uL Sodium (137-145) mmol/L Potassium (3.4-5.1) mmol/L Chloride (98-107) mmol/L Carbon Dioxide (22-32) mmol/L BUN (7-17) mg/dL Creatinine (0.52-1.04) mg/dL Estimated GFR (>60) mL/min BUN/Creatinine Ratio (6-22) Glucose (80-110) mg/dL Lactate (0.7-2.1) mmol/L Calcium (8.4-10.2) mg/dL Total Bilirubin (0.2-1.3) mg/dL AST (14-36) IU/L ALT (<35) IU/L Alkaline Phosphatase (38-126) U/L NT-Pro-B Natriuret Pep (<125) pg/mL Total Protein (6.3-8.2) g/dL Albumin (3.5-5.0) g/dL Globulin (1.7-4.1) g/dL Albumin/Globulin Ratio (1.0-2.8) Procalcitonin (<0.5) ng/mL Ur Bilirubin Confirm (Negative) Urine RBC (0-5/HPF) Urine WBC (0-5/HPF) Ur Squamous Epith Cells (0-5/HPF) Urine Bacteria (None) Ur Culture Indicated? Vol Urine Centrifuged Point of Care Testing Glucose POC 149 Urine Dip Bedside Urine Glucose Negative Bedside Urine Bilirubin + 1 Bedside Urine Ketone ++ 40 Urine Specific [place] 1.020 Bedside Urine Occult Blood - Negative Bedside Urine pH 6.0 Bedside Urine Protein + 30 Bedside Urine Urobilinogen +/- 1mg Bedside Urine Nitrite - Negative Bedside Urine Leukocytes + 70 Esterase Imaging Data Extremity x-ray #1: Radiologist's Impression: PROCEDURE: XR KNEE LT 1TO2V INDICATIONS: pain TECHNIQUE: 2 views of the knee were acquired. COMPARISON: None. FINDINGS: Bones: No acute fractures or dislocations. No suspicious bony lesions. Severe degenerative changes at the medial femorotibial compartment with full-thickness joint space narrowing, subchondral sclerosis, and remodeling of the articular surfaces. Bulky tricompartmental marginal osteophytes. Suspected moderate to severe degenerative changes at the anterior and lateral compartments. Soft tissues: Moderate joint effusion. Suspected calcified intra-articular loose body posterior to the knee. IMPRESSION: Tricompartmental left knee osteoarthrosis, most severe at the medial femorotibial compartment. Moderate joint effusion. If there is continued clinical concern or persistent symptoms, repeat radiographs or cross-sectional imaging (e.g. CT, MRI) may be helpful for further evaluation. Approved by: Sandoval Rowell M.D. on 09/29/2024 at 19:53 MDM Narrative Medical decision making narrative: Patient presenting for inability to care for self as she was bed-bound due to severe knee pain. Complains of knee pain but is able to sleep comfortably, any time someone approaches or appears to be about to touch her knees she begins to cry and scream. We were able to roll the patient over to assess her skin - she has several scattered stage II bedsores on her buttocks without obvious signs of suppuration or infection. No bleeding noted. Laboratory work reviewed -WBC count 13.0, hemoglobin 9.8, platelets 326, sodium 135, potassium 3.9, creatinine 0.41, AST 56, ALT 16, alk phos 277. Hemoglobin seems to have dropped slightly from previous values in November 2023, however patient denies dark stools or bleeding. Her only real complaint is the pain in her knees when she tries to move them. The knees themselves are not erythematous, overly warm to touch, or show signs of overlying infection. Urinalysis negative for signs of infection. Patient is unable to be discharged home due to her severe debility, will keep in ED for CAR MOVER further eval in the morning. Monitored overnight without event. Care of patient is signed over to daytime physician at 7:00 a.m. 09/30/2024 Dr. Silver: Patient signed out to myself. Patient is seen and evaluated. Reviewed her labs from last night, overnight stay was uneventful. Goal for patient is inpatient placement. We will repeat a.m. labs to make sure no major changes. Wounds did not appear infected but urine shows possible UTI so we will start oral cephalexin. Patient's home medications were confirmed with her family as patient was unsure and were ordered as well as SCDs. CAR MOVER to evaluate. White count of 13 decreased to 12, hemoglobin 8.8 was 9.8 yesterday day microcytic both checks platelets are 312. Sodium is 134 potassium chloride and CO2 were normal BUN 62 creatinine 0.5 glucose is 140 LFTs are slightly improved with a AST of 39 normal ALT of 33 alk-phos of 237 bilirubin 0.9. Procalcitonin is 0.267. Patient had repeat H&H appears stable with a hemoglobin of 9.2 white count is 12. Also performed stool guaiac which was negative. CAR MOVER met with patient. PT evaluated patient recommends SNF. Spoke with Dr. Warren, hospitalist asked if we can add on a chest x-ray, repeat a H&H at 5:00 p.m. and add on BNP. If patient has guaiac-positive or dropping hemoglobin are elevated BNP would potentially have observation criteria. At this time patient does not meet any observation or admission criteria after discussion with Dr. Warren. Per current policy monitor patient for 48 hours in the department and re-contact hospitalist for social admit. Patient signed out to Dr. Bush while awaiting final disposition. Dr Bush - no events overnight. Care returned to Daytime physician at 0700 430pm 10/01 Discussed with CAR MOVER Patient had additional blood work done as suggested by Dr. Warren. Hemoglobin is actually increasing. In the ER she still is so weak she is having trouble sitting up in bed, difficulty even dangling her legs off the bed to eat lunch. In the absence of any criteria that might qualify her for an inpatient stay and then penitentiary care, once she is admitted to the hospital she can apparently be assessed by [facility] team to see if she qualifies for more outpatient care. They apparently are not able to assess her in the emergency department. She is able to meet increased criteria through [facility] than her daughter can be paid for more caregiving hours and home health can then increase home health hours. Private pay has been discussed and there no resources for that currently. We will review care with Dr. Hearn, patient is currently at her 48 hour ER evaluation.. <Erika Silver DO - Last Filed: 10/03/24 08:18> Lab Data Labs: Lab Results 09/29/24 09/29/24 09/30/24 Range/Units 17:55 23:10 09:04 WBC 13.0 H 12.1 H (4.5-11.0) X10^3/uL RBC 3.93 L 3.56 L (4.0-5.2) X10^6/uL Hgb 9.8 L 8.8 L (12.0-16.0) g/dL Hct 31.3 L 28.1 L (36-46) % MCV 79.5 L 79.0 L (80-100) fL MCH 24.9 L 24.8 L (26-34) PG MCHC 31.3 31.4 (30-36) % RDW 16.4 H 16.3 H (11.6-14.8) % Plt Count 326 312 (150-400) X10^3/uL Neut % (Auto) 75.1 H 78.1 H (50-75) % Lymph % (Auto) 17.9 L 14.3 L (25-40) % Atlantic % (Auto) 5.4 6.1 (3-14) % Eos % (Auto) 0.8 L 0.7 L (2-4) % Baso % (Auto) 0.8 0.8 (0-2) % Neut # (Auto) 9800 H 9500 H (2605-5054) /uL Lymph # (Auto) 2300 1700 (0412-4627) /uL Atlantic # (Auto) 700 700 (0-900) /uL Eos # (Auto) 100 100 (0-450) /uL Baso # (Auto) 100 100 (0-100) /uL Sodium 135 L 134 L (137-145) mmol/L Potassium 3.9 3.8 (3.4-5.1) mmol/L Chloride 101 100 (98-107) mmol/L Carbon Dioxide 26 24 (22-32) mmol/L BUN 15 16 (7-17) mg/dL Creatinine 0.41 L 0.50 L (0.52-1.04) mg/dL Estimated GFR > 60 > 60 (>60) mL/min BUN/Creatinine Ratio 36.6 H 32.0 H (6-22) Glucose 119 H 140 H (80-110) mg/dL Lactate 1.4 (0.7-2.1) mmol/L Calcium 9.8 9.6 (8.4-10.2) mg/dL Total Bilirubin 1.1 0.9 (0.2-1.3) mg/dL AST 56 H 39 H (14-36) IU/L ALT 41 H 33 (<35) IU/L Alkaline Phosphatase 277 H 237 H (38-126) U/L NT-Pro-B Natriuret Pep 1280 H (<125) pg/mL Total Protein 7.8 6.9 (6.3-8.2) g/dL Albumin 3.2 L 3.0 L (3.5-5.0) g/dL Globulin 4.6 H 3.9 (1.7-4.1) g/dL Albumin/Globulin Ratio 0.7 L 0.8 L (1.0-2.8) Procalcitonin 0.259 0.267 (<0.5) ng/mL Ur Bilirubin Confirm Positive H (Negative) Urine RBC None seen (0-5/HPF) Urine WBC 0-1/hpf (0-5/HPF) Ur Squamous Epith Cells 1-5 /hpf (0-5/HPF) Urine Bacteria Many (>30) H (None) Ur Culture Indicated? Cult not indicated Vol Urine Centrifuged 10ml (spun) 09/30/24 Range/Units 16:55 WBC 12.0 H (4.5-11.0) X10^3/uL RBC 3.72 L (4.0-5.2) X10^6/uL Hgb 9.2 L (12.0-16.0) g/dL Hct 29.2 L (36-46) % MCV 78.6 L (80-100) fL MCH 24.7 L (26-34) PG MCHC 31.4 (30-36) % RDW 16.7 H (11.6-14.8) % Plt Count 337 (150-400) X10^3/uL Neut % (Auto) 75.0 (50-75) % Lymph % (Auto) 17.1 L (25-40) % Atlantic % (Auto) 6.6 (3-14) % Eos % (Auto) 0.8 L (2-4) % Baso % (Auto) 0.5 (0-2) % Neut # (Auto) 9000 H (4762-7588) /uL Lymph # (Auto) 2100 (9653-6060) /uL Atlantic # (Auto) 800 (0-900) /uL Eos # (Auto) 100 (0-450) /uL Baso # (Auto) 100 (0-100) /uL Sodium (137-145) mmol/L Potassium (3.4-5.1) mmol/L Chloride (98-107) mmol/L Carbon Dioxide (22-32) mmol/L BUN (7-17) mg/dL Creatinine (0.52-1.04) mg/dL Estimated GFR (>60) mL/min BUN/Creatinine Ratio (6-22) Glucose (80-110) mg/dL Lactate (0.7-2.1) mmol/L Calcium (8.4-10.2) mg/dL Total Bilirubin (0.2-1.3) mg/dL AST (14-36) IU/L ALT (<35) IU/L Alkaline Phosphatase (38-126) U/L NT-Pro-B Natriuret Pep (<125) pg/mL Total Protein (6.3-8.2) g/dL Albumin (3.5-5.0) g/dL Globulin (1.7-4.1) g/dL Albumin/Globulin Ratio (1.0-2.8) Procalcitonin (<0.5) ng/mL Ur Bilirubin Confirm (Negative) Urine RBC (0-5/HPF) Urine WBC (0-5/HPF) Ur Squamous Epith Cells (0-5/HPF) Urine Bacteria (None) Ur Culture Indicated? Vol Urine Centrifuged Point of Care Testing Glucose POC 149 Urine Dip Bedside Urine Glucose Negative Bedside Urine Bilirubin + 1 Bedside Urine Ketone ++ 40 Urine Specific [place] 1.020 Bedside Urine Occult Blood - Negative Bedside Urine pH 6.0 Bedside Urine Protein + 30 Bedside Urine Urobilinogen +/- 1mg Bedside Urine Nitrite - Negative Bedside Urine Leukocytes + 70 Esterase MDM Narrative Medical decision making narrative: Patient presenting for inability to care for self as she was bed-bound due to severe knee pain. Complains of knee pain but is able to sleep comfortably, any time someone approaches or appears to be about to touch her knees she begins to cry and scream. We were able to roll the patient over to assess her skin - she has several scattered stage II bedsores on her buttocks without obvious signs of suppuration or infection. No bleeding noted. Laboratory work reviewed -WBC count 13.0, hemoglobin 9.8, platelets 326, sodium 135, potassium 3.9, creatinine 0.41, AST 56, ALT 16, alk phos 277. Hemoglobin seems to have dropped slightly from previous values in November 2023, however patient denies dark stools or bleeding. Her only real complaint is the pain in her knees when she tries to move them. The knees themselves are not erythematous, overly warm to touch, or show signs of overlying infection. Urinalysis negative for signs of infection. Patient is unable to be discharged home due to her severe debility, will keep in ED for CAR MOVER further eval in the morning. Monitored overnight without event. Care of patient is signed over to daytime physician at 7:00 a.m. 09/30/2024 Dr. Silver: Patient signed out to myself. Patient is seen and evaluated. Reviewed her labs from last night, overnight stay was uneventful. Goal for patient is inpatient placement. We will repeat a.m. labs to make sure no major changes. Wounds did not appear infected but urine shows possible UTI so we will start oral cephalexin. Patient's home medications were confirmed with her family as patient was unsure and were ordered as well as SCDs. CAR MOVER to evaluate. White count of 13 decreased to 12, hemoglobin 8.8 was 9.8 yesterday day microcytic both checks platelets are 312. Sodium is 134 potassium chloride and CO2 were normal BUN 62 creatinine 0.5 glucose is 140 LFTs are slightly improved with a AST of 39 normal ALT of 33 alk-phos of 237 bilirubin 0.9. Procalcitonin is 0.267. Patient had repeat H&H appears stable with a hemoglobin of 9.2 white count is 12. Also performed stool guaiac which was negative. CAR MOVER met with patient. PT evaluated patient recommends SNF. Spoke with Dr. Warren, hospitalist asked if we can add on a chest x-ray, repeat a H&H at 5:00 p.m. and add on BNP. If patient has guaiac-positive or dropping hemoglobin are elevated BNP would potentially have observation criteria. At this time patient does not meet any observation or admission criteria after discussion with Dr. Warren. Per current policy monitor patient for 48 hours in the department and re-contact hospitalist for social admit. Patient signed out to Dr. Bush while awaiting final disposition. Dr Bush - no events overnight. Care returned to Daytime physician at 0700 430pm 10/01 Discussed with CAR MOVER Patient had additional blood work done as suggested by Dr. Warren. Hemoglobin is actually increasing. In the ER she still is so weak she is having trouble sitting up in bed, difficulty even dangling her legs off the bed to eat lunch. In the absence of any criteria that might qualify her for an inpatient stay and then penitentiary care, once she is admitted to the hospital she can apparently be assessed by [facility] team to see if she qualifies for more outpatient care. They apparently are not able to assess her in the emergency department. She is able to meet increased criteria through [facility] than her daughter can be paid for more caregiving hours and home health can then increase home health hours. Private pay has been discussed and there no resources for that currently. We will review care with Dr. Hearn, patient is currently at her 48 hour ER evaluation.. <Tia Zarate MD - Last Filed: 10/01/24 18:53> Lab Data Labs: Lab Results 09/29/24 09/29/24 09/30/24 Range/Units 17:55 23:10 09:04 WBC 13.0 H 12.1 H (4.5-11.0) X10^3/uL RBC 3.93 L 3.56 L (4.0-5.2) X10^6/uL Hgb 9.8 L 8.8 L (12.0-16.0) g/dL Hct 31.3 L 28.1 L (36-46) % MCV 79.5 L 79.0 L (80-100) fL MCH 24.9 L 24.8 L (26-34) PG MCHC 31.3 31.4 (30-36) % RDW 16.4 H 16.3 H (11.6-14.8) % Plt Count 326 312 (150-400) X10^3/uL Neut % (Auto) 75.1 H 78.1 H (50-75) % Lymph % (Auto) 17.9 L 14.3 L (25-40) % Atlantic % (Auto) 5.4 6.1 (3-14) % Eos % (Auto) 0.8 L 0.7 L (2-4) % Baso % (Auto) 0.8 0.8 (0-2) % Neut # (Auto) 9800 H 9500 H (7790-3692) /uL Lymph # (Auto) 2300 1700 (8680-6144) /uL Atlantic # (Auto) 700 700 (0-900) /uL Eos # (Auto) 100 100 (0-450) /uL Baso # (Auto) 100 100 (0-100) /uL Sodium 135 L 134 L (137-145) mmol/L Potassium 3.9 3.8 (3.4-5.1) mmol/L Chloride 101 100 (98-107) mmol/L Carbon Dioxide 26 24 (22-32) mmol/L BUN 15 16 (7-17) mg/dL Creatinine 0.41 L 0.50 L (0.52-1.04) mg/dL Estimated GFR > 60 > 60 (>60) mL/min BUN/Creatinine Ratio 36.6 H 32.0 H (6-22) Glucose 119 H 140 H (80-110) mg/dL Lactate 1.4 (0.7-2.1) mmol/L Calcium 9.8 9.6 (8.4-10.2) mg/dL Total Bilirubin 1.1 0.9 (0.2-1.3) mg/dL AST 56 H 39 H (14-36) IU/L ALT 41 H 33 (<35) IU/L Alkaline Phosphatase 277 H 237 H (38-126) U/L NT-Pro-B Natriuret Pep 1280 H (<125) pg/mL Total Protein 7.8 6.9 (6.3-8.2) g/dL Albumin 3.2 L 3.0 L (3.5-5.0) g/dL Globulin 4.6 H 3.9 (1.7-4.1) g/dL Albumin/Globulin Ratio 0.7 L 0.8 L (1.0-2.8) Procalcitonin 0.259 0.267 (<0.5) ng/mL Ur Bilirubin Confirm Positive H (Negative) Urine RBC None seen (0-5/HPF) Urine WBC 0-1/hpf (0-5/HPF) Ur Squamous Epith Cells 1-5 /hpf (0-5/HPF) Urine Bacteria Many (>30) H (None) Ur Culture Indicated? Cult not indicated Vol Urine Centrifuged 10ml (spun) 09/30/24 Range/Units 16:55 WBC 12.0 H (4.5-11.0) X10^3/uL RBC 3.72 L (4.0-5.2) X10^6/uL Hgb 9.2 L (12.0-16.0) g/dL Hct 29.2 L (36-46) % MCV 78.6 L (80-100) fL MCH 24.7 L (26-34) PG MCHC 31.4 (30-36) % RDW 16.7 H (11.6-14.8) % Plt Count 337 (150-400) X10^3/uL Neut % (Auto) 75.0 (50-75) % Lymph % (Auto) 17.1 L (25-40) % Atlantic % (Auto) 6.6 (3-14) % Eos % (Auto) 0.8 L (2-4) % Baso % (Auto) 0.5 (0-2) % Neut # (Auto) 9000 H (3780-6313) /uL Lymph # (Auto) 2100 (8029-4539) /uL Atlantic # (Auto) 800 (0-900) /uL Eos # (Auto) 100 (0-450) /uL Baso # (Auto) 100 (0-100) /uL Sodium (137-145) mmol/L Potassium (3.4-5.1) mmol/L Chloride (98-107) mmol/L Carbon Dioxide (22-32) mmol/L BUN (7-17) mg/dL Creatinine (0.52-1.04) mg/dL Estimated GFR (>60) mL/min BUN/Creatinine Ratio (6-22) Glucose (80-110) mg/dL Lactate (0.7-2.1) mmol/L Calcium (8.4-10.2) mg/dL Total Bilirubin (0.2-1.3) mg/dL AST (14-36) IU/L ALT (<35) IU/L Alkaline Phosphatase (38-126) U/L NT-Pro-B Natriuret Pep (<125) pg/mL Total Protein (6.3-8.2) g/dL Albumin (3.5-5.0) g/dL Globulin (1.7-4.1) g/dL Albumin/Globulin Ratio (1.0-2.8) Procalcitonin (<0.5) ng/mL Ur Bilirubin Confirm (Negative) Urine RBC (0-5/HPF) Urine WBC (0-5/HPF) Ur Squamous Epith Cells (0-5/HPF) Urine Bacteria (None) Ur Culture Indicated? Vol Urine Centrifuged Point of Care Testing Glucose POC 149 Urine Dip Bedside Urine Glucose Negative Bedside Urine Bilirubin + 1 Bedside Urine Ketone ++ 40 Urine Specific [place] 1.020 Bedside Urine Occult Blood - Negative Bedside Urine pH 6.0 Bedside Urine Protein + 30 Bedside Urine Urobilinogen +/- 1mg Bedside Urine Nitrite - Negative Bedside Urine Leukocytes + 70 Esterase MDM Narrative Medical decision making narrative: Patient presenting for inability to care for self as she was bed-bound due to severe knee pain. Complains of knee pain but is able to sleep comfortably, any time someone approaches or appears to be about to touch her knees she begins to cry and scream. We were able to roll the patient over to assess her skin - she has several scattered stage II bedsores on her buttocks without obvious signs of suppuration or infection. No bleeding noted. Laboratory work reviewed -WBC count 13.0, hemoglobin 9.8, platelets 326, sodium 135, potassium 3.9, creatinine 0.41, AST 56, ALT 16, alk phos 277. Hemoglobin seems to have dropped slightly from previous values in November 2023, however patient denies dark stools or bleeding. Her only real complaint is the pain in her knees when she tries to move them. The knees themselves are not erythematous, overly warm to touch, or show signs of overlying infection. Urinalysis negative for signs of infection. Patient is unable to be discharged home due to her severe debility, will keep in ED for CAR MOVER further eval in the morning. Monitored overnight without event. Care of patient is signed over to daytime physician at 7:00 a.m. 09/30/2024 Dr. Silver: Patient signed out to myself. Patient is seen and evaluated. Reviewed her labs from last night, overnight stay was uneventful. Goal for patient is inpatient placement. We will repeat a.m. labs to make sure no major changes. Wounds did not appear infected but urine shows possible UTI so we will start oral cephalexin. Patient's home medications were confirmed with her family as patient was unsure and were ordered as well as SCDs. CAR MOVER to evaluate. White count of 13 decreased to 12, hemoglobin 8.8 was 9.8 yesterday day microcytic both checks platelets are 312. Sodium is 134 potassium chloride and CO2 were normal BUN 62 creatinine 0.5 glucose is 140 LFTs are slightly improved with a AST of 39 normal ALT of 33 alk-phos of 237 bilirubin 0.9. Procalcitonin is 0.267. Patient had repeat H&H appears stable with a hemoglobin of 9.2 white count is 12. Also performed stool guaiac which was negative. CAR MOVER met with patient. PT evaluated patient recommends SNF. Spoke with Dr. Warren, hospitalist asked if we can add on a chest x-ray, repeat a H&H at 5:00 p.m. and add on BNP. If patient has guaiac-positive or dropping hemoglobin are elevated BNP would potentially have observation criteria. At this time patient does not meet any observation or admission criteria after discussion with Dr. Warren. Per current policy monitor patient for 48 hours in the department and re-contact hospitalist for social admit. Patient signed out to Dr. Bush while awaiting final disposition. 430pm 10/01 Discussed with CAR MOVER Patient had additional blood work done as suggested by Dr. Warren. Hemoglobin is actually increasing. In the ER she still is so weak she is having trouble sitting up in bed, difficulty even dangling her legs off the bed to eat lunch. In the absence of any criteria that might qualify her for an inpatient stay and then penitentiary care, once she is admitted to the hospital she can apparently be assessed by [facility] team to see if she qualifies for more outpatient care. They apparently are not able to assess her in the emergency department. She is able to meet increased criteria through [facility] than her daughter can be paid for more caregiving hours and home health can then increase home health hours. Private pay has been discussed and there no resources for that currently. We will review care with Dr. Hearn, patient is currently at her 48 hour ER evaluation.. Discharge Plan Departure Patient Disposition: Admitted as Observation Clinical Impression: Bedbound, Morbid obesity, Tricompartment osteoarthritis of knees, bilateral, Bed sore on buttock Admit Date/Time: 10/01/24 17:17 Admit Provider: Da Hearn
[2024-09-29 18:37] LABS: Procalcitonin 0.259 ng/mL (<0.5)
[2024-09-29] MEDS: MORPHINE 4 MG/ML INJ IV (18:43)
--- NOTE | 2024-09-29 19:18 | PC.WOUNDPHOT ---
Pressure wounds on left and right buttocks 2nd photo of pressure wounds on left and right buttocks.
[2024-09-29 23:40] LABS: Bacteria Urine Many (>30); Culture Indicated Urine Cult Not Indicated; Ictotest Urine Positive (Negative); RBC Urine None Seen (0-5/HPF); Squamous Epithelial Cell Urine 1-5 /HPF (0-5/HPF); Urine Volume 10mL (spun); WBC Urine 0-1/HPF (0-5/HPF)
[2024-09-30] VITALS (38 sets, daily range): BP systolic 110–152; BP diastolic 55–98; PULSE 84–116; RESP 18–30; TEMP 36.5–36.6; O2SAT 91–97; BMI 43.5
[2024-09-30] MEDS: HYDROMORPHONE 0.5 MG INJ IV (00:52)
--- NOTE | 2024-09-30 01:14 | PC.NURSE ---
Pt transferred to hospital bed with 6 person assist. Premedicated for pain with dilaudid; pt still c/o severe pain to legs with transfer. Pt turned to L side and instructed in importance of offloading pressure for wound healing. Pt verbalized understanding. Daughter at bedside updated to plan of care.
--- NOTE | 2024-09-30 04:13 | PC.NURSE ---
Pt shifted to her back, heels floated on pillows. Pt c/o severe pain with movement. Educated to the need for routine repositioning to maintain skin integrity.
[2024-09-30 09:12] LABS: Add Manual Diff / Slide Review NO; Basophils Absolute Auto 100 /uL (0-100); Basophils Percent Auto 0.8 % (0-2); Eosinophils Absolute Auto 100 /uL (0-450); Eosinophils Percent Auto 0.7 % (2-4); Hematocrit 28.1 % (36-46); Hemoglobin 8.8 g/dL (12.0-16.0); Lymphocytes Absolute Auto 1700 /uL (1100-4500); Lymphocytes Percent Auto 14.3 % (25-40); Mean Corpuscular HGB Conc 31.4 % (30-36); Mean Corpuscular Hemoglobin 24.8 PG (26-34); Monocytes Absolute Auto 700 /uL (0-900); Monocytes Percent Auto 6.1 % (3-14); Neutrophils Absolute Auto 9500 /uL (1500-7000); Neutrophils Percent Auto 78.1 % (50-75); Platelet Count 312 X10^3/uL (150-400); Red Blood Cell Count 3.56 X10^6/uL (4.0-5.2); Red Cell Distribution Width 16.3 % (11.6-14.8); White Blood Cell Count 12.1 X10^3/uL (4.5-11.0)
--- NOTE | 2024-09-30 09:24 | PC.NURSE ---
Pt repositioned to left side @0923. SCD applied to both legsand heel boots applied to both feet @0800
[2024-09-30 09:25] LABS: Alanine Aminotransferase 33 IU/L (<35); Albumin Globulin Ratio 0.8 (1.0-2.8); Alkaline Phosphatase 237 U/L (38-126); Aspartate Aminotransferase 39 IU/L (14-36); Bilirubin Total 0.9 mg/dL (0.2-1.3); Blood Urea Nitrogen 16 mg/dL (7-17); Calcium 9.6 mg/dL (8.4-10.2); Carbon Dioxide 24 mmol/L (22-32); Chloride 100 mmol/L (98-107); Estimated Glomerular Filt Rate > 60 mL/min (>60); Globulin 3.9 g/dL (1.7-4.1); Glucose 140 mg/dL (80-110); HEMOLYSIS < 15 (0-50); Potassium 3.8 mmol/L (3.4-5.1); Sodium 134 mmol/L (137-145); Total Protein 6.9 g/dL (6.3-8.2)
[2024-09-30] MEDS: cephALEXin 250 MG CAPSULE 500 MG PO ×3 (09:25→21:19)
[2024-09-30] MEDS: FLECAINIDE 100 MG TABLET 50 MG PO ×2 (09:25→21:29)
[2024-09-30] MEDS: METOPROLOL ER 25 MG TABLET PO (09:26)
[2024-09-30] MEDS: OXYBUTYNIN 5 MG ER TAB 15 MG PO (09:26)
[2024-09-30] MEDS: RIVAROXABAN 10 MG TABLET 20 MG PO (09:27)
--- NOTE | 2024-09-30 09:40 | PT.IIE ---
Surgical History (Last Reviewed 09/30/24 @ 00:40 by Erika Bush MD) Anesthesia History of cataract removal with insertion of prosthetic lens (~2015) Medical History (Last Reviewed 09/30/24 @ 00:40 by Erika Bush MD) Anxiety (~1999) Borderline glaucoma CAD (coronary artery disease) Carpal tunnel syndrome Cataracts, bilateral (~1999) Cellulitis Chronic left shoulder pain Depression (~1999) Diabetes mellitus type 2, controlled, without complications Dyslipidemia Essential hypertension Fatty liver disease, nonalcoholic Normally functioning cardiac pacemaker present Osteoarthritis Paroxysmal A-fib Prediabetes Skin tag (~1969) Systolic heart failure (~2019) Urinary incontinence, urge (~2011) Physical Therapy Inpatient Evaluation/Re-Eval M1 PT/OT-IP Prior Functional Status Start: 09/30/24 12:29 Freq: Status: Active Protocol: Document 09/30/24 09:40 AB (Rec: 09/30/24 12:48 AB [id number]) Medical Review Prior Functional Status Medical History Reviewed Yes Communication able to make needs known; with slight confusion Mobility and Gait per EMR: pt has been bed bound for ~ 2 months. Clarified with pt and pt confirmed that she has just been in bed but unsure for how long. pt stated that her daughter assists her with everything. pt stated that she has a purewick system at home that she uses for toileting and daughter assists her with hygiene care. pt stated that due to her B knee pain, she has not been getting out of the bed. prior to being bed bound, pt was ambulating using a FWW Social History Household Members children Living Arrangements Apartment/Condo Number of Floors (Floors) One Floor Number of Stairs To Enter/Railing? no steps to enter Home Environment Standard Height Toilet Home Equipment Front Wheel Walker,Hand Held Shower,Hospital Bed Additional Social History Comment pt lives with her daughter M2 PT-IP Current Condition Start: 09/30/24 12:29 Freq: Status: Active Protocol: Document 09/30/24 09:40 AB (Rec: 09/30/24 12:48 AB [id number]) Physical Therapy Current Condition Current Condition Evaluation Date 09/30/24 Treatment Diagnosis Failure to Thrive; difficulty in walking Onset Date 09/29/24 M3 PT-IP Subjective Start: 09/30/24 12:29 Freq: Status: Active Protocol: Document 09/30/24 09:40 AB (Rec: 09/30/24 12:48 AB [id number]) Subjective Physical Therapy Visit Type Type Initial Evaluation Visit Start Time 09:40 Visit Stop Time 10:40 Number of CAN TENDER Visits 0 Therapy Pain Assessment Pain When Pain Assessed At Rest Pain Present Pain Present Pain Reported Location Bilateral Knee Intensity 20 Scale Used R>L; increases with movement Pain Behaviors Calling Out,Facial Grimacing, Guarding Pain Management Techniques Distraction,Modification of Treatment,Re-positioning, Timing of Activity with Medications M4 PT-IP Mobility and Gait Start: 09/30/24 12:29 Freq: Status: Active Protocol: Document 09/30/24 09:40 AB (Rec: 09/30/24 12:48 [id number]) PT-Bed Mobility Assessment Supine to Sit Supine to Sit Total Assistance,2 Person Assistance,Head of Bed Elevated,Bedrails Sit to Supine Sit to Supine Total Assistance Scooting Scooting to Edge of Bed Dependent Scooting Up and Down in Bed Dependent PT-Transfer Assessment Comments Mobility Comments pt supine in bed. pt needed encouragement to pariticipate. obtained PLOF and home set up . pt completed heel slides supine in bed x 3 and max A to move BLE. pt completed supine to sit max Ax2-3 and max cues. HOB elevated and pt used bed rail to assist. mod to max A for initial sitting balance. total A x 2-3 for scooting to EOB. pt tolerated sitting on EOB ~ 5 min. pt refused to stand. pt requesting to lay back in bed. total A x 2 for side scooting towards HOB and total Ax 3 for bed mboitliy sit to supine. positioned pt in bed total A x 3. call light and table placed within reach. PT-Balance Assessment Sitting Balance and Reactions Static Sitting Balance Ability Fair Dynamic Sitting Balance Ability Poor M5 PT-IP Objective Assessments Start: 09/30/24 12:29 Freq: Status: Active Protocol: Document 09/30/24 09:40 AB (Rec: 09/30/24 12:48 [id number]) Orientation Orientation/Cognition Level of Alertness Confusional State Orientation Name,Place,Situation Safety Awareness Decreased Safety Awareness Memory Description Short Term Impaired,Residential Impaired Gross Range of Motion Lower Extremity ROM Impairments pt with c/o increase B knee pain even with slight movements and with increase guarding affecting ROM testing Strength Lower Extremity Strength Assessment Bilaterally Impaired Hip 3+/5 Knee 2+/5 Ankle 2+/5 M6 PT-IP Treatment Start: 09/30/24 12:29 Freq: Status: Active Protocol: Document 09/30/24 09:40 AB (Rec: 09/30/24 12:48 AB [id number]) Physical Therapy Treatment Exercises Exercises Heel Slides Education Education Provided Safety M7 PT-IP Assessment and Plan Start: 09/30/24 12:29 Freq: Status: Active Protocol: Document 09/30/24 09:40 AB (Rec: 09/30/24 12:48 AB [id number]) PT Summary Assessment and Plan Potential Rehabilitation Potential Fair Status of Condition at Evaluation Evolving Summary Impairments Pain,ROM,Strength,Balance, Coordination,Sensation,Tone, Cognition,Bed Mobility, Transfers,Gait,Activity Tolerance Assessment Summary pt is a 69 y/o F who presented to the ED for failure to thrive. per EMR, homehealth nurse saw pt having pain and developing bedsores and advised pt' daughter to call 911. pt confirmed that she has been bed bound for awhile but not sure for how long and that her daughter has been assisting her at home. pt requiring max A x 2-3 to total A x 3 for mobility. pt was only able to sit on EOB and refuse to stand due to c/o increase B knee pain. pt will require SNF rehab to improve overall strength and mobility. Goals Bed Mobility Goal Moderate Assistance Transfer Goal Moderate Assistance Gait Goal Moderate Assistance Gait Distance 15 Other Goals improve bed mobility, transfers, ambulation using FWW 50 ft CGA Days to Meet Goals 10 Frequency of Treatment Frequency Of Treatment Once a Day Treatment Plan Physical Therapy Treatment Plan Bed Mobility Training,Transfer Training,Gait Training, Therapeutic Exercise,Balance Retraining,Discharge Planning, Hot or Cold Pack,Neuromuscular Re-ed,Coordination Retraining ,Manual Therapy Recommendations To Nursing Amount of Assist Needed Mechanical Lift Discharge Recommendations PT Discharge Recommendations SNF Rehab Transportation Needs at Discharge Wheelchair/Cabulance,Stretcher /Ambulance
[2024-09-30 09:42] LABS: Procalcitonin 0.267 ng/mL (<0.5)
[2024-09-30] MEDS: OXYCODONE/ACETAMINOPHEN 5/325 TABLET 2 TAB PO ×2 (09:42→15:43)
--- NOTE | 2024-09-30 13:05 | DI.RAD.S_ITS ---
PROCEDURE: XR CHEST 1V INDICATIONS: eval weakness TECHNIQUE: One view of the chest was acquired. COMPARISON: None. FINDINGS: Surgical changes and devices: Pacemaker. Lungs and pleura: Lungs are clear. No pleural effusions or pneumothorax. Mediastinum: Mediastinal contours appear normal. Heart size is normal. Bones and chest wall: No suspicious bony lesions. Overlying soft tissues appear unremarkable. IMPRESSION: No acute pulmonary process. Dictated by: Roslyn Walden M.D. on 09/30/2024 at 14:57 Approved by: Roslyn Walden M.D. on 09/30/2024 at 14:58
[2024-09-30 13:42] LABS: NT-proBNP (BNP-Adult 18+) 1280 pg/mL (<125)
--- NOTE | 2024-09-30 15:45 | CM.SWNOTE ---
ED RAYON CONER Note Patient is 69 y/o female who presents to ED via EMS due to concern for knee pain, failure to thrive, not eating and lack of mobility. Patient had initial intake with [facility] and RN recommended patient go to ED due to pain, bed sores, lack of nutrition intake and concerns for safety at home. It is reported that APS was contacted by [facility] as well. Patient's PCP is SCHUYLER Bell. Patient has Medicare and Medicaid insurance. Patient has hx of paroxysmal AFib, arthritis, diabetes, pacemaker placement, morbid obesity, Anxiety and Depression. RAYON CONER enters room to meet with patient, present in room is patient's daughter Mary Ann. Patient presents as A/Ox4 but presents and fatigued and with preference for Mary Ann to communicate on behalf of patient. Patient resides with daughter in a duplex in [place], it is reported that duplex is not ADA compliant. Daughter reports that she is patient's hired caregiver through the [facility], patient has 158 caregiver hours a month. Patient's RAS supportive employment case manager through [employer] is Kendy Stevenson (Ph. # [phone]). It is reported that in the last month patient has been bed bound and expressing an increase in pain in her knee, not eating or eating very little and drinking very little fluids. Patient's daughter endorses concern for patient's safety as she is at least a 2 person assist. Patient has a hospital bed, FWW, seated FWW, shower bench, bedside commode and it is reported that the daughter just obtained a transfer lift chair. Daughter endorses concern that patient's FWWs do not fit through their doorways. It is reported that patient has another daughter, a son that are able to come on occasion to support patient. PT evaluates patient and recommends SNF rehab. Patient and daughter endorse preference for SNF rehab, it is reported that they cannot pay privately. RAYON CONER explains Medicare requirements for SNF rehab coverage. Daughter endorses concern if patient goes home. It is reported that they are open to any SNF rehab with the exception of [facility]. Patient and daughter endorses computer terminal operator goal for patient to reside at home. [facility] referral was placed by PCP office on 09/15/24 and services just started the other day. [facility] requesting updates on patient's plan of care but endorses concerns for their ability to serve patient at home. RAYON CONER calls patient's RAS supportive employment case manager Kendy regarding patient's presentation to the ED and patient's need for a new assessment. Kendy requests updates regarding patient's disposition and plan of care. Patient continues to be medically evaluated in ED, ED provider consulting with Hospitalist, awaiting updated labs. Plan: pending OBS admission, plan A: SNF rehab, plan B: increase in care at home, new RAS assessment and f/u with [facility] if appropriate. JONAH Hill Discharge Planning/Care Management CM Discharge Assessment Start: 09/29/24 19:15 Freq: Status: Active Protocol: Document 09/30/24 15:35 LN (Rec: 09/30/24 15:43 LN [id number]) Discharge Planning Assessment Assigned Engine Room Helper JONAH Gr DPOA/Assigned Designee Name Daughter/ Mary Ann Hays Contact Information [phone] Advance Directives? No Advance Directives on File No History Provided By Patient,Family Member,Medical Record Has Patient been admitted in last 30 No days? Prior Living Arrangements Apartment/Condo Household Members children Type of transporation used prior to Relies on Others admit Independent with ADL's No Is patient alert and oriented? Yes Needs Assistance With Bathing,Grooming,Meal Prep, Toileting,Managing Medications ,Home Chores / Shopping Caregiver for Another No DME Already Rented / Owned Bath Bench,Hospital Bed,FWW / Walker,Bedside Commode,Other Name of Agency [employer] Contact Phone [phone] Hours / Month 158 Comment Patient's RAS supportive employment case manager is Kendy Stevenson with [employer]. Patient's caregiver is her daughter who resides with patient. Patient/Family Preference Long Term Facility Transportation Arrangement Patient had recent initial referral with [facility] from patient's PCP, HH RN started care with patient on 09/29/24 and it was recommended patient come to ED. Medicare Choice List Provided Yes Medicare choice list reviewed on patient,family electronic tablet with SNF/HH Preference Any SNF with the exception of [facility].
--- NOTE | 2024-09-30 16:20 | PC.NURSE ---
Patient repositioned to right side. New incontinent pads placed and a new purewick was placed. patient was left with the bed in a low position, both side rails up, call light within reach. daughter is at bedside.
[2024-09-30 17:03] LABS: Add Manual Diff / Slide Review NO; Basophils Absolute Auto 100 /uL (0-100); Basophils Percent Auto 0.5 % (0-2); Eosinophils Absolute Auto 100 /uL (0-450); Eosinophils Percent Auto 0.8 % (2-4); Hematocrit 29.2 % (36-46); Hemoglobin 9.2 g/dL (12.0-16.0); Lymphocytes Absolute Auto 2100 /uL (1100-4500); Lymphocytes Percent Auto 17.1 % (25-40); Mean Corpuscular HGB Conc 31.4 % (30-36); Mean Corpuscular Hemoglobin 24.7 PG (26-34); Mean Corpuscular Volume 78.6 fL (80-100); Monocytes Absolute Auto 800 /uL (0-900); Monocytes Percent Auto 6.6 % (3-14); Neutrophils Absolute Auto 9000 /uL (1500-7000); Platelet Count 337 X10^3/uL (150-400); Red Blood Cell Count 3.72 X10^6/uL (4.0-5.2); Red Cell Distribution Width 16.7 % (11.6-14.8)
[2024-09-30] MEDS: METFORMIN HCL 500 MG TABLET PO (17:27)
[2024-09-30] MEDS: ATORVASTATIN 20 MG TABLET 40 MG PO (21:19)
[2024-10-01] VITALS (12 sets, daily range): BP systolic 118–126; BP diastolic 64–77; PULSE 85–96; RESP 14–18; TEMP 36.5–36.7; O2SAT 87–97; BMI 43.5
[2024-10-01] MEDS: RIVAROXABAN 10 MG TABLET 20 MG PO (08:18)
[2024-10-01] MEDS: cephALEXin 250 MG CAPSULE 500 MG PO ×3 (08:18→20:57)
[2024-10-01] MEDS: METFORMIN HCL 500 MG TABLET PO ×2 (08:19→17:21)
[2024-10-01] MEDS: OXYBUTYNIN 5 MG ER TAB 15 MG PO (08:19)
[2024-10-01] MEDS: METOPROLOL ER 25 MG TABLET PO (08:19)
[2024-10-01] MEDS: FLECAINIDE 100 MG TABLET 50 MG PO ×2 (08:19→20:57)
--- NOTE | 2024-10-01 09:03 | PC.NURSE ---
at 0800 a bed bath was given to the patient. Pillow cases were placed under the breast to help with moisture. A new purewick was placed. Patient left in a sitting position in the bed with breakfast tray provided. warm blankets and call light were placed and left in reach.
[2024-10-01] MEDS: OXYCODONE/ACETAMINOPHEN 5/325 TABLET 2 TAB PO ×2 (09:44→17:24)
--- NOTE | 2024-10-01 11:50 | PT.IPTN ---
Physical Therapy Treatment Note M2 PT-IP Current Condition Start: 09/30/24 12:29 Freq: Status: Active Protocol: Document 09/30/24 09:40 AB (Rec: 09/30/24 12:48 AB [id number]) Physical Therapy Current Condition Current Condition Evaluation Date 09/30/24 Treatment Diagnosis Failure to Thrive; difficulty in walking Onset Date 09/29/24 M3 PT-IP Subjective Start: 09/30/24 12:29 Freq: Status: Active Protocol: Document 10/01/24 12:38 TS (Rec: 10/01/24 12:46 TS [id number]) Subjective Physical Therapy Visit Type Type Treatment Note Visit Start Time 11:50 Visit Stop Time 11:37 Number of MEDIATION COMMISSIONER Visits 1 Physical Therapy Visit Comments Patient Comments Pt found resting in bed, reports high amounts of pain, she is agreeable to PT. Therapy Pain Assessment Pain When Pain Assessed At Rest Pain Present Pain Present Pain Reported M4 PT-IP Mobility and Gait Start: 09/30/24 12:29 Freq: Status: Active Protocol: Document 10/01/24 12:38 TS (Rec: 10/01/24 12:46 TS [id number]) PT-Bed Mobility Assessment Rolling Level of Assist Maximal Assistance,2 Person Assistance Supine to Sit Supine to Sit Total Assistance,2 Person Assistance,Head of Bed Elevated,Bedrails Sit to Supine Sit to Supine Total Assistance Scooting Scooting to Edge of Bed Dependent Scooting Up and Down in Bed Dependent PT-Transfer Assessment Comments Mobility Comments Pt logrolls in bed x3 MaxA x3. Supine to sit MaxA x3, pt calls out in pain. She sits EOB CGA/SBA, pt is fearful of falling. Attempted STS but pt could not get lift from bed MaxA x3. She scoots along EOB MaxA x3. Sit to supine into bed total assist x3. Pt was left in bed, all needs met. PT-Balance Assessment Sitting Balance and Reactions Static Sitting Balance Ability Fair Dynamic Sitting Balance Ability Poor M5 PT-IP Objective Assessments Start: 09/30/24 12:29 Freq: Status: Active Protocol: Document 09/30/24 09:40 AB (Rec: 09/30/24 12:48 AB [id number]) Orientation Orientation/Cognition Level of Alertness Confusional State Orientation Name,Place,Situation Safety Awareness Decreased Safety Awareness Memory Description Short Term Impaired,Proof Sorter Impaired Gross Range of Motion Lower Extremity ROM Impairments pt with c/o increase B knee pain even with slight movements and with increase guarding affecting ROM testing Strength Lower Extremity Strength Assessment Bilaterally Impaired Hip 3+/5 Knee 2+/5 Ankle 2+/5 M6 PT-IP Treatment Start: 09/30/24 12:29 Freq: Status: Active Protocol: Document 10/01/24 12:38 TS (Rec: 10/01/24 12:46 TS [id number]) Physical Therapy Treatment Education Education Provided Safety M7 PT-IP Assessment and Plan Start: 09/30/24 12:29 Freq: Status: Active Protocol: Document 10/01/24 12:38 TS (Rec: 10/01/24 12:46 TS [id number]) PT Summary Assessment and Plan Potential Rehabilitation Potential Fair Summary Impairments Pain,ROM,Strength,Balance, Coordination,Sensation,Tone, Cognition,Bed Mobility, Transfers,Gait,Activity Tolerance Assessment Summary Belen is making slow progress with her mobility. She requires MaxA x3 to total assist x3 for all moblity. Attempted to stand today but pt is unable to get lift from the bed with x3 PA. PT continues to recommend SNF. Goals Bed Mobility Goal Moderate Assistance Transfer Goal Moderate Assistance Gait Goal Moderate Assistance Gait Distance 15 Other Goals improve bed mobility, transfers, ambulation using FWW 50 ft CGA Days to Meet Goals 10 Frequency of Treatment Frequency Of Treatment Once a Day Treatment Plan Physical Therapy Treatment Plan Bed Mobility Training,Transfer Training,Gait Training, Therapeutic Exercise,Balance Retraining,Discharge Planning, Hot or Cold Pack,Neuromuscular Re-ed,Coordination Retraining ,Manual Therapy Recommendations To Nursing Amount of Assist Needed Mechanical Lift Discharge Recommendations PT Discharge Recommendations SNF Rehab Transportation Needs at Discharge Wheelchair/Cabulance,Stretcher /Ambulance
--- NOTE | 2024-10-01 14:09 | PC.NURSE ---
Patient was repositioned on her left side with pillows on her right side. Patient tolerated the procedure and it went well.
--- NOTE | 2024-10-01 16:38 | PC.NURSE ---
Reassessed; no change. Pressure sores (stage II and III) noted on bottom and right side. Bandages redressed. Back washed as well as bed bath provided by CNAs
--- NOTE | 2024-10-01 16:38 | PM.HP.1 ---
History of Present Illness History of Present Illness Date Patient Seen: 10/01/24 Chief complaint: Failure to thrive Narrative: This is a 69-year-old female with a history of PAF, arthritis, prediabetes, pacemaker, and morbid obesity he was brought to the emergency department for inability to care for self. The patient has been bed-bound due to bilateral knee pain for several months. She lives with her daughter. She had a telehealth visit on September 10 and at that point explained the situation. The patient and daughter have requested inpatient rehab, home health was started. The home health current nurse came out and apparently noted that the patient was developing bedsores and was relatively severe pain. 911 was called the patient was brought to the ED. she has been in the ED for the past 18 hours and needs higher level of support and discharge planning. In speaking with her daughter who lives with her, she has had progressive deterioration since having a staph infection in her left leg. She has had a decline in function and essentially has become weaker and then bed-bound for the last month at least. She was eating less. She has arm weakness and bilateral rotator cuff tears that make it hard for her to move herself. She was become more withdrawn as well. No nausea, but a very poor appetite. She was not had a bowel movement for over a week. [facility] Medical History Cellulitis Essential hypertension Paroxysmal A-fib Dyslipidemia Diabetes mellitus type 2, controlled, without complications Normally functioning cardiac pacemaker present Fatty liver disease, nonalcoholic Skin tag (~1969) Osteoarthritis Depression (~1999) Anxiety (~1999) Carpal tunnel syndrome Cataracts, bilateral (~1999) Urinary incontinence, urge (~2011) Borderline glaucoma Chronic left shoulder pain Prediabetes CAD (coronary artery disease) Systolic heart failure (~2019) Surgical History Anesthesia History of cataract removal with insertion of prosthetic lens (~2015) Family History Father Cancer Mother No problems noted. Brother Alcoholism Schizophrenia Mental health problem Family/Other Hypertension Paranoia Mental health problem Social History household members: children Smoking Status: Never smoker Meds Home Medications and Allergies Home Medications Medication Instructions Recorded Confirmed Type latanoprost 0.005 % eye drops drp EYE-BOTH BEDTIME 07/10/22 09/02/24 History Disabled Parking Permit #1 ea 07/11/23 09/02/24 Rx BD Purewick Female External #1 ea 08/20/23 09/02/24 Rx Catheter System fluoxetine 40 mg capsule 40 mg PO DAILY #90 caps 11/13/23 09/30/24 Rx metformin 500 mg tablet 500 mg PO BID #180 tabs 11/13/23 09/30/24 Rx mirtazapine 45 mg tablet 45 mg PO BEDTIME #90 tabs 11/13/23 09/30/24 Rx rivaroxaban 20 mg tablet (Xarelto) 20 mg PO DAILY 11/13/23 09/30/24 History atorvastatin 40 mg tablet 40 mg PO BEDTIME #90 tabs 11/15/23 09/30/24 Rx torsemide 20 mg tablet 20 mg PO DAILY #90 tabs 11/15/23 09/02/24 Rx blood sugar diagnostic (Blood #100 ea 11/21/23 09/02/24 Rx Glucose Test strips) blood-glucose meter #1 ea 11/21/23 09/02/24 Rx lancets (Fingerstix Lancets) #100 ea 11/21/23 09/02/24 Rx flecainide 50 mg tablet 50 mg PO BID 01/09/24 09/30/24 History metoprolol succinate 25 mg 25 mg PO DAILY 01/09/24 09/30/24 History tablet,extended release 24 hr gabapentin 300 mg capsule 300 mg PO .COMPLEX #270 caps 05/12/24 09/30/24 Rx oxybutynin chloride 15 mg 15 mg PO DAILY #90 tabs 05/12/24 09/30/24 Rx tablet,extended release 24 hr semaglutide 1 mg/dose (4 mg/3 mL) 1 mg (0.75 mL) SUBCUT QWEEK #3 mL 08/11/24 09/02/24 Rx subcutaneous pen injector (Ozempic) oxycodone-acetaminophen 7.5 mg-325 1 tab PO Q4-6H PRN pain #20 tabs 09/10/24 09/30/24 Rx mg tablet aspirin 81 mg tablet 81 mg PO DAILY 09/30/24 09/30/24 History Allergies Allergy/AdvReac Type Severity Reaction Status Date / Time No Known Drug Allergies Allergy Verified 09/29/24 18:00 Review of Systems Review of Systems Narrative: All else reviewed and otherwise unremarkable except as noted in the history and physical. Exam Vital Signs (past 8 hours): - 10/01/24 09:05 Temperature 98.0 F Pulse Rate 95 H Respiratory Rate 14 Blood Pressure [Left Wrist] 125/70 Pulse Oximetry 93 Oxygen Delivery Method Room Air Oxygen Delivery Method Room Air Narrative Exam Narrative: NAD, alert and oriented, fluent speech, calm. Flat affect and withdrawn. Normocephalic skull, EOMI, anicteric sclera, symmetric pupils. Oropharynx unremarkable, no droop. Neck supple, midline trachea, no adenopathy. Lungs clear, normal rate and effort. Heart regular, no murmur gallop or rub. Abdomen is soft, non distended and non tender. Extremities are free of edema. Skin is free of rash or lesions. Joints are not swollen or deformed. Judgment appears to be normal. Objective ECG Impression: Atrial-sensed ventricular-paced rhythm Imaging Multiple studies:: Radiologist's impression: Chest x-ray: No acute pulmonary process. Knee x-ray: MPRESSION: Tricompartmental left knee osteoarthrosis, most severe at the medial femorotibial compartment. Moderate joint effusion. Knee x-ray: 1. No acute osseous abnormality. If there is continued clinical concern or persistent symptoms, repeat radiographs or cross-sectional imaging (e.g. CT, MRI) may be helpful for further evaluation. 2. Severe tricompartmental osteoarthrosis. 3. Moderate joint effusion with suspected intra-articular loose body. Labs 09/30/24 16:55 09/30/24 09:04 Labs: Laboratory Results - last 24 hr 09/30/24 16:55 WBC 12.0 H RBC 3.72 L Hgb 9.2 L Hct 29.2 L MCV 78.6 L MCH 24.7 L MCHC 31.4 RDW 16.7 H Plt Count 337 Neut % (Auto) 75.0 Lymph % (Auto) 17.1 L [place] % (Auto) 6.6 Eos % (Auto) 0.8 L Baso % (Auto) 0.5 Neut # (Auto) 9000 H Lymph # (Auto) 2100 [place] # (Auto) 800 Eos # (Auto) 100 Baso # (Auto) 100 Assessment & Plan Assessment & Plan narrative: 1. Bed-bound, present on admission and active. 2. Wound concerns, present on admission and active. 3. Morbid obesity, present on admission and active. 4. Bilateral knee pain secondary to OA, present on admission and active. 5. Atrial fibrillation, chronic and stable. 6. Pacemaker implant, chronic and stable. Plan: -wound care -pain medications -discharge planning -therapies evaluations Anticipate 1 midnight of hospital services, observation status as supported. Full code. JANETH is 10/02. Time-Based Coding :: 35 min spent with patient and on the chart (including review of chart, obtaining history, exam, reviewing outside data, placing orders, documenting exam and treatment plan, and counseling patient) on 10/01. Quality MIPS - Admit I confirm the patient?s Advance Care Plan is present, Code status is documented, Surrogate decision maker is in patient?s record [If Yes, STOP here]: Yes MIPS - Meds 'Current medications' to include all prescriptions, [id number] products, herbals, cannabis/cannabidiol products, and vitamin/mineral/dietary (nutritional) supplements. I have utilized all available resources to obtain, update, or review the patient?s current medications. [If Yes, STOP here]: Yes
--- NOTE | 2024-10-01 16:43 | PC.NURSE ---
Reasses no change.
--- NOTE | 2024-10-01 16:51 | CM.SWNOTE ---
ED DRUG SAFETY SCIENTIST DCP Note: Reviewed chart and discussed pt with ED staff. Per ED Provider, after reassessment, no admitting dx found at this time. ED DRUG SAFETY SCIENTIST left a voice message with pt's RAS Computer Analyst Supervisor, Kendy Stevenson (Ph. # [phone]), giving an update on pt's status of likely social admit and request for RAS assessment as soon as available. ED DRUG SAFETY SCIENTIST spoke with pt's daughter/caregiver, Mary Ann Hays, and discussed pt's status. Pt's daughter reports a main goal of returning home after SNF Rehab; explains pt was pretty independent as recent as late July and pt still expresses motivation to get back to baseline. It was confirmed by pt's daughter that private pay for SNF Rehab is not an available option at this time. ED DRUG SAFETY SCIENTIST discussed the above with ED Provider who will consult with Hospitalist about admission per 48hour social admit policy. Plan: Pending OBS admission, plan A: SNF rehab, plan B: increase in care at home, new RAS assessment (hopeful for additional caregiving hours, respite, additional support) and follow up with [facility] if appropriate. DASHAWN Boone
[2024-10-01] MEDS: SODIUM CHLORIDE 0.9% 1,000 ML 100 ML IV (19:13)
[2024-10-01] MEDS: ATORVASTATIN 20 MG TABLET 40 MG PO (20:57)
[2024-10-02 06:24] LABS: Add Manual Diff / Slide Review NO; Basophils Absolute Auto 100 /uL (0-100); Basophils Percent Auto 0.7 % (0-2); Eosinophils Absolute Auto 200 /uL (0-450); Eosinophils Percent Auto 1.9 % (2-4); Hematocrit 27.9 % (36-46); Hemoglobin 8.7 g/dL (12.0-16.0); Lymphocytes Absolute Auto 2100 /uL (1100-4500); Mean Corpuscular HGB Conc 31.1 % (30-36); Mean Corpuscular Hemoglobin 24.6 PG (26-34); Mean Corpuscular Volume 79.1 fL (80-100); Monocytes Absolute Auto 600 /uL (0-900); Monocytes Percent Auto 6.9 % (3-14); Neutrophils Absolute Auto 5400 /uL (1500-7000); Neutrophils Percent Auto 65.5 % (50-75); Platelet Count 353 X10^3/uL (150-400); Red Blood Cell Count 3.52 X10^6/uL (4.0-5.2); Red Cell Distribution Width 16.5 % (11.6-14.8); White Blood Cell Count 8.3 X10^3/uL (4.5-11.0)
[2024-10-02 06:35] LABS: BUN Creatinine Ratio 45.2 (6-22); Blood Urea Nitrogen 19 mg/dL (7-17); Calcium 9.4 mg/dL (8.4-10.2); Carbon Dioxide 26 mmol/L (22-32); Chloride 102 mmol/L (98-107); Estimated Glomerular Filt Rate > 60 mL/min (>60); Glucose 92 mg/dL (80-110); HEMOLYSIS < 15 (0-50); Potassium 3.2 mmol/L (3.4-5.1); Sodium 135 mmol/L (137-145)
[2024-10-02] MEDS: OXYCODONE/ACETAMINOPHEN 5/325 TABLET 2 TAB PO ×2 (06:36→13:13)
[2024-10-02 07:00] VITALS: BP 108/72; PULSE 89; RESP 18; TEMP 37.1; O2SAT 96
--- NOTE | 2024-10-02 07:14 | PM.PN.1 ---
Subjective Subjective Interval history: Summary: This is a 69-year-old female with a history of PAF, arthritis, prediabetes, pacemaker, and morbid obesity he was brought to the emergency department for inability to care for self. The patient has been bed-bound due to bilateral knee pain for several months. She lives with her daughter. She had a telehealth visit on September 10 and at that point explained the situation. The patient and daughter have requested inpatient rehab, home health was started. The home health current nurse came out and apparently noted that the patient was developing bedsores and was relatively severe pain. 911 was called the patient was brought to the ED. she has been in the ED for the past 18 hours and needs higher level of support and discharge planning. In speaking with her daughter who lives with her, she has had progressive deterioration since having a staph infection in her left leg. She has had a decline in function and essentially has become weaker and then bed-bound for the last month at least. She was eating less. She has arm weakness and bilateral rotator cuff tears that make it hard for her to move herself. She was become more withdrawn as well. No nausea, but a very poor appetite. She was not had a bowel movement for over a week. S: She is doing well, no nausea or dyspnea overnight. She was having a lot of chronic knee pain which has been ongoing and debilitating for the last month. She was on gabapentin. PT lucila in the ED revealed her to be a 3 person assist. Exam Vital Signs (past 8 hours): Oxygen Delivery Method Room Air Oxygen Flow Rate 0 Narrative Exam Narrative: NAD, alert and oriented. Fluent speech. Lungs are clear, normal rate and effort. Heart is regular, no murmur gallop or rub. Abdomen is soft, non distended. Extremities are free of edema. Her skin is very sensitive to touch really in any spot over the upper and lower legs bilaterally. Objective Labs 10/02/24 05:54 10/02/24 05:54 Labs: Laboratory Results - last 24 hr 10/02/24 05:54 WBC 8.3 RBC 3.52 L Hgb 8.7 L Hct 27.9 L MCV 79.1 L MCH 24.6 L MCHC 31.1 RDW 16.5 H Plt Count 353 Neut % (Auto) 65.5 Lymph % (Auto) 25.0 [place] % (Auto) 6.9 Eos % (Auto) 1.9 L Baso % (Auto) 0.7 Neut # (Auto) 5400 Lymph # (Auto) 2100 [place] # (Auto) 600 Eos # (Auto) 200 Baso # (Auto) 100 Sodium 135 L Potassium 3.2 L Chloride 102 Carbon Dioxide 26 BUN 19 H Creatinine 0.42 L Estimated GFR > 60 BUN/Creatinine Ratio 45.2 H Glucose 92 Calcium 9.4 PFSH Medical History Cellulitis Essential hypertension Paroxysmal A-fib Dyslipidemia Diabetes mellitus type 2, controlled, without complications Normally functioning cardiac pacemaker present Fatty liver disease, nonalcoholic Skin tag (~1969) Osteoarthritis Depression (~1999) Anxiety (~1999) Carpal tunnel syndrome Cataracts, bilateral (~1999) Urinary incontinence, urge (~2011) Borderline glaucoma Chronic left shoulder pain Prediabetes CAD (coronary artery disease) Systolic heart failure (~2019) Surgical History Anesthesia History of cataract removal with insertion of prosthetic lens (~2015) Family History Father Cancer Mother No problems noted. Brother Alcoholism Schizophrenia Mental health problem Family/Other Hypertension Paranoia Mental health problem Social History household members: children Smoking Status: Never smoker Assessment & Plan Assessment & Plan narrative: 1. Bed-bound, present on admission and active. 2. Wound concerns, present on admission and active. 3. Morbid obesity, present on admission and active. 4. Bilateral knee pain secondary to OA, present on admission and active. 5. Atrial fibrillation, chronic and stable. 6. Pacemaker implant, chronic and stable. Plan: -wound care -pain medications -discharge planning -therapies evaluations -resume all usual medications for blood pressure, and anticoagulation. -gabapentin at 100 t.i.d. -trial of lidocaine patches to both knees. -PT eval. Anticipate 1 midnight of hospital services, observation status as supported. Full code. JANETH is 10/02. Time-Based Coding :: [TOTAL MINUTES] spent with patient and on the chart (including review of chart, obtaining history, exam, reviewing outside data, placing orders, documenting exam and treatment plan, and counseling patient) on [DATE].
[2024-10-02] MEDS: POTASSIUM CHLORIDE 20 MEQ TAB 40 MEQ PO ×2 (08:34→15:32)
[2024-10-02] MEDS: ACETAMINOPHEN 325 MG TABLET 650 MG PO (08:35)
[2024-10-02] MEDS: RIVAROXABAN 10 MG TABLET 20 MG PO (08:35)
[2024-10-02 08:36] VITALS: BP 108/58; PULSE 89
[2024-10-02] MEDS: CYCLOBENZAPRINE 10 MG TABLET PO (08:36)
[2024-10-02] MEDS: FLECAINIDE 100 MG TABLET 50 MG PO ×2 (08:36→20:42)
[2024-10-02] MEDS: OXYBUTYNIN 5 MG ER TAB 15 MG PO (08:36)
[2024-10-02] MEDS: METOPROLOL ER 25 MG TABLET PO (08:36)
[2024-10-02] MEDS: cephALEXin 250 MG CAPSULE 500 MG PO ×3 (08:37→20:44)
[2024-10-02] MEDS: METFORMIN HCL 500 MG TABLET PO ×2 (08:37→15:33)
[2024-10-02] MEDS: ASPIRIN EC 81 MG TABLET PO (11:15)
[2024-10-02] MEDS: GABAPENTIN 100 MG CAPSULE PO (11:15)
[2024-10-02] MEDS: FLUoxetine 20 MG CAPSULE 40 MG PO (11:15)
[2024-10-02] MEDS: LIDOCAINE 5% PATCH 1 EACH TOP (11:17)
--- NOTE | 2024-10-02 13:05 | CM.DPC ---
Addendum entered by BENNETT Barrera 10/02/24 15:47: ADD: SW met bedside with pt and two Dtrs while PT/OT attempted to work with pt today. Pt very painful and tearful and needed encouragement and was only able to sit edge of bed for a little while with PT/OT and was not yet able to stand. 3PA currently. SW spoke with pt's DPOA Dtr Mary Ann (she will bring in copy of POA pwk to scan into EMR) and she confirms that she cannot safely manage pt at home currently and SW discussed waiting to confirm from [facility] if they could accept her Medicaid for SNF. Otherwise Dtr agreeable with moving forward with LTC placement (likely at SNF as currently SUE not able to manage her 3PA needs) and discussed the need for [facility] to assign new SW to complete LTC assessment from the hospital. Dtr agreeable and if pt makes progress and less assist needs, then Dtr agreeable with trying for a home plan. ARTEMIO updated Kendy MCGINNIS CM and she will work on transferring pt to [facility] HOspital team eliot for re-assignment to [facility] SW for LTC assessment for SNF. BF Original Note: DCP Cont: Per MD, pt remains stable and trying to determine any medical needs for admission. Per PT, pt 2-3PA and had extreme difficulty with attempting to stand. ARTEMIO spoke to pt's RAS Larry [phone] and she states that pt's current 158 hrs a mo is considered max/time study clerk hours for one RAS CG for the patient, that she might qualify for additional hours but would need another RAS CG besides pt's Dtr. Kenyd cannot complete her home assessment until pt is back home in her environment to determine those increased hours, assessment cannot be done in the hospital for the home setting. Kendy confirms for coverage for NURSING HOME or SNF at d/c from the hospital, she would have to transfer pt's RAS/Home plan to [facility] to be re-assigned to a steel pourer helper facility corrections caseworker. Kendy does not have access to pt's Medicaid benefits/eligibility to determine if pt has any SNF coverage under her Medicaid. Secure emailed Kendy pt's clinicals to review towards likely need of assessment for increased care to email: [email or web address] SW called [facility] and confirmed they cannot consider patient since she is OBS Status and they bill Medicare like a SNF and therefore pt would need to have her Inpt Status for 3 midnights first. SW made referral to Arti at [facility] requesting review to see if she can see any SNF benefits through pt's Medicaid. Spoke to Jenna at [facility] and she confirms their RN arrived at pt's house for SOC and was in so much pain that they could not even touch or move the pt and felt she needed medical assessment and they had to close out the referral. They are willing to follow and review to determine if they feel they can safely manage her care needs at home but need new referral and orders. Faxed clinicals to review and F2F completed. Plan: SW to follow for further PT/OT recommendations to determine if pt making progress towards baseline of just 1PA vs need for RAS Larry to transfer to [facility] for re-assignment for LTC placement. SW to follow for [facility] review to determine if maybe pt has some SNF coverage under her Medicaid. BENNETT Barrera
[2024-10-02 13:44] VITALS: BMI 43.5
--- NOTE | 2024-10-02 14:28 | PT.IPTN ---
Physical Therapy Treatment Note M2 PT-IP Current Condition Start: 09/30/24 12:29 Freq: Status: Active Protocol: Document 09/30/24 09:40 AB (Rec: 09/30/24 12:48 AB [id number]) Physical Therapy Current Condition Current Condition Evaluation Date 09/30/24 Treatment Diagnosis Failure to Thrive; difficulty in walking Onset Date 09/29/24 M3 PT-IP Subjective Start: 09/30/24 12:29 Freq: Status: Active Protocol: Document 10/02/24 16:24 TS (Rec: 10/02/24 16:37 TS [id number]) Subjective Physical Therapy Visit Type Type Treatment Note Visit Start Time 14:28 Visit Stop Time 15:16 Number of HEADING PINNER Visits 2 Physical Therapy Visit Comments Patient Comments Pt found resting in bed, fearful to move, she is agreeable to PT. Therapy Pain Assessment Pain When Pain Assessed At Rest Pain Present Pain Present Pain Reported M4 PT-IP Mobility and Gait Start: 09/30/24 12:29 Freq: Status: Active Protocol: Document 10/02/24 16:24 TS (Rec: 10/02/24 16:37 TS [id number]) PT-Bed Mobility Assessment Rolling Level of Assist Maximal Assistance,2 Person Assistance Sit to Supine Sit to Supine Total Assistance Scooting Scooting to Edge of Bed Dependent Scooting Up and Down in Bed Dependent PT-Transfer Assessment Comments Mobility Comments Pt logrolls in bed x3 with MaxA x2. Supine to sit total assist x2, pt calls out in pain. Pt sits EOB with rapid breathing and fear of falling. Attempted STS x2 with FWW and MaxA x3, pt unable to get lift. Sit to supine total assist x3. Pt was left in bed, all needs met. PT-Balance Assessment Sitting Balance and Reactions Static Sitting Balance Ability Fair Dynamic Sitting Balance Ability Poor Comments Other Balance Tests/Deviations/Treatment Pt has fear of falling at EOB, : requires CGA to Sasha at times . M5 PT-IP Objective Assessments Start: 09/30/24 12:29 Freq: Status: Active Protocol: Document 09/30/24 09:40 AB (Rec: 09/30/24 12:48 AB [id number]) Orientation Orientation/Cognition Level of Alertness Confusional State Orientation Name,Place,Situation Safety Awareness Decreased Safety Awareness Memory Description Short Term Impaired,Prison Impaired Gross Range of Motion Lower Extremity ROM Impairments pt with c/o increase B knee pain even with slight movements and with increase guarding affecting ROM testing Strength Lower Extremity Strength Assessment Bilaterally Impaired Hip 3+/5 Knee 2+/5 Ankle 2+/5 M6 PT-IP Treatment Start: 09/30/24 12:29 Freq: Status: Active Protocol: Document 10/02/24 16:24 TS (Rec: 10/02/24 16:37 TS [id number]) Physical Therapy Treatment Exercises Exercises Quad Sets Education Education Provided Safety M7 PT-IP Assessment and Plan Start: 09/30/24 12:29 Freq: Status: Active Protocol: Document 10/02/24 16:24 TS (Rec: 10/02/24 16:37 TS [id number]) PT Summary Assessment and Plan Potential Rehabilitation Potential Fair Summary Impairments Pain,ROM,Strength,Balance, Coordination,Sensation,Tone, Cognition,Bed Mobility, Transfers,Gait,Activity Tolerance Progress Towards Goals Slow Progress due to Pain,Slow Progress due to Activity Tolerance,Slow Progress - Other Assessment Summary Pt continues to make slow progress with her mobility. She requires MaxA x3 to total assist for all mobility. Attempted STS from the bed but unable to get lift. PT continues to recommend SNF vs LTC. Goals Bed Mobility Goal Moderate Assistance Transfer Goal Moderate Assistance Gait Goal Moderate Assistance Gait Distance 15 Other Goals improve bed mobility, transfers, ambulation using FWW 50 ft CGA Days to Meet Goals 10 Frequency of Treatment Frequency Of Treatment Once a Day Treatment Plan Physical Therapy Treatment Plan Bed Mobility Training,Transfer Training,Gait Training, Therapeutic Exercise,Balance Retraining,Discharge Planning, Hot or Cold Pack,Neuromuscular Re-ed,Coordination Retraining ,Manual Therapy Recommendations To Nursing Amount of Assist Needed Mechanical Lift Discharge Recommendations PT Discharge Recommendations SNF Rehab Other Discharge Recommendations LTC Transportation Needs at Discharge Wheelchair/Cabulance,Stretcher /Ambulance
--- NOTE | 2024-10-02 15:16 | DIET.CONS ---
Dietary Consultation Note Admission Date: 10/01/2024 17:17 Assessment: 69 y F presented for inability to care for self. RD screened for eating problem and low MNA. PMH of pre-DM. Met with pt at bedside. Reports significant decrease in PO intakes over last 2 months r/t to lack of appetite, eating a few small bites of what daughter/family provided her at meals. Unable to provide further diet recall. Reports improving appetite now. Nutrition focused physical exam performed- mild muscle loss temples Ht: 167.64 cm Wt: 122.47 kg BMI: 43.5 UBW: 140.6 kg on 08/10/24 (-13% weight loss within 2 months, severe), pt reports UBW of 143 kg Last BM: 09/26/24 (10/01/24 18:42) MNA: 8 Andrey Score: 14 Diet: 10/01/24 Dinner General (Regular) Diet Diet Modifications: Nutrition Percent Meal Consumed 25% 09/30/24 19:32 Labs: RBC 3.52 X10^6/uL (4.0-5.2) L 10/02/24 05:54 Hgb 8.7 g/dL (12.0-16.0) L 10/02/24 05:54 Hct 27.9 % (36-46) L 10/02/24 05:54 Creatinine 0.42 mg/dL (0.52-1.04) L 10/02/24 05:54 Lactate 1.4 mmol/L (0.7-2.1) 09/29/24 17:55 NT-Pro-B Natriuret Pep 1280 pg/mL (<125) H 09/30/24 09:04 Nutrition Diagnosis: Severe acute protein calorie malnutrition r/t lack of appetite, bed-bound as evidenced by 13% weight loss within 2 months (severe), <75% estimated energy needs for 2 months, mild muscle loss temporalis, inability to care for self Interventions: 1. ONS max protein 1x/d as appetite continues to improve back to normal (75% or higher PO intakes) EER: [id number] kcals (15 kcal/kg per BMI compared with MSJx1.25) 90 g protein (1.25gkg adjusted IBW) Monitoring/Evaluations: PO intakes Electronically Signed by: Deb Orellana 10/02/24 15:16 Clinical Diet[address] [id number]
--- NOTE | 2024-10-02 15:18 | PC.NURSE ---
small allevyn dressing placed to left side buttock ,other allevyns in place to bottom
[2024-10-02] MEDS: SODIUM CHLORIDE 0.9% 1,000 ML 100 ML IV (15:35)
--- NOTE | 2024-10-02 15:43 | OT.IP.EVAL ---
Past Medical History (Last Reviewed 10/01/24 @ 16:42 by Da Hearn MD) Anxiety (~1999) Borderline glaucoma CAD (coronary artery disease) Carpal tunnel syndrome Cataracts, bilateral (~1999) Cellulitis Chronic left shoulder pain Depression (~1999) Diabetes mellitus type 2, controlled, without complications Dyslipidemia Essential hypertension Fatty liver disease, nonalcoholic Normally functioning cardiac pacemaker present Osteoarthritis Paroxysmal A-fib Prediabetes Skin tag (~1969) Systolic heart failure (~2019) Urinary incontinence, urge (~2011) Surgical History (Last Reviewed 10/01/24 @ 16:42 by Da Hearn MD) Anesthesia History of cataract removal with insertion of prosthetic lens (~2015) Occupational Therapy Inpatient Evaluation/Re-Eval M1 PT/OT-IP Prior Functional Status Start: 09/30/24 12:29 Freq: Status: Active Protocol: Document 10/02/24 15:26 [facility] (Rec: 10/02/24 15:38 [facility] [id number]) Medical Review Prior Functional Status Medical History Reviewed Yes Communication able to make needs known; with slight confusion Mobility and Gait per EMR: pt has been bed bound for ~ 2 months. Clarified with pt and pt confirmed that she has just been in bed but unsure for how long. pt stated that her daughter assists her with everything. pt stated that she has a purewick system at home that she uses for toileting and daughter assists her with hygiene care. pt stated that due to her B knee pain, she has not been getting out of the bed. prior to being bed bound, pt was ambulating using a FWW Activities of Daily Living and IADL's Pt's family assist with all ADL needs for the past month. Prior Functional Level (Other details) Pt's daughter states prior at home takes 3 person to assist to stand. Social History Household Members children Living Arrangements Apartment/Condo Number of Floors (Floors) One Floor Number of Stairs To Enter/Railing? no steps to enter Home Environment Standard Height Toilet Home Equipment Front Wheel Walker,Hand Held Shower,Hospital Bed Additional Social History Comment pt lives with her daughter M2 OT-IP Current Condition Start: 10/02/24 15:25 Freq: Status: Active Protocol: Document 10/02/24 15:26 [facility] (Rec: 10/02/24 15:38 [facility] [id number]) Occupational Therapy Current Condition Current Condition Evaluation Date 10/02/24 Treatment Diagnosis Failure to Thrive, generalized weakness Diagnosis Onset Date 10/01/24 M3 OT- IP Subjective and Pain Start: 10/02/24 15:25 Freq: Status: Active Protocol: Document 10/02/24 15:26 [facility] (Rec: 10/02/24 15:38 [facility] [id number]) OT- Subjective Occupational Therapy Visit Type Type Initial Evaluation Visit Start Time 14:25 Visit Stop Time 15:15 Occupational Therapy Visit Comments Patient Comments Pt needing lots of encouragement to participate, pt appears to get very anxious and needing cues to slow down her breathing as well. OT Pain Assessment Pain When Pain Assessed At Rest Pain Present Pain Present Pain Reported Location Bilateral Knee Pain Behaviors Calling Out,Crying,Facial Grimacing M4 OT- IP ADL's Start: 10/02/24 15:25 Freq: Status: Active Protocol: Document 10/02/24 15:26 [facility] (Rec: 10/02/24 15:38 [facility] [id number]) OT [id number] Comments OT Self-Feeding Comments Pt's daughter states has been feeding her. OT ADL-Grooming Comments OT Grooming Comments Pt able to wash the right side of her face after set-up. OT ADL-Oral Care Comments Oral Care Comments Not performed. OT ADL-Dressing General Eval Lower Body Dressing Ability Total Assistance OT ADL-Toileting General Evaluation Toileting Ability Total Assistance Comments OT Toileting Comments Assist for brief change TotalA x2. OT ADL-Bathing Bathing Type Bathing Type Sponge Bath Comments OT Bathing Comments Sponge bath more appropriate at this time. M5 OT- IP IADL's Start: 10/02/24 15:25 Freq: Status: Active Protocol: Document 10/02/24 15:26 [facility] (Rec: 10/02/24 15:38 [facility] [id number]) OT-Instrumental Activities of Daily Living Home Safety Awareness Ability to Problem Solve Emergency Unable to Problem Solve Situations Home Safety Comments Pt is dependent on her family to assist for all her needs. Medication Management Medication Management Caregiver Administers Money Management Money Management Caregiver Provides Assistance Meal Preparation Meal Preparation Caregiver Provides Assist Radiology Tech Radiology Tech Caregiver Provides Assist M6 OT- IP Functional Cognition Start: 10/02/24 15:25 Freq: Status: Active Protocol: Document 10/02/24 15:26 [facility] (Rec: 10/02/24 15:38 [facility] [id number]) Cognitive Factors Limiting Selfcare Function Cognitive Ability Level of Alertness Alert Patient Orientation Name Ability to Follow Commands Able to Follow One Step Commands with Increased Time, Able to Follow One Step Commands with Repetition Cognitive Comments Cognitive Assessment Comments Pt needing concrete vc to follow, encouragement, and reassurance when working with pt. OT- Vision and Hearing OT- Vision Assessment Vision Assessment Comments Pt having her eyes closed and needing cues to open her eyes. M7 OT- IP Mobility and Balance Start: 10/02/24 15:25 Freq: Status: Active Protocol: Document 10/02/24 15:26 [facility] (Rec: 10/02/24 15:38 [facility] [id number]) OT- Bed Mobility Assessment Supine to Sit Supine to Sit Assist Total Assistance,Bedrails Sit to Supine Sit to Supine Assist Total Assistance,2 Person Assistance OT-Transfer Assessment Sit to and From Stand Sit to and from Stand Total Assistance,1 Person Assistance,2 Person Assistance Comments Mobility Comments Pt needing assist of the bed and MAX AX 2 to assist to roll . Total assist and heavy use of the pad to sit to the edge of the bed. Pt from CGA to MAX AX1 for sitting balance. Pt tending to lean to the right . Attempted to stand and needing TOTAL A x4 and not able to stand all the way up. Pt needing the tj lift to help positioning pt and get back into bed. OT- Balance Assessment Sitting Balance and Reactions Static Sitting Balance Ability Poor Dynamic Sitting Balance Ability Poor Standing Balance and Reactions Static Standing Balance Ability Poor M8 OT- IP Objective Assessments Start: 10/02/24 15:25 Freq: Status: Active Protocol: Document 10/02/24 15:26 [facility] (Rec: 10/02/24 15:38 [facility] [id number]) OT Gross Range of Motion Upper Extremity Range of Motion Assessment Within Functional Limits ROM Impairments WFL in supine. OT Strength Upper Extremity Strength Assessment Bilaterally Impaired Shoulder 3- Elbow 3+ Forearm 3+ Wrist 4- Hand 4- M9 OT- IP Assessment and Plan Start: 10/02/24 15:25 Freq: Status: Active Protocol: Document 10/02/24 15:26 [facility] (Rec: 10/02/24 15:38 [facility] [id number]) OT Summary Assessment and Plan Potential Rehabilitation Potential Fair Analytic Complexity at Evaluation MOD Pt is MOD complexity and main barriers are pain, appears anxious when moving and needing concrete cues to follow in addition to encouragement. Pt able to try to participate in OT eval but needing Total A x2-4 for mobility needs at this time. Pt would benefit from possible trial of prison to try to improve mobility needs to help prevent from further skin issues and to help maximize the level of independence for pt for ADL needs- such as eating, grooming, and UB dressing needs. Otherwise pt will benefit from LTC.
[2024-10-02 19:00] VITALS: BP 108/69; PULSE 84; RESP 18; TEMP 36.7; O2SAT 94
[2024-10-02] MEDS: ATORVASTATIN 20 MG TABLET 40 MG PO (20:44)
[2024-10-02] MEDS: MIRTAZAPINE 15 MG TABLET 45 MG PO (20:44)
[2024-10-03] MEDS: SODIUM CHLORIDE 0.9% 1,000 ML 100 ML IV (01:01)
[2024-10-03] MEDS: OXYCODONE/ACETAMINOPHEN 5/325 TABLET 2 TAB PO ×3 (03:42→14:56)
[2024-10-03 07:30] LABS: BUN Creatinine Ratio 38.1 (6-22); Blood Urea Nitrogen 16 mg/dL (7-17); Calcium 8.9 mg/dL (8.4-10.2); Carbon Dioxide 24 mmol/L (22-32); Chloride 108 mmol/L (98-107); Estimated Glomerular Filt Rate > 60 mL/min (>60); Glucose 95 mg/dL (80-110); HEMOLYSIS < 15 (0-50); Sodium 137 mmol/L (137-145)
[2024-10-03 08:00] VITALS: BP 105/65; PULSE 87; RESP 17; TEMP 37; O2SAT 96
[2024-10-03] MEDS: ASPIRIN EC 81 MG TABLET PO (08:23)
[2024-10-03] MEDS: METFORMIN HCL 500 MG TABLET PO (08:23)
[2024-10-03] MEDS: FLECAINIDE 100 MG TABLET 50 MG PO (08:24)
[2024-10-03] MEDS: FLUoxetine 20 MG CAPSULE 40 MG PO (08:26)
[2024-10-03] MEDS: LIDOCAINE 5% PATCH 1 EACH TOP (08:27)
[2024-10-03] MEDS: GABAPENTIN 100 MG CAPSULE PO ×2 (08:27→14:56)
[2024-10-03 08:28] VITALS: BP 140/86
[2024-10-03] MEDS: METOPROLOL ER 25 MG TABLET PO (08:28)
[2024-10-03] MEDS: OXYBUTYNIN 5 MG ER TAB 15 MG PO (08:29)
[2024-10-03] MEDS: RIVAROXABAN 10 MG TABLET 20 MG PO (08:30)
[2024-10-03] MEDS: CYCLOBENZAPRINE 10 MG TABLET PO (08:31)
[2024-10-03] MEDS: cephALEXin 250 MG CAPSULE 500 MG PO (10:43)
--- NOTE | 2024-10-03 10:45 | P.DS_ITS ---
History of Present Illness History of Present Illness Chief complaint: Failure to thrive Narrative: This is a 69-year-old female with a history of PAF, arthritis, prediabetes, pacemaker, and morbid obesity he was brought to the emergency department for inability to care for self. The patient has been bed-bound due to bilateral knee pain for several months. She lives with her daughter. She had a telehealth visit on September 10 and at that point explained the situation. The patient and daughter have requested inpatient rehab, home health was started. The home health current nurse came out and apparently noted that the patient was developing bedsores and was relatively severe pain. 911 was called the patient was brought to the ED. she has been in the ED for the past 18 hours and needs higher level of support and discharge planning. In speaking with her daughter who lives with her, she has had progressive deterioration since having a staph infection in her left leg. She has had a decline in function and essentially has become weaker and then bed-bound for the last month at least. She was eating less. She has arm weakness and bilateral rotator cuff tears that make it hard for her to move herself. She was become more withdrawn as well. No nausea, but a very poor appetite. She was not had a bowel movement for over a week. Discharge Providers Provider Date of admission: 10/01/24 17:17 Discharge Date: 10/03/24 Primary care physician: SCHUYLER Bell Consults: 09/29/24 18:01 Consult to [facility] [place] - [place] Stat Comment: [place] Consult needed for:: Unable to care for self 09/30/24 08:26 Consult to Physical Therapy Evaluate & Treat Comment: Physician Instructions: Evaluate and Treat 10/01/24 17:22 Consult to Discharge Planning Routine Comment: Consult to Occupational Therapy Evaluate & Treat Comment: Physician Instructions: Evaluate and treat Consult to Physical Therapy Evaluate & Treat Comment: Physician Instructions: Evaluate and Treat 10/01/24 18:48 Consult to Dietitian, Adult Routine Comment: Reason For Exam: eating problems Discharge provider: Da Hearn MD Summary Hospital Course Discharge Diagnosis: 1. Bed-bound, present on admission and active. 2. Wound concerns, present on admission and active. 3. Morbid obesity, present on admission and active. 4. Bilateral knee pain secondary to OA, present on admission and active. 5. Atrial fibrillation, chronic and stable. 6. Pacemaker implant, chronic and stable. Hospital Course: She was admitted for inability to walk due to acute bilateral knee pain from osteoarthritis. She was developing skin breakdown issues. She was accepted for assisted facility care for physical therapy and occupational therapy, strength building as well as skin care. She was stable for discharge on October 03. Status at Discharge Cognitive/behavioral status at discharge: oriented Functional status at discharge: bed bound Overall status at discharge: patient is progressing back to baseline Time Spent with Patient Time spent: Greater than 30 minutes Exam Vital Signs (past 8 hours): - 10/03/24 08:00 10/03/24 08:28 Temperature 98.6 F Pulse Rate 87 Respiratory Rate 17 Blood Pressure 105/65 140/86 Pulse Oximetry 96 Oxygen Flow Rate 0 Oxygen Delivery Method Room Air Oxygen Flow Rate 0 Narrative Exam Narrative: NAD, alert and oriented. Fluent speech. Lungs are clear, normal rate and effort. Heart is regular, no murmur gallop or rub. Abdomen is soft, non distended. Extremities are free of edema. Objective Labs 10/02/24 05:54 10/03/24 06:15 Labs: Laboratory Results - last 24 hr 10/03/24 06:15 Sodium 137 Potassium 4.0 Chloride 108 H Carbon Dioxide 24 BUN 16 Creatinine 0.42 L Estimated GFR > 60 BUN/Creatinine Ratio 38.1 H Glucose 95 Calcium 8.9 PFSH Medical History Cellulitis Essential hypertension Paroxysmal A-fib Dyslipidemia Diabetes mellitus type 2, controlled, without complications Normally functioning cardiac pacemaker present Fatty liver disease, nonalcoholic Skin tag (~1970) Osteoarthritis Depression (~1999) Anxiety (~1999) Carpal tunnel syndrome Cataracts, bilateral (~1999) Urinary incontinence, urge (~2011) Borderline glaucoma Chronic left shoulder pain Prediabetes CAD (coronary artery disease) Systolic heart failure (~2019) Surgical History Anesthesia History of cataract removal with insertion of prosthetic lens (~2015) Family History Father Cancer Mother No problems noted. Brother Alcoholism Schizophrenia Mental health problem Family/Other Hypertension Paranoia Mental health problem Social History household members: children Smoking Status: Never smoker Discharge Assessment & Plan Assessment and Plan Assessment: 1. Bed-bound, present on admission and active. 2. Wound concerns, present on admission and active. Plan of Treatment: Discharge to SNF Discharge Plan Discharge Plan Patient Disposition: Home Transfer to: [facility] Provider Discharge Comment: Stable for discharge to assisted facility for rehabilitation efforts. Discharge orders & Medications Prescriptions: New lidocaine 5 % Adhesive Patch,Medicated 1 patch topical BEDTIME Qty: 20 0RF Continued (DME) lancets [Fingerstix Lancets] Misc See Rx Instructions .Route Qty: 100 3RF Rx Instructions: As directed (DME) blood-glucose meter Misc See Rx Instructions .Route Qty: 1 0RF Rx Instructions: As directed (DME) Blood Glucose Test Strip See Rx Instructions .Route Qty: 100 3RF Rx Instructions: As directed latanoprost 0.005 % drops 1 drp EYE-BOTH BEDTIME (DME) BD Purewick Female External Catheter System See Rx Instructions .Route .MEDSUPPLY Qty: 1 0RF Rx Instructions: For at post op use Xarelto 20 mg tablet 20 mg PO DAILY mirtazapine 45 mg tablet 45 mg PO BEDTIME Qty: 90 3RF fluoxetine 40 mg capsule 40 mg PO DAILY Qty: 90 3RF metformin 500 mg tablet 500 mg PO BID Qty: 180 3RF atorvastatin 40 mg tablet 40 mg PO BEDTIME Qty: 90 3RF Ozempic 1 mg/dose (4 mg/3 mL) pen injector 1 mg SUBCUT QWEEK Qty: 3 3RF (DME) Disabled Parking Permit See Rx Instructions .Route .MEDSUPPLY Qty: 1 0RF Rx Instructions: Valid for 5 years gabapentin 300 mg capsule 300 mg PO .COMPLEX Qty: 270 1RF Rx Instructions: Take 1 cap by mouth every morning and 2 caps at bedtime oxybutynin chloride 15 mg tablet extended release 24hr 15 mg PO DAILY Qty: 90 1RF flecainide 50 mg tablet 50 mg PO BID metoprolol succinate 25 mg tablet extended release 24 hr 25 mg PO DAILY aspirin 81 mg Tablet 81 mg PO DAILY oxycodone-acetaminophen 7.5-325 mg tablet 1 tab PO Q4-6H PRN (Reason: pain) Qty: 20 0RF Follow up/Referrals: Nicolás Gillis ARNP [Primary Care Provider] - Discharge Health Status Multidrug resistant organism: No MDRO Diet/Activity/Treatments Diet: Regular Visit Report/Discharge Packet Stand Alone Forms: Patient Portal/API Discharge Data Primary Care Provider: Nicolás Gillis Attending Provider: Da Hearn Admit Date/Time: 10/01/24 17:17
--- NOTE | 2024-10-03 11:33 | PT-IP ANOTE ---
Pt refused PT at this time. PT may attempt to see pt later today.
--- NOTE | 2024-10-03 11:47 | OT.IPNOTE ---
Pt too tired to get up at this time. Spoke to nursing and case management due best to use stretcher for pt to get to SNF.
--- NOTE | 2024-10-03 12:10 | CM.DPNOTE ---
Addendum entered by Patricia Eugene MSW 10/03/24 14:58: Per Arti at [facility], asked that dtr bring in the Ozempic for pt. FORM LAYER spoke with dtr Mary Ann, asked she bring in the Ozempic to [facility]. Dtr in agreement. [facility] here to transport pt. No further CM needs identified at this time. SL Original Note: DCP Note FORM LAYER reviewed EMR. Per Arti at [facility], pt qualifies for 30 days or less of SNF rehab with her Medicaid benefit. Can take pt today, arrive no later than 4pm. Per Dhiraj in morning rounds, medically stable to dc to [facility] today. Per provider/therapy team/RN, rec stretcher transport due to wounds on buttocks. FORM LAYER completed PASRR and transport form. Provider signed PASRR, med list, and transport form. FORM LAYER spoke with dtr Mary Ann (p [phone]) to update on above information. In agreement with dc to [facility] today. Report verbal understanding that there is no guarantee that ins will cover pt's BLS transport but in agreement that that is her preference for transport. Mary Ann plans to meet pt at [facility] once pt arrives. FORM LAYER answered questions to best of ability. Per dtr, penitentiary plan is for pt to recover enough to return home with [facility] support and continued/increased RAS CG support. FORM LAYER emailed Jenna at [facility] to update on above plan. FORM LAYER spoke with Kendy (p [phone]) RAS CM and updated on above plan. Encouraged RAS team to re-evaluate pt's [facility] CG needs in next 30 days to adjust CG hours as needed. Kendy in agreement with plan. FORM LAYER spoke with Shaggy at [facility]. Scheduled transport for 1445. FORM LAYER updated TALENT ANALYST/RN. CC Saskia kindly agreed to send final dc information to Arti at [facility], placed med list/PASRR/transport form in chart. Gave RN report number. FORM LAYER spoke with pt in room. Groggy during conversation (recent pain meds per RN). In agreement with plan, preference to dc to [facility] via stretcher. Deny questions at this time. FORM LAYER updated TCM team re:DCP/terminal gauger plan. P: dc to [facility] SNF today at 1445 via [facility]. CM team will continue to follow as needed BENNETT Newsome
--- NOTE | 2024-10-03 16:04 | PC.NURSE ---
Transfer: Pt transfered to [facility]. Report given to admitting nurse Rosanna. Reviewed hospital course. Pt has high pain level even with meds. Pt was given pain med prior to d/c to home. She Is only minimally able to help herself. Will feed self but for all other care she is max assist. Pt usually voids inc. She has open areas on her buttocks, the dressings were changed. An aps referral was made and they have completed most of the review. She needs more care than the dtr is able to provide at this time. Dtr and pt both report she was moving on her own and doing her own care in Oct. She has felt more and more unwell and then she was admitted to the hospital. Questions answereed. Given direct line if she needs to call and ask more questions.
== END 2024-10-03 14:30 | disposition home or self-care (01) ==
LOC: ED 10-01 17:16 → AC 10-01 17:18
PROVIDERS: Emergency Medicine; Admitting Provider Hospitalist; Emergency Provider Emergency Medicine; PCP Registered Nurse Diabetes Educator; Referring Provider Emergency Medicine; Visit Provider Hospitalist
DX: R62.7 Adult failure to thrive (principal); Z95.0 Presence of cardiac pacemaker; M17.0 Bilateral primary osteoarthritis of knee; R73.03 Prediabetes; E66.01 Morbid (severe) obesity due to excess calories; Z74.01 Bed confinement status; I48.91 Unspecified atrial fibrillation
CPT/HCPCS: 36415; 71045; 73560; 80048; 80053; 81003; 81015; 82962; 83605; 83880; 84145; 85025; 87086; 93005; 93010; 96361; 96374; 96375; 97163; 97166; 97530; 99284; G0378; J1171; J2270

== ENCOUNTER 2024-10-31 19:32 | Emergency (ER) | payer MEDICARE, MEDICAID, SELFPAY ==
[2024-10-31] VITALS (23 sets, daily range): BP systolic 83–117; BP diastolic 49–61; PULSE 97–124; RESP 16–50; TEMP 36.9–39.3; O2SAT 89–100; BMI 40.3
--- NOTE | 2024-10-31 19:42 | EKG_ITS ---
[address] [address] Test Date: 2024-10-31 Pat Name: Belen Hays Department: Room: Gender: Female Preventive Medicine Officer: EMIR : 1955 Requested By: Order Number: [id number] Reading MD: Da Hearn Measurements Intervals [place] Rate: 100 P: 93 DE: 184 QRS: 133 QRSD: 174 T: -11 QT: 434 QTc: 559 Interpretive Statements Atrial-sensed ventricular-paced rhythm Electronically Signed On 11-01-2024 17:04:37 PST by Da Hearn
--- NOTE | 2024-10-31 19:43 | DI.RAD.S_ITS ---
PROCEDURE: XR CHEST 1V INDICATIONS: suspected sepsis TECHNIQUE: One view of the chest was acquired. COMPARISON: [facility], , XR CHEST 1V, 09/30/2024, 13:18. FINDINGS: Surgical changes and devices: Left chest wall AICD device with cardiac leads Lungs and pleura: Suboptimal positioning related to patient factors limits evaluation. No significant pleural effusions or pneumothorax. Mildly increased interstitial opacities Mediastinum: Mediastinal contours appear normal. Heart size is mildly enlarged. Bones and chest wall: No suspicious bony lesions. Overlying soft tissues appear unremarkable. IMPRESSION: Suboptimal positioning related to patient factors limits evaluation. Heart is mildly enlarged. Mildly increased interstitial opacities may represent mild pulmonary edema. No focal dense airspace consolidation. Approved by: Raquel Dan M.D.,Ph.D. on 10/31/2024 at 21:04
[2024-10-31] MEDS: SODIUM CHLORIDE 0.9% 1,000 ML 1000 ML IV ×2 (19:55→23:15)
--- NOTE | 2024-10-31 19:58 | PC.NURSE ---
Xray at bedside
[2024-10-31 19:59] LABS: Add Manual Diff / Slide Review NO; Basophils Absolute Auto 100 /uL (0-100); Basophils Percent Auto 0.6 % (0-2); Eosinophils Absolute Auto 100 /uL (0-450); Eosinophils Percent Auto 0.6 % (2-4); Hematocrit 27.3 % (36-46); Hemoglobin 8.5 g/dL (12.0-16.0); Lymphocytes Absolute Auto 2100 /uL (1100-4500); Lymphocytes Percent Auto 11.1 % (25-40); Mean Corpuscular HGB Conc 31.1 % (30-36); Mean Corpuscular Hemoglobin 24.4 PG (26-34); Mean Corpuscular Volume 78.5 fL (80-100); Monocytes Absolute Auto 900 /uL (0-900); Monocytes Percent Auto 4.7 % (3-14); Neutrophils Absolute Auto 15900 /uL (1500-7000); Platelet Count 284 X10^3/uL (150-400); Red Blood Cell Count 3.47 X10^6/uL (4.0-5.2); Red Cell Distribution Width 19.5 % (11.6-14.8); White Blood Cell Count 19.2 X10^3/uL (4.5-11.0)
[2024-10-31 20:05] LABS: INR 2.4 (0.9-1.3); Prothrombin Time 26.7 SECONDS (9.4-12.5)
[2024-10-31 20:07] LABS: PTT Partial Thromboplastin Tim 33 SECONDS (25.1-36.5)
[2024-10-31 20:09] LABS: Alanine Aminotransferase 16 IU/L (<35); Albumin 2.1 g/dL (3.5-5.0); Albumin Globulin Ratio 0.6 (1.0-2.8); Alkaline Phosphatase 179 U/L (38-126); Aspartate Aminotransferase 25 IU/L (14-36); BUN Creatinine Ratio 45.2 (6-22); Bilirubin Total 0.7 mg/dL (0.2-1.3); Blood Urea Nitrogen 28 mg/dL (7-17); Calcium 7.2 mg/dL (8.4-10.2); Carbon Dioxide 26 mmol/L (22-32); Chloride 100 mmol/L (98-107); Estimated Glomerular Filt Rate > 60 mL/min (>60); Globulin 3.4 g/dL (1.7-4.1); Glucose 90 mg/dL (80-110); HEMOLYSIS < 15 (0-50); Lactate (Lactic Acid) 2.1 mmol/L (0.7-2.1); Lipase 17 U/L (23-300); Potassium 4.1 mmol/L (3.4-5.1); Sodium 129 mmol/L (137-145); Total Protein 5.5 g/dL (6.3-8.2)
[2024-10-31 20:26] LABS: Procalcitonin 0.793 ng/mL (<0.5)
--- NOTE | 2024-10-31 21:15 | PC.NURSE ---
Indwelling urinary catheter placed per protocol. Urine sample sent to lab. Pt cleaned and rotates to right side from left at this time for patient comfort. Daughters remain at bedside. Pt remains connected to cardiac, resp, blood pressure and pulse ox monitors with alarms on and audible. Temp sensing monitor placed with urinary catheter for continuous monitoring.
[2024-10-31 21:27] LABS: Appearance Urine UA SL CLOUDY; Bilirubin Urine UA 1+ (NEGATIVE); Glucose Urine UA NEGATIVE (Negative); Ketones Urine UA TRACE (NEGATIVE); Leukocyte Esterase Urine UA TRACE (NEGATIVE); Nitrite Urine UA NEGATIVE (Negative); Occult Blood Urine UA NEGATIVE (Negative); Protein Urine UA NEGATIVE (Negative); Specific Gravity Urine UA 1.015 (1.000-1.035)
[2024-10-31 21:29] LABS: Reflexed Lactate in 2 Hours Y
[2024-10-31 21:34] LABS: Color Urine UA Dark Yellow; pH Urine UA 5.5 (4.5-8.0)
[2024-10-31 21:36] LABS: Bacteria Urine Many (>30); RBC Urine 0-1/HPF (0-5/HPF); Squamous Epithelial Cell Urine 5-10 /HPF (0-5/HPF); Urine Volume 10mL (spun); WBC Urine 10-30/HPF (0-5/HPF)
[2024-10-31 21:37] LABS: Culture Indicated Urine Specimen Cultured; Ictotest Urine Negative (Negative)
[2024-10-31 21:57] LABS: Lactate 2HR (Lactic Acid Rflx) 2.3 mmol/L (0.7-2.1)
[2024-10-31 22:30] LABS: Influenza A - CEPHEID Flu A NEGATIVE (NEGATIVE); Influenza B - CEPHEID Flu B NEGATIVE (NEGATIVE); Respiratory Syncytial Virus Negative (Negative)
[2024-10-31 22:31] LABS: COVID-19 CEPHEID 4-PLEX PCR Negative (Negative)
[2024-10-31] MEDS: ACETAMINOPHEN 325 MG TABLET 975 MG PO (22:36)
[2024-10-31] MEDS: SODIUM CHLORIDE 0.9% 1,000 ML 2000 ML IV (22:37)
[2024-10-31] MEDS: cefTRIAXone 2,000 MG in SODIUM CHLORIDE 0.9% 100 ML 200 MG IV (22:37)
--- NOTE | 2024-10-31 23:11 | ED_ITS ---
HPI - General Adult <Denis Norris MD - Last Filed: 11/01/24 16:40> General Chief complaint: Altered Mental Status Stated complaint: fever Time Seen by Provider: 10/31/24 21:32 Source: EMS Mode of arrival: EMS History of Present Illness HPI narrative: 69-year-old female with history of obesity and bed sores, was resident at [facility] in [place], taken out of the half-way today by her daughter, for concerns about her patient care there, also seemed to be somewhat confused, worried that she might have fevers, though apparently no fevers were diagnosed there per daughter at bedside. Not usually on oxygen but now requiring some oxygen. Prior bed sores had been dressed at the half-way, unclear if they are healing or if they are worsening. Related Data Home Medications Medication Instructions Recorded Confirmed latanoprost 0.005 % eye drops 1 drp EYE-BOTH BEDTIME 07/10/22 10/01/24 rivaroxaban 20 mg tablet (Xarelto) 20 mg PO DAILY 11/13/23 09/30/24 flecainide 50 mg tablet 50 mg PO BID 01/09/24 09/30/24 metoprolol succinate 25 mg 25 mg PO DAILY 01/09/24 09/30/24 tablet,extended release 24 hr aspirin 81 mg tablet 81 mg PO DAILY 09/30/24 09/30/24 Previous Rx's Medication Instructions Recorded Disabled Parking Permit #1 ea 07/11/23 BD Purewick Female External #1 ea 08/20/23 Catheter System fluoxetine 40 mg capsule 40 mg PO DAILY #90 caps 11/13/23 metformin 500 mg tablet 500 mg PO BID #180 tabs 11/13/23 mirtazapine 45 mg tablet 45 mg PO BEDTIME #90 tabs 11/13/23 atorvastatin 40 mg tablet 40 mg PO BEDTIME #90 tabs 11/15/23 blood sugar diagnostic (Blood #100 ea 11/21/23 Glucose Test strips) blood-glucose meter #1 ea 11/21/23 lancets (Fingerstix Lancets) #100 ea 11/21/23 gabapentin 300 mg capsule 300 mg PO .COMPLEX #270 caps 05/12/24 oxybutynin chloride 15 mg 15 mg PO DAILY #90 tabs 05/12/24 tablet,extended release 24 hr semaglutide 1 mg/dose (4 mg/3 mL) 1 mg (0.75 mL) SUBCUT QWEEK #3 mL 08/11/24 subcutaneous pen injector (Ozempic) lidocaine 5 % topical patch 1 patch topical BEDTIME #20 ea 10/03/24 oxycodone-acetaminophen 7.5 mg-325 1 tab PO Q4-6H PRN pain #20 tabs 10/03/24 mg tablet Allergies Allergy/AdvReac Type Severity Reaction Status Date / Time No Known Drug Allergies Allergy Verified 09/29/24 18:00 Review of Systems <David Lamb DO - Last Filed: 11/01/24 11:45> Review of Systems ROS Unobtainable: All systems reviewed & are unremarkable except as noted in HPI and below Patient History <Denis Norris MD - Last Filed: 11/01/24 16:40> Medical History Cellulitis Essential hypertension Paroxysmal A-fib Dyslipidemia Diabetes mellitus type 2, controlled, without complications Normally functioning cardiac pacemaker present Fatty liver disease, nonalcoholic Skin tag (~1969) Osteoarthritis Depression (~1999) Anxiety (~1999) Carpal tunnel syndrome Cataracts, bilateral (~1999) Urinary incontinence, urge (~2011) Borderline glaucoma Chronic left shoulder pain Prediabetes CAD (coronary artery disease) Systolic heart failure (~2019) Surgical History Anesthesia History of cataract removal with insertion of prosthetic lens (~2015) Family History Father Cancer Mother No problems noted. Brother Alcoholism Schizophrenia Mental health problem Family/Other Hypertension Paranoia Mental health problem Social History household members: children Smoking Status: Never smoker Smoking Status: Never smoker alcohol intake frequency: holidays/special occasions only Exam <Denis Norris MD - Last Filed: 11/01/24 16:40> Narrative Exam Narrative: GENERAL: Well-developed patient, in mild distress. Obesity with BMI 40.4 noted. HEAD: Atraumatic. Normocephalic. EYES: Pupils equal round and reactive. Extraocular motions intact. No scleral icterus. No injection or drainage. ENT: Nose without bleeding, purulent drainage. Throat without erythema, tonsillar hypertrophy or exudate. Airway patent. Wearing nasal cannula, not usually on oxygen. NECK: Trachea midline. Non tender CARDIOVASCULAR: Regular rate and rhythm without murmurs, gallops, or rubs. RESPIRATORY: Clear to auscultation. Breath sounds equal bilaterally. No wheezes, rales, or rhonchi. GASTROINTESTINAL: Obese, mild diffuse tenderness, no obvious fluid wave. EXTREMITIES: No edema or joint tenderness. No lower extremity edema. BACK: Nontender without deformity or crepitance. No flank tenderness. Sacral area learge decubitus 6x5 cm oval opening and about 2-3 cm depth, exudate visible with removing of packing, swab sent for culture, photos taken for medical record, no surrounding redness or crepitance to surrounding skin or adjacent back/buttocks NEURO: AOx3. Motor functions grossly nonfocal SKIN: some areas perineal superficial skin breakdown, large midline sacral decubitus as above Back section. Initial Vital Signs Initial Vital Signs: Vital Signs Pulse Rate 101 H 10/31/24 19:36 Respiratory Rate 29 H 10/31/24 19:36 Pulse Oximetry 90 L 10/31/24 19:36 Oxygen Delivery Method Room Air 10/31/24 19:36 <David Lamb DO - Last Filed: 11/01/24 11:45> Initial Vital Signs Initial Vital Signs: Vital Signs Pulse Rate 101 H 10/31/24 19:36 Respiratory Rate 29 H 10/31/24 19:36 Pulse Oximetry 90 L 10/31/24 19:36 Oxygen Delivery Method Room Air 10/31/24 19:36 Procedures <David Lamb DO - Last Filed: 11/01/24 11:45> Central Line Placement Right IJ: Time Out Performed: Yes Patient Placed on Monitor/Pulse Ox: Yes MD Prep: mask, gown and gloves Central Line Prep: Povidone-Iodine 1% Local Anesthetic: lidocaine 1% Amount of anesthesia used (mL): 5 Ultrasound Used for Placement: Yes Central Line Lumen Inserted: triple Post Procedure: good blood return and sterile dressing applied Post Procedure X-Ray: tip of catheter in good position and no pneumothorax seen Patient Tolerated Procedure: Well Complications: none Course <Denis Norris MD - Last Filed: 11/01/24 16:40> Orders Ordered: ED Orders 11/01/24 08:55 XR chest 1V Stat Discontinued Medications Acetaminophen (Acetaminophen 325 Mg Tablet) 975 mg PO NOW ONE Stop: 10/31/24 22:25 Last Admin: 10/31/24 22:36 Dose: 975 mg Documented By: HOMAR Flecainide Acetate (Flecainide 100 Mg Tablet) 50 mg PO NOW ONE Stop: 11/01/24 08:06 Last Admin: 11/01/24 08:16 Dose: 50 mg Documented By: AMMON Sodium Chloride (Normal Saline 0.9%) 1,000 mls @ 1,000 mls/hr IV BOLUS ONE Stop: 10/31/24 20:42 Last Infusion: 10/31/24 20:56 Dose: Infused Documented By: Admin: 10/31/24 19:55 Dose: 1,000 mls/hr Documented By: HOMAR Sodium Chloride (Normal Saline 0.9%) 1,000 mls @ 1,000 mls/hr IV BOLUS ONE Stop: 10/31/24 23:23 Last Infusion: 11/01/24 00:30 Dose: Infused Documented By: Admin: 10/31/24 23:15 Dose: 1,000 mls/hr Documented By: HOMAR Ceftriaxone Sodium 2,000 mg/ (Sodium Chloride) 100 mls @ 200 mls/hr IV NOW ONE Stop: 10/31/24 22:25 Last Infusion: 10/31/24 23:12 Dose: Infused Documented By: Admin: 10/31/24 22:37 Dose: 200 mls/hr Documented By: HOMAR Sodium Chloride (Normal Saline 0.9%) 1,000 mls @ 2,000 mls/hr IV BOLUS ONE Stop: 10/31/24 23:00 Last Infusion: 10/31/24 23:12 Dose: Infused Documented By: Admin: 10/31/24 22:37 Dose: 2,000 mls/hr Documented By: HOMAR Vancomycin HCl 2,000 mg/ (Sodium Chloride) 500 mls @ 250 mls/hr IV NOW ONE Stop: 11/01/24 02:09 Last Infusion: 11/01/24 05:35 Dose: Infused Documented By: Admin: 11/01/24 03:29 Dose: 250 mls/hr Documented By: HOMAR Piperacillin Sod/Tazobactam (Sod 4.5 gm/ Sodium Chloride) 100 mls @ 200 mls/hr IV NOW ONE Stop: 11/01/24 02:11 Last Infusion: 11/01/24 03:29 Dose: Infused Documented By: Admin: 11/01/24 03:00 Dose: 200 mls/hr Documented By: HOMAR Clindamycin Phosphate (Cleocin) 900 mg in 50 mls @ 50 mls/hr IV NOW ONE Stop: 11/01/24 04:38 Last Infusion: 11/01/24 06:43 Dose: Infused Documented By: Admin: 11/01/24 05:35 Dose: 50 mls/hr Documented By: HOMAR Acetaminophen (Ofirmev) 1,000 mg in 100 mls @ 400 mls/hr IV NOW ONE Stop: 11/01/24 06:25 Last Infusion: 11/01/24 07:01 Dose: Infused Documented By: Admin: 11/01/24 06:35 Dose: 400 mls/hr Documented By: HOMAR Sodium Chloride (Normal Saline 0.9%) 1,000 mls @ 150 mls/hr IV CONT MASSIEL Last Infusion: 11/01/24 12:00 Dose: 0 mls/hr Documented By: Admin: 11/01/24 07:03 Dose: 150 mls/hr Documented By: HOMAR Piperacillin Sod/Tazobactam (Sod 3.375 gm/ Sodium Chloride) 100 mls @ 25 mls/hr IV Q8H [facility] Last Infusion: 11/01/24 12:00 Dose: 0 mls/hr Documented By: Admin: 11/01/24 09:30 Dose: 25 mls/hr Documented By: AMMON Vancomycin HCl (Vancomycin) 1,250 mg in 250 mls @ 250 mls/hr IV Q8H [facility] Lactated Ringer's (Lactated Ringers) 1,000 mls @ 1,000 mls/hr IV BOLUS ONE Stop: 11/01/24 09:02 Last Infusion: 11/01/24 09:28 Dose: Infused Documented By: Admin: 11/01/24 08:09 Dose: 1,000 mls/hr Documented By: AMMON NOREPINEPHRINE BITARTRATE/D5W (Levophed) 4 mg in 250 mls @ 42.524 mls/hr IV TITRATE MASSIEL; Protocol Last Titration: 11/01/24 10:00 Dose: 0 mcg/kg/min, 0 mls/hr Documented By: Admin: 11/01/24 09:09 Dose: 0.1 mcg/kg/min, 42.524 mls/hr Documented By: AMMON Ondansetron HCl (Ondansetron 4 Mg/2 Ml Inj) 4 mg IV NOW PRN PRN Reason: Nausea And Vomiting Ondansetron HCl (Ondansetron 4 Mg Odt) 4 mg SL NOW PRN PRN Reason: Nausea And Vomiting Vancomycin HCl (Vancomycin Per Pharmacy) 1 request MISC NOW PRN PRN Reason: dose of vancomycin Vancomycin HCl (Vancomycin Trough) 1 request MISC 1130 [facility] Stop: 11/02/24 11:31 Vital Signs Vital signs: Vital Signs - 8 hr 11/01/24 08:30 11/01/24 08:31 11/01/24 08:31 Temperature 100.0 F H 100.0 F H Pulse Rate 98 H 99 H Respiratory Rate 30 H 28 H Blood Pressure 87/54 L Pulse Oximetry 95 95 11/01/24 08:40 11/01/24 08:40 11/01/24 08:45 Temperature 99.9 F H Pulse Rate 103 H Respiratory Rate 33 H Blood Pressure 92/53 L 93/56 L Pulse Oximetry 98 11/01/24 08:45 11/01/24 08:50 11/01/24 08:50 Temperature 99.7 F H 99.7 F H Pulse Rate 102 H 101 H Respiratory Rate 31 H 34 H Blood Pressure 93/54 L Pulse Oximetry 98 98 11/01/24 08:55 11/01/24 08:55 11/01/24 09:00 Temperature 99.7 F H 99.5 F Pulse Rate 101 H 101 H Respiratory Rate 34 H 26 H Blood Pressure 93/50 L Pulse Oximetry 99 98 11/01/24 09:01 11/01/24 09:01 11/01/24 09:05 Temperature 99.5 F Pulse Rate 101 H Respiratory Rate 26 H Blood Pressure 102/53 L 94/52 L Pulse Oximetry 98 11/01/24 09:05 11/01/24 09:10 11/01/24 09:10 Temperature 99.5 F 99.5 F Pulse Rate 101 H 100 H Respiratory Rate 28 H 17 Blood Pressure 96/54 L Pulse Oximetry 98 98 11/01/24 09:15 11/01/24 09:15 11/01/24 09:20 Temperature 99.3 F Pulse Rate 98 H Respiratory Rate 10 L Blood Pressure 104/61 106/61 Pulse Oximetry 98 11/01/24 09:20 11/01/24 09:25 11/01/24 09:25 Temperature 99.1 F 99.1 F Pulse Rate 96 H 96 H Respiratory Rate 13 18 Blood Pressure 102/61 Pulse Oximetry 98 97 11/01/24 09:30 11/01/24 09:30 11/01/24 09:35 Temperature 99.1 F Pulse Rate 96 H Respiratory Rate 21 Blood Pressure 104/64 102/60 Pulse Oximetry 97 11/01/24 09:35 11/01/24 09:40 11/01/24 09:40 Temperature 99.1 F 99.1 F Pulse Rate 96 H 96 H Respiratory Rate 21 25 H Blood Pressure 95/56 L Pulse Oximetry 97 97 11/01/24 09:45 11/01/24 09:45 11/01/24 09:51 Temperature 99.1 F 99.1 F Pulse Rate 96 H 97 H Respiratory Rate 19 26 H Blood Pressure 96/58 L Pulse Oximetry 98 98 11/01/24 09:51 11/01/24 10:00 11/01/24 10:00 Temperature 99.0 F Pulse Rate 97 H Respiratory Rate 26 H Blood Pressure 95/58 L 154/67 H Pulse Oximetry 97 11/01/24 10:06 11/01/24 10:06 11/01/24 10:10 Temperature 99.0 F 99.0 F Pulse Rate 96 H 97 H Respiratory Rate 25 H 26 H Blood Pressure 89/50 L Pulse Oximetry 96 96 11/01/24 10:10 11/01/24 10:15 11/01/24 10:15 Temperature 99.0 F Pulse Rate 98 H Respiratory Rate 19 Blood Pressure 92/57 L 93/56 L Pulse Oximetry 97 11/01/24 10:20 11/01/24 10:20 11/01/24 10:25 Temperature 99.0 F 98.8 F Pulse Rate 99 H 97 H Respiratory Rate 14 21 Blood Pressure 96/58 L Pulse Oximetry 98 97 11/01/24 10:25 11/01/24 10:30 11/01/24 10:30 Temperature 98.8 F Pulse Rate 98 H Respiratory Rate 21 Blood Pressure 95/55 L 97/52 L Pulse Oximetry 97 11/01/24 10:35 11/01/24 10:35 11/01/24 10:40 Temperature 98.8 F Pulse Rate 96 H Respiratory Rate 23 Blood Pressure 89/51 L 84/54 L Pulse Oximetry 97 11/01/24 10:40 11/01/24 10:45 11/01/24 10:45 Temperature 98.8 F 98.6 F Pulse Rate 96 H 96 H Respiratory Rate 12 20 Blood Pressure 98/53 L Pulse Oximetry 97 98 11/01/24 10:50 11/01/24 10:50 11/01/24 10:55 Temperature 98.6 F Pulse Rate 95 H Respiratory Rate 22 Blood Pressure 89/55 L 100/55 L Pulse Oximetry 98 11/01/24 10:55 11/01/24 11:00 11/01/24 11:00 Temperature 98.6 F 98.6 F Pulse Rate 96 H 99 H Respiratory Rate 14 12 Blood Pressure 106/58 L Pulse Oximetry 99 98 11/01/24 11:06 11/01/24 11:06 11/01/24 11:10 Temperature 98.6 F 98.6 F Pulse Rate 101 H 100 H Respiratory Rate 12 18 Blood Pressure 108/65 Pulse Oximetry 98 98 11/01/24 11:10 11/01/24 11:15 11/01/24 11:15 Temperature 98.4 F Pulse Rate 100 H Respiratory Rate 24 Blood Pressure 110/64 109/68 Pulse Oximetry 98 11/01/24 11:19 11/01/24 11:20 11/01/24 11:20 Temperature 98.4 F 98.4 F Pulse Rate 99 H 99 H Respiratory Rate 23 24 Blood Pressure 110/64 Pulse Oximetry 99 98 11/01/24 11:25 11/01/24 11:25 11/01/24 11:30 Temperature 98.4 F 98.4 F Pulse Rate 98 H 98 H Respiratory Rate 18 22 Blood Pressure 104/64 Pulse Oximetry 98 99 11/01/24 11:30 11/01/24 11:35 11/01/24 11:35 Temperature 98.6 F Pulse Rate 98 H Respiratory Rate 26 H Blood Pressure 115/66 117/65 Pulse Oximetry 98 <David Lamb, DO - Last Filed: 11/01/24 11:45> Orders Ordered: ED Orders 11/01/24 08:55 XR chest 1V Stat Discontinued Medications Acetaminophen (Acetaminophen 325 Mg Tablet) 975 mg PO NOW ONE Stop: 10/31/24 22:25 Last Admin: 10/31/24 22:36 Dose: 975 mg Documented By: HOMAR Flecainide Acetate (Flecainide 100 Mg Tablet) 50 mg PO NOW ONE Stop: 11/01/24 08:06 Last Admin: 11/01/24 08:16 Dose: 50 mg Documented By: AMMON Sodium Chloride (Normal Saline 0.9%) 1,000 mls @ 1,000 mls/hr IV BOLUS ONE Stop: 10/31/24 20:42 Last Infusion: 10/31/24 20:56 Dose: Infused Documented By: Admin: 10/31/24 19:55 Dose: 1,000 mls/hr Documented By: HOMAR Sodium Chloride (Normal Saline 0.9%) 1,000 mls @ 1,000 mls/hr IV BOLUS ONE Stop: 10/31/24 23:23 Last Infusion: 11/01/24 00:30 Dose: Infused Documented By: Admin: 10/31/24 23:15 Dose: 1,000 mls/hr Documented By: HOMAR Ceftriaxone Sodium 2,000 mg/ (Sodium Chloride) 100 mls @ 200 mls/hr IV NOW ONE Stop: 10/31/24 22:25 Last Infusion: 10/31/24 23:12 Dose: Infused Documented By: Admin: 10/31/24 22:37 Dose: 200 mls/hr Documented By: HOMAR Sodium Chloride (Normal Saline 0.9%) 1,000 mls @ 2,000 mls/hr IV BOLUS ONE Stop: 10/31/24 23:00 Last Infusion: 10/31/24 23:12 Dose: Infused Documented By: Admin: 10/31/24 22:37 Dose: 2,000 mls/hr Documented By: HOMAR Vancomycin HCl 2,000 mg/ (Sodium Chloride) 500 mls @ 250 mls/hr IV NOW ONE Stop: 11/01/24 02:09 Last Infusion: 11/01/24 05:35 Dose: Infused Documented By: Admin: 11/01/24 03:29 Dose: 250 mls/hr Documented By: HOMAR Piperacillin Sod/Tazobactam (Sod 4.5 gm/ Sodium Chloride) 100 mls @ 200 mls/hr IV NOW ONE Stop: 11/01/24 02:11 Last Infusion: 11/01/24 03:29 Dose: Infused Documented By: Admin: 11/01/24 03:00 Dose: 200 mls/hr Documented By: HOMAR Clindamycin Phosphate (Cleocin) 900 mg in 50 mls @ 50 mls/hr IV NOW ONE Stop: 11/01/24 04:38 Last Infusion: 11/01/24 06:43 Dose: Infused Documented By: Admin: 11/01/24 05:35 Dose: 50 mls/hr Documented By: HOMAR Acetaminophen (Ofirmev) 1,000 mg in 100 mls @ 400 mls/hr IV NOW ONE Stop: 11/01/24 06:25 Last Infusion: 11/01/24 07:01 Dose: Infused Documented By: Admin: 11/01/24 06:35 Dose: 400 mls/hr Documented By: HOMAR Sodium Chloride (Normal Saline 0.9%) 1,000 mls @ 150 mls/hr IV CONT MASSIEL Last Infusion: 11/01/24 12:00 Dose: 0 mls/hr Documented By: Admin: 11/01/24 07:03 Dose: 150 mls/hr Documented By: HOMAR Piperacillin Sod/Tazobactam (Sod 3.375 gm/ Sodium Chloride) 100 mls @ 25 mls/hr IV Q8H [facility] Last Infusion: 11/01/24 12:00 Dose: 0 mls/hr Documented By: Admin: 11/01/24 09:30 Dose: 25 mls/hr Documented By: AMMON Vancomycin HCl (Vancomycin) 1,250 mg in 250 mls @ 250 mls/hr IV Q8H [facility] Lactated Ringer's (Lactated Ringers) 1,000 mls @ 1,000 mls/hr IV BOLUS ONE Stop: 11/01/24 09:02 Last Infusion: 11/01/24 09:28 Dose: Infused Documented By: Admin: 11/01/24 08:09 Dose: 1,000 mls/hr Documented By: AMMON NOREPINEPHRINE BITARTRATE/D5W (Levophed) 4 mg in 250 mls @ 42.524 mls/hr IV TITRATE MASSIEL; Protocol Last Titration: 11/01/24 10:00 Dose: 0 mcg/kg/min, 0 mls/hr Documented By: Admin: 11/01/24 09:09 Dose: 0.1 mcg/kg/min, 42.524 mls/hr Documented By: AMMON Ondansetron HCl (Ondansetron 4 Mg/2 Ml Inj) 4 mg IV NOW PRN PRN Reason: Nausea And Vomiting Ondansetron HCl (Ondansetron 4 Mg Odt) 4 mg SL NOW PRN PRN Reason: Nausea And Vomiting Vancomycin HCl (Vancomycin Per Pharmacy) 1 request MISC NOW PRN PRN Reason: dose of vancomycin Vancomycin HCl (Vancomycin Trough) 1 request MISC 1130 [facility] Stop: 11/02/24 11:31 Vital Signs Vital signs: Vital Signs - 8 hr 11/01/24 08:30 11/01/24 08:31 11/01/24 08:31 Temperature 100.0 F H 100.0 F H Pulse Rate 98 H 99 H Respiratory Rate 30 H 28 H Blood Pressure 87/54 L Pulse Oximetry 95 95 11/01/24 08:40 11/01/24 08:40 11/01/24 08:45 Temperature 99.9 F H Pulse Rate 103 H Respiratory Rate 33 H Blood Pressure 92/53 L 93/56 L Pulse Oximetry 98 11/01/24 08:45 11/01/24 08:50 11/01/24 08:50 Temperature 99.7 F H 99.7 F H Pulse Rate 102 H 101 H Respiratory Rate 31 H 34 H Blood Pressure 93/54 L Pulse Oximetry 98 98 11/01/24 08:55 11/01/24 08:55 11/01/24 09:00 Temperature 99.7 F H 99.5 F Pulse Rate 101 H 101 H Respiratory Rate 34 H 26 H Blood Pressure 93/50 L Pulse Oximetry 99 98 11/01/24 09:01 11/01/24 09:01 11/01/24 09:05 Temperature 99.5 F Pulse Rate 101 H Respiratory Rate 26 H Blood Pressure 102/53 L 94/52 L Pulse Oximetry 98 11/01/24 09:05 11/01/24 09:10 11/01/24 09:10 Temperature 99.5 F 99.5 F Pulse Rate 101 H 100 H Respiratory Rate 28 H 17 Blood Pressure 96/54 L Pulse Oximetry 98 98 11/01/24 09:15 11/01/24 09:15 11/01/24 09:20 Temperature 99.3 F Pulse Rate 98 H Respiratory Rate 10 L Blood Pressure 104/61 106/61 Pulse Oximetry 98 11/01/24 09:20 11/01/24 09:25 11/01/24 09:25 Temperature 99.1 F 99.1 F Pulse Rate 96 H 96 H Respiratory Rate 13 18 Blood Pressure 102/61 Pulse Oximetry 98 97 11/01/24 09:30 11/01/24 09:30 11/01/24 09:35 Temperature 99.1 F Pulse Rate 96 H Respiratory Rate 21 Blood Pressure 104/64 102/60 Pulse Oximetry 97 11/01/24 09:35 11/01/24 09:40 11/01/24 09:40 Temperature 99.1 F 99.1 F Pulse Rate 96 H 96 H Respiratory Rate 21 25 H Blood Pressure 95/56 L Pulse Oximetry 97 97 11/01/24 09:45 11/01/24 09:45 11/01/24 09:51 Temperature 99.1 F 99.1 F Pulse Rate 96 H 97 H Respiratory Rate 19 26 H Blood Pressure 96/58 L Pulse Oximetry 98 98 11/01/24 09:51 11/01/24 10:00 11/01/24 10:00 Temperature 99.0 F Pulse Rate 97 H Respiratory Rate 26 H Blood Pressure 95/58 L 154/67 H Pulse Oximetry 97 11/01/24 10:06 11/01/24 10:06 11/01/24 10:10 Temperature 99.0 F 99.0 F Pulse Rate 96 H 97 H Respiratory Rate 25 H 26 H Blood Pressure 89/50 L Pulse Oximetry 96 96 11/01/24 10:10 11/01/24 10:15 11/01/24 10:15 Temperature 99.0 F Pulse Rate 98 H Respiratory Rate 19 Blood Pressure 92/57 L 93/56 L Pulse Oximetry 97 11/01/24 10:20 11/01/24 10:20 11/01/24 10:25 Temperature 99.0 F 98.8 F Pulse Rate 99 H 97 H Respiratory Rate 14 21 Blood Pressure 96/58 L Pulse Oximetry 98 97 11/01/24 10:25 11/01/24 10:30 11/01/24 10:30 Temperature 98.8 F Pulse Rate 98 H Respiratory Rate 21 Blood Pressure 95/55 L 97/52 L Pulse Oximetry 97 11/01/24 10:35 11/01/24 10:35 11/01/24 10:40 Temperature 98.8 F Pulse Rate 96 H Respiratory Rate 23 Blood Pressure 89/51 L 84/54 L Pulse Oximetry 97 11/01/24 10:40 11/01/24 10:45 11/01/24 10:45 Temperature 98.8 F 98.6 F Pulse Rate 96 H 96 H Respiratory Rate 12 20 Blood Pressure 98/53 L Pulse Oximetry 97 98 11/01/24 10:50 11/01/24 10:50 11/01/24 10:55 Temperature 98.6 F Pulse Rate 95 H Respiratory Rate 22 Blood Pressure 89/55 L 100/55 L Pulse Oximetry 98 11/01/24 10:55 11/01/24 11:00 11/01/24 11:00 Temperature 98.6 F 98.6 F Pulse Rate 96 H 99 H Respiratory Rate 14 12 Blood Pressure 106/58 L Pulse Oximetry 99 98 11/01/24 11:06 11/01/24 11:06 11/01/24 11:10 Temperature 98.6 F 98.6 F Pulse Rate 101 H 100 H Respiratory Rate 12 18 Blood Pressure 108/65 Pulse Oximetry 98 98 11/01/24 11:10 11/01/24 11:15 11/01/24 11:15 Temperature 98.4 F Pulse Rate 100 H Respiratory Rate 24 Blood Pressure 110/64 109/68 Pulse Oximetry 98 11/01/24 11:19 11/01/24 11:20 11/01/24 11:20 Temperature 98.4 F 98.4 F Pulse Rate 99 H 99 H Respiratory Rate 23 24 Blood Pressure 110/64 Pulse Oximetry 99 98 11/01/24 11:25 11/01/24 11:25 11/01/24 11:30 Temperature 98.4 F 98.4 F Pulse Rate 98 H 98 H Respiratory Rate 18 22 Blood Pressure 104/64 Pulse Oximetry 98 99 11/01/24 11:30 11/01/24 11:35 11/01/24 11:35 Temperature 98.6 F Pulse Rate 98 H Respiratory Rate 26 H Blood Pressure 115/66 117/65 Pulse Oximetry 98 Medical Decision Making <Denis Norris MD - Last Filed: 11/01/24 16:40> Lab Data Lab results reviewed: Yes I reviewed the patient's lab results. Lab results narrative: White blood cell count 97751, hemoglobin 8.5, platelets 109538. Sodium 129 with glucose 90. Serum potassium 4.1. BUN 28 with creatinine 0.62. Liver functions unremarkable. Urinalysis suspicious for infection, urine culture pending. 11/01/24 05:00 11/01/24 05:00 Labs: Lab Results 10/31/24 10/31/24 10/31/24 Range/Units 19:45 21:15 21:40 WBC 19.2 H (4.5-11.0) X10^3/uL RBC 3.47 L (4.0-5.2) X10^6/uL Hgb 8.5 L (12.0-16.0) g/dL Hct 27.3 L (36-46) % MCV 78.5 L (80-100) fL MCH 24.4 L (26-34) PG MCHC 31.1 (30-36) % RDW 19.5 H (11.6-14.8) % Plt Count 284 (150-400) X10^3/uL Neut % (Auto) 83.0 H (50-75) % Lymph % (Auto) 11.1 L (25-40) % [place] % (Auto) 4.7 (3-14) % Eos % (Auto) 0.6 L (2-4) % Baso % (Auto) 0.6 (0-2) % Neut # (Auto) 86224 H (0900-6905) /uL Lymph # (Auto) 2100 (9555-6816) /uL [place] # (Auto) 900 (0-900) /uL Eos # (Auto) 100 (0-450) /uL Baso # (Auto) 100 (0-100) /uL Total Counted Seg Neutrophils % (38-70) % Band Neutrophils % (3-7) % Lymphocytes % (Manual) (25-45) % Monocytes % (Manual) (2-11) % Neutrophils # (Manual) (3947-8281) /uL RBC Morphology Polychromasia Hypochromasia Anisocytosis ESR (0-20) MM/HR PT 26.7 H (9.4-12.5) SECONDS INR 2.4 H (0.9-1.3) APTT 33 (25.1-36.5) SECONDS Sodium 129 L (137-145) mmol/L Potassium 4.1 (3.4-5.1) mmol/L Chloride 100 (98-107) mmol/L Carbon Dioxide 26 (22-32) mmol/L BUN 28 H (7-17) mg/dL Creatinine 0.62 (0.52-1.04) mg/dL Estimated GFR > 60 (>60) mL/min BUN/Creatinine Ratio 45.2 H (6-22) Glucose 90 (80-110) mg/dL Lactate 2.1 2.3 H (0.7-2.1) mmol/L Calcium 7.2 L (8.4-10.2) mg/dL Total Bilirubin 0.7 (0.2-1.3) mg/dL AST 25 (14-36) IU/L ALT 16 (<35) IU/L Alkaline Phosphatase 179 H (38-126) U/L C-Reactive Protein (<1.0) mg/dL Total Protein 5.5 L (6.3-8.2) g/dL Albumin 2.1 L (3.5-5.0) g/dL Globulin 3.4 (1.7-4.1) g/dL Albumin/Globulin Ratio 0.6 L (1.0-2.8) Lipase 17 L (23-300) U/L Procalcitonin 0.793 H (<0.5) ng/mL Urine Color Dark yellow Urine Appearance Sl cloudy Urine pH 5.5 (4.5-8.0) Ur Specific [place] 1.015 (1.000-1.035) Urine Protein Negative (Negative) Urine Glucose (UA) Negative (Negative) g/dL Urine Ketones Trace H (NEGATIVE) Urine Occult Blood Negative (Negative) Urine Nitrate Negative (Negative) Urine Bilirubin 1+ H (NEGATIVE) Ur Bilirubin Confirm Negative (Negative) Urine Urobilinogen 2.0 H (0.2) E.U./dL Ur Leukocyte Esterase Trace H (NEGATIVE) Urine RBC 0-1/hpf (0-5/HPF) Urine WBC 10-30/hpf H (0-5/HPF) Ur Squamous Epith Cells 5-10 /hpf H (0-5/HPF) Urine Bacteria Many (>30) H (None) Ur Culture Indicated? Specimen cultured Vol Urine Centrifuged 10ml (spun) A.calcoaceticus-baumannii cmplx PCR Not detected (Not Detect) Bacteroides fragilis Not detected (Not Detect) Beatrice albicans (PCR) Not detected (Not Detect) Beatrice auris (PCR) Not detected (Not Detect) C. glabrata (PCR) Not detected (Not Detect) C. krusei (PCR) Not detected (Not Detect) C. parapsilosis (PCR) Not detected (Not Detect) C. tropicalis (PCR) Not detected (Not Detect) SARS-CoV-2 (PCR) (Negative) C. neoform/gattii (PCR) Not detected (Not Detect) Enterobacterales (PCR) Not detected (Not Detect) E. cloacae complex PCR Not detected (Not Detect) Enterococc faecalis PCR Detected (Not Detect) Enterococc faecium PCR Not detected (Not Detect) E. coli (PCR) Not detected (Not Detect) H. influenzae (PCR) Not detected (Not Detect) Influenza A (RT-PCR) (NEGATIVE) Influenza B (RT-PCR) (NEGATIVE) Klebsiella aerogenes (PCR) Not detected (Not Detect) Klebsiella oxytoca PCR Not detected (Not Detect) Klebsiella pneumoniae Not detected (Not Detect) List. monocytogenes PCR Not detected (Not Detect) N. meningitidis (PCR) Not detected (Not Detect) Proteus species (PCR) Not detected (Not Detect) RSV (PCR) (Negative) Salmonella spp. (PCR) Not detected (Not Detect) Serratia marcescens PCR Not detected (Not Detect) Staphylococcus sp PCR Not detected (Not Detect) Staph aureus (PCR) Not detected (Not Detect) mecA/C & MREJ Resist Gene Not applicable (Not Detect) mecA/C-Methicil Resis Gene Not applicable (Not Detect) mcr-1 Colistin Res Gene PCR Not applicable (Not Detect) Staph epidermidis (PCR) Not detected (Not Detect) Staph lugdunensis PCR Not detected (Not Detect) S. maltophilia (PCR) Not detected (Not Detect) Streptococcus sp PCR Not detected (Not Detect) Group A Strep (PCR) Not detected (Not Detect) Strep agalactiae (PCR) Not detected (Not Detect) Strep pneumoniae (PCR) Not detected (Not Detect) P. aeruginosa (PCR) Not detected (Not Detect) Blaine/B-Vanco Res Genes Not detected (Not Detect) blaIMP Car res Gene PCR Not applicable (Not Detect) KPC-Carbap Res Gene PCR Not applicable (Not Detect) blaNDM Car Res Gene PCR Not applicable (Not Detect) OXA-48 Carbapenem Resis Gene (PCR) Not applicable (Not Detect) blaVIM Car Res Gene PCR Not applicable (Not Detect) CTX-M Gene Resistance (PCR) Not applicable (Not Detect) 10/31/24 11/01/24 11/01/24 Range/Units 21:49 00:24 05:00 WBC 19.0 H (4.5-11.0) X10^3/uL RBC 3.53 L (4.0-5.2) X10^6/uL Hgb 8.6 L (12.0-16.0) g/dL Hct 28.5 L (36-46) % MCV 80.7 (80-100) fL MCH 24.4 L (26-34) PG MCHC 30.2 (30-36) % RDW 20.4 H (11.6-14.8) % Plt Count 294 (150-400) X10^3/uL Neut % (Auto) Not Reportable (50-75) % Lymph % (Auto) Not Reportable (25-40) % [place] % (Auto) Not Reportable (3-14) % Eos % (Auto) Not Reportable (2-4) % Baso % (Auto) Not Reportable (0-2) % Neut # (Auto) (5050-1085) /uL Lymph # (Auto) Not Reportable (9078-8502) /uL [place] # (Auto) Not Reportable (0-900) /uL Eos # (Auto) (0-450) /uL Baso # (Auto) Not Reportable (0-100) /uL Total Counted 100 Seg Neutrophils % 83.0 H (38-70) % Band Neutrophils % 6.0 (3-7) % Lymphocytes % (Manual) 9.0 L (25-45) % Monocytes % (Manual) 2.0 (2-11) % Neutrophils # (Manual) 54557 H (5855-5883) /uL RBC Morphology See below Polychromasia 1+ H Hypochromasia 1+ H Anisocytosis 1+ H ESR 56 H (0-20) MM/HR PT (9.4-12.5) SECONDS INR (0.9-1.3) APTT (25.1-36.5) SECONDS Sodium 130 L (137-145) mmol/L Potassium 4.0 (3.4-5.1) mmol/L Chloride 102 (98-107) mmol/L Carbon Dioxide 23 (22-32) mmol/L BUN 28 H (7-17) mg/dL Creatinine 0.55 (0.52-1.04) mg/dL Estimated GFR > 60 (>60) mL/min BUN/Creatinine Ratio 50.9 H (6-22) Glucose 68 L (80-110) mg/dL Lactate 1.9 (0.7-2.1) mmol/L Calcium 7.0 L (8.4-10.2) mg/dL Total Bilirubin (0.2-1.3) mg/dL AST (14-36) IU/L ALT (<35) IU/L Alkaline Phosphatase (38-126) U/L C-Reactive Protein 43.7 H (<1.0) mg/dL Total Protein (6.3-8.2) g/dL Albumin (3.5-5.0) g/dL Globulin (1.7-4.1) g/dL Albumin/Globulin Ratio (1.0-2.8) Lipase (23-300) U/L Procalcitonin (<0.5) ng/mL Urine Color Urine Appearance Urine pH (4.5-8.0) Ur Specific [place] (1.000-1.035) Urine Protein (Negative) Urine Glucose (UA) (Negative) g/dL Urine Ketones (NEGATIVE) Urine Occult Blood (Negative) Urine Nitrate (Negative) Urine Bilirubin (NEGATIVE) Ur Bilirubin Confirm (Negative) Urine Urobilinogen (0.2) E.U./dL Ur Leukocyte Esterase (NEGATIVE) Urine RBC (0-5/HPF) Urine WBC (0-5/HPF) Ur Squamous Epith Cells (0-5/HPF) Urine Bacteria (None) Ur Culture Indicated? Vol Urine Centrifuged A.calcoaceticus-baumannii cmplx PCR (Not Detect) Bacteroides fragilis (Not Detect) Beatrice albicans (PCR) (Not Detect) Beatrice auris (PCR) (Not Detect) C. glabrata (PCR) (Not Detect) C. krusei (PCR) (Not Detect) C. parapsilosis (PCR) (Not Detect) C. tropicalis (PCR) (Not Detect) SARS-CoV-2 (PCR) Negative (Negative) C. neoform/gattii (PCR) (Not Detect) Enterobacterales (PCR) (Not Detect) E. cloacae complex PCR (Not Detect) Enterococc faecalis PCR (Not Detect) Enterococc faecium PCR (Not Detect) E. coli (PCR) (Not Detect) H. influenzae (PCR) (Not Detect) Influenza A (RT-PCR) Flu a negative (NEGATIVE) Influenza B (RT-PCR) Flu b negative (NEGATIVE) Klebsiella aerogenes (PCR) (Not Detect) Klebsiella oxytoca PCR (Not Detect) Klebsiella pneumoniae (Not Detect) List. monocytogenes PCR (Not Detect) N. meningitidis (PCR) (Not Detect) Proteus species (PCR) (Not Detect) RSV (PCR) Negative (Negative) Salmonella spp. (PCR) (Not Detect) Serratia marcescens PCR (Not Detect) Staphylococcus sp PCR (Not Detect) Staph aureus (PCR) (Not Detect) mecA/C & MREJ Resist Gene (Not Detect) mecA/C-Methicil Resis Gene (Not Detect) mcr-1 Colistin Res Gene PCR (Not Detect) Staph epidermidis (PCR) (Not Detect) Staph lugdunensis PCR (Not Detect) S. maltophilia (PCR) (Not Detect) Streptococcus sp PCR (Not Detect) Group A Strep (PCR) (Not Detect) Strep agalactiae (PCR) (Not Detect) Strep pneumoniae (PCR) (Not Detect) P. aeruginosa (PCR) (Not Detect) Blaine/B-Vanco Res Genes (Not Detect) blaIMP Car res Gene PCR (Not Detect) KPC-Carbap Res Gene PCR (Not Detect) blaNDM Car Res Gene PCR (Not Detect) OXA-48 Carbapenem Resis Gene (PCR) (Not Detect) blaVIM Car Res Gene PCR (Not Detect) CTX-M Gene Resistance (PCR) (Not Detect) Imaging Data CT scan - abdomen/pelvis: Radiologist's Impression: [address] [address] [address] Scan Report Signed Patient: Belen Hays MR#: [id number] : 1955 Acct:[id number] Age/Sex: 69 / F Date of Service: 10/31/24 Loc: ED Accession Number: [id number] Procedure: CT abdomen pelvis w con Ordering Provider: Denis Norris MD PROCEDURE: CT ABDOMEN PELVIS W CON INDICATIONS: UTI, fever, sacral decubitus wound TECHNIQUE: After the administration of intravenous contrast, axial sections acquired from the lung bases to the pubic symphysis. Coronal and sagittal reformats were performed. For radiation dose reduction, the following was used: automated exposure control, adjustment of mA and/or kV according to patient size. COMPARISON: None. FINDINGS: Image quality: Diagnostic. Lower Chest: Heart is enlarged. Left lung base atelectasis. ABDOMEN: Liver: No solid mass. Gallbladder: Cholelithiasis without wall thickening or pericholecystic fluid. Biliary ducts: No biliary dilation. Pancreas: No ductal dilation. Spleen: Size is within normal limits. Adrenal Glands: No adrenal nodules. Kidneys and Ureters: No hydronephrosis. No solid mass. No complex renal cystic lesion which requires follow up. Stomach and Bowel: Normal colonic caliber, without significant wall thickening. Peritoneum: No abnormal intraperitoneal fluid. No free air. Ventral Wall: No significant ventral hernia. Abdominal Nodes: No retroperitoneal or mesenteric adenopathy by size criteria. Vessels: Aorta and inferior vena cava are normal in size. PELVIS: Pelvic Organs: Unremarkable. Bladder: Bladder decompressed around Pack catheter in situ. Pelvic Nodes: No enlarged lymph nodes. Miscellaneous: No inguinal hernias are seen. Left sacral ulceration with areas of soft tissue fat stranding and emphysema extending into the left ischioanal fossa and along the perineum. No organized fluid collection to suggest abscess. Bones: No aggressive osseous abnormality. IMPRESSION: Left sacral ulceration with soft tissue stranding and subcutaneous emphysema in the left gluteal region extending into the left ischioanal fossa and left perineum. Recommend clinical correlation for Basil's gangrene. No organized fluid collection to suggest abscess. Additional findings as above. Approved by: Raquel Dan M.D.,Ph.D. on 11/01/2024 at 1:43 Chest x-ray: Radiologist's Impression: [address] [address] XRay Report Signed Patient: Belen Hays MR#: [id number] : 1955 Acct:[id number] Age/Sex: 69 / F Date of Service: 10/31/24 Loc: ED Accession Number: [id number] Procedure: XR chest 1V Ordering Provider: Denis Norris MD PROCEDURE: XR CHEST 1V INDICATIONS: suspected sepsis TECHNIQUE: One view of the chest was acquired. COMPARISON: [facility], CR, XR CHEST 1V, 09/30/2024, 13:18. FINDINGS: Surgical changes and devices: Left chest wall AICD device with cardiac leads Lungs and pleura: Suboptimal positioning related to patient factors limits evaluation. No significant pleural effusions or pneumothorax. Mildly increased interstitial opacities Mediastinum: Mediastinal contours appear normal. Heart size is mildly enlarged. Bones and chest wall: No suspicious bony lesions. Overlying soft tissues appear unremarkable. IMPRESSION: Suboptimal positioning related to patient factors limits evaluation. Heart is mildly enlarged. Mildly increased interstitial opacities may represent mild pulmonary edema. No focal dense airspace consolidation. Approved by: Raquel Dan M.D.,Ph.D. on 10/31/2024 at 21:04 MDM Narrative Medical decision making narrative: 69-year-old female had been residing in a half-way in [place], taken out of the half-way earlier today by daughter who seemed to be not satisfied with the care there, also noted to have fever that she thought was not being addressed there, history of decubitus skin ulcers. Fever noted on triage here. Urinalysis suspicious for infection, blood in urine cultures requested, IV ceftriaxone for UTI coverage. Initial lactate elevated, IV fluids initiated. Chest x-ray shows no acute changes, see radiology report. History of decubitus ulcer, patient extremely large habitus, renal function adequate, we will image, CT abdomen and pelvis with IV contrast imaging. CT abdomen and pelvis with IV contrast. Impressions: ?Left sacral ulceration with soft tissue stranding and subcutaneous emphysema in the left gluteal region extending into the left ischioanal fossa and left perineum. Recommend clinical correlation for Basil's gangrene. No organized fluid collection to suggest abscess. See radiology report Initial lactate 2.1, repeat lactate 2.3 elevated, subsequent lactate 1.9 improved Ceftriaxone given prior for possible UTI. Blood culture sent prior. We will attempt wound culture in affected area above. Add IV vancomycin. Add IV Zosyn. Add IV clindamycin. Lateral right decubitus position for examination, with assistance multiple staff members, large sacral decubitus about 6x5 cm opening, 2-3 cm depth, with exudate, wound culture sent. Photos wound obtained with permission of the patient/family for the medical record. We will consult local surgery your to see if they feel comfortable managing patient here, versus transfer to tertiary bariatric center 0300, case discussed with general surgery here Dr Cody, who feels patient should be managed at a higher level of care with bariatric capable facility. Relayed recommendation to patient/daughter, who agree with need for transfer. We will query tertiary centers 0340, case discussed with [facility]/ intake, await call back [phone], case discussed with [facility] surgery Dr. Harris, who reviewed images, and case discussion, does not feel the patient has necrotizing fasciitis, they are saturated at their facility, advised transfer to an alternate facility, suggested [facility] for alternate placement options. [facility] consult requested for bariatric wound care placement options. 05, case discussion with [facility], await call back. [phone], bed search still in progress, signed out to oncoming ED shift physician Dr. Adonis Lamb: Received turned over. Review patient's history and physical exam and workup up to this point. Patient has received antibiotics. She was received fluids greater than 30 cc/kilogram and still has had minimal urine output. Her creatinine is unremarkable. She does have a Pack catheter in place. Patient was started have down trending blood pressures with a systolic blood pressure in the 70s and a mean arterial pressure in the low 60s. A right IJ was placed. She was placed on Levophed for very short period of time but we are able to wean this off. I initially discussed the case with Dr. Maxwell on- call for General surgery at [facility] who accepts to see the patient in consultation. I then discussed the case with Dr. Bai hospitalist on-call [facility] who accepts the patient in transfer however it was after this discussion with the patient became hypotensive and needed blood pressure support. I then discussed the case with Dr. Carter intensive care at [facility] who accepts patient in transfer. Patient was currently stable for transport. <David Lamb, DO - Last Filed: 11/01/24 11:45> Lab Data Labs: Lab Results 10/31/24 10/31/24 10/31/24 Range/Units 19:45 21:15 21:40 WBC 19.2 H (4.5-11.0) X10^3/uL RBC 3.47 L (4.0-5.2) X10^6/uL Hgb 8.5 L (12.0-16.0) g/dL Hct 27.3 L (36-46) % MCV 78.5 L (80-100) fL MCH 24.4 L (26-34) PG MCHC 31.1 (30-36) % RDW 19.5 H (11.6-14.8) % Plt Count 284 (150-400) X10^3/uL Neut % (Auto) 83.0 H (50-75) % Lymph % (Auto) 11.1 L (25-40) % [place] % (Auto) 4.7 (3-14) % Eos % (Auto) 0.6 L (2-4) % Baso % (Auto) 0.6 (0-2) % Neut # (Auto) 14628 H (9222-2509) /uL Lymph # (Auto) 2100 (5444-7094) /uL [place] # (Auto) 900 (0-900) /uL Eos # (Auto) 100 (0-450) /uL Baso # (Auto) 100 (0-100) /uL Total Counted Seg Neutrophils % (38-70) % Band Neutrophils % (3-7) % Lymphocytes % (Manual) (25-45) % Monocytes % (Manual) (2-11) % Neutrophils # (Manual) (2042-2305) /uL RBC Morphology Polychromasia Hypochromasia Anisocytosis ESR (0-20) MM/HR PT 26.7 H (9.4-12.5) SECONDS INR 2.4 H (0.9-1.3) APTT 33 (25.1-36.5) SECONDS Sodium 129 L (137-145) mmol/L Potassium 4.1 (3.4-5.1) mmol/L Chloride 100 (98-107) mmol/L Carbon Dioxide 26 (22-32) mmol/L BUN 28 H (7-17) mg/dL Creatinine 0.62 (0.52-1.04) mg/dL Estimated GFR > 60 (>60) mL/min BUN/Creatinine Ratio 45.2 H (6-22) Glucose 90 (80-110) mg/dL Lactate 2.1 2.3 H (0.7-2.1) mmol/L Calcium 7.2 L (8.4-10.2) mg/dL Total Bilirubin 0.7 (0.2-1.3) mg/dL AST 25 (14-36) IU/L ALT 16 (<35) IU/L Alkaline Phosphatase 179 H (38-126) U/L C-Reactive Protein (<1.0) mg/dL Total Protein 5.5 L (6.3-8.2) g/dL Albumin 2.1 L (3.5-5.0) g/dL Globulin 3.4 (1.7-4.1) g/dL Albumin/Globulin Ratio 0.6 L (1.0-2.8) Lipase 17 L (23-300) U/L Procalcitonin 0.793 H (<0.5) ng/mL Urine Color Dark yellow Urine Appearance Sl cloudy Urine pH 5.5 (4.5-8.0) Ur Specific [place] 1.015 (1.000-1.035) Urine Protein Negative (Negative) Urine Glucose (UA) Negative (Negative) g/dL Urine Ketones Trace H (NEGATIVE) Urine Occult Blood Negative (Negative) Urine Nitrate Negative (Negative) Urine Bilirubin 1+ H (NEGATIVE) Ur Bilirubin Confirm Negative (Negative) Urine Urobilinogen 2.0 H (0.2) E.U./dL Ur Leukocyte Esterase Trace H (NEGATIVE) Urine RBC 0-1/hpf (0-5/HPF) Urine WBC 10-30/hpf H (0-5/HPF) Ur Squamous Epith Cells 5-10 /hpf H (0-5/HPF) Urine Bacteria Many (>30) H (None) Ur Culture Indicated? Specimen cultured Vol Urine Centrifuged 10ml (spun) A.calcoaceticus-baumannii cmplx PCR Not detected (Not Detect) Bacteroides fragilis Not detected (Not Detect) Beatrice albicans (PCR) Not detected (Not Detect) Beatrice auris (PCR) Not detected (Not Detect) C. glabrata (PCR) Not detected (Not Detect) C. krusei (PCR) Not detected (Not Detect) C. parapsilosis (PCR) Not detected (Not Detect) C. tropicalis (PCR) Not detected (Not Detect) SARS-CoV-2 (PCR) (Negative) C. neoform/gattii (PCR) Not detected (Not Detect) Enterobacterales (PCR) Not detected (Not Detect) E. cloacae complex PCR Not detected (Not Detect) Enterococc faecalis PCR Detected (Not Detect) Enterococc faecium PCR Not detected (Not Detect) E. coli (PCR) Not detected (Not Detect) H. influenzae (PCR) Not detected (Not Detect) Influenza A (RT-PCR) (NEGATIVE) Influenza B (RT-PCR) (NEGATIVE) Klebsiella aerogenes (PCR) Not detected (Not Detect) Klebsiella oxytoca PCR Not detected (Not Detect) Klebsiella pneumoniae Not detected (Not Detect) List. monocytogenes PCR Not detected (Not Detect) N. meningitidis (PCR) Not detected (Not Detect) Proteus species (PCR) Not detected (Not Detect) RSV (PCR) (Negative) Salmonella spp. (PCR) Not detected (Not Detect) Serratia marcescens PCR Not detected (Not Detect) Staphylococcus sp PCR Not detected (Not Detect) Staph aureus (PCR) Not detected (Not Detect) mecA/C & MREJ Resist Gene Not applicable (Not Detect) mecA/C-Methicil Resis Gene Not applicable (Not Detect) mcr-1 Colistin Res Gene PCR Not applicable (Not Detect) Staph epidermidis (PCR) Not detected (Not Detect) Staph lugdunensis PCR Not detected (Not Detect) S. maltophilia (PCR) Not detected (Not Detect) Streptococcus sp PCR Not detected (Not Detect) Group A Strep (PCR) Not detected (Not Detect) Strep agalactiae (PCR) Not detected (Not Detect) Strep pneumoniae (PCR) Not detected (Not Detect) P. aeruginosa (PCR) Not detected (Not Detect) Blaine/B-Vanco Res Genes Not detected (Not Detect) blaIMP Car res Gene PCR Not applicable (Not Detect) KPC-Carbap Res Gene PCR Not applicable (Not Detect) blaNDM Car Res Gene PCR Not applicable (Not Detect) OXA-48 Carbapenem Resis Gene (PCR) Not applicable (Not Detect) blaVIM Car Res Gene PCR Not applicable (Not Detect) CTX-M Gene Resistance (PCR) Not applicable (Not Detect) 10/31/24 11/01/24 11/01/24 Range/Units 21:49 00:24 05:00 WBC 19.0 H (4.5-11.0) X10^3/uL RBC 3.53 L (4.0-5.2) X10^6/uL Hgb 8.6 L (12.0-16.0) g/dL Hct 28.5 L (36-46) % MCV 80.7 (80-100) fL MCH 24.4 L (26-34) PG MCHC 30.2 (30-36) % RDW 20.4 H (11.6-14.8) % Plt Count 294 (150-400) X10^3/uL Neut % (Auto) Not Reportable (50-75) % Lymph % (Auto) Not Reportable (25-40) % [place] % (Auto) Not Reportable (3-14) % Eos % (Auto) Not Reportable (2-4) % Baso % (Auto) Not Reportable (0-2) % Neut # (Auto) (7450-0390) /uL Lymph # (Auto) Not Reportable (3427-5470) /uL [place] # (Auto) Not Reportable (0-900) /uL Eos # (Auto) (0-450) /uL Baso # (Auto) Not Reportable (0-100) /uL Total Counted 100 Seg Neutrophils % 83.0 H (38-70) % Band Neutrophils % 6.0 (3-7) % Lymphocytes % (Manual) 9.0 L (25-45) % Monocytes % (Manual) 2.0 (2-11) % Neutrophils # (Manual) 75625 H (5223-9756) /uL RBC Morphology See below Polychromasia 1+ H Hypochromasia 1+ H Anisocytosis 1+ H ESR 56 H (0-20) MM/HR PT (9.4-12.5) SECONDS INR (0.9-1.3) APTT (25.1-36.5) SECONDS Sodium 130 L (137-145) mmol/L Potassium 4.0 (3.4-5.1) mmol/L Chloride 102 (98-107) mmol/L Carbon Dioxide 23 (22-32) mmol/L BUN 28 H (7-17) mg/dL Creatinine 0.55 (0.52-1.04) mg/dL Estimated GFR > 60 (>60) mL/min BUN/Creatinine Ratio 50.9 H (6-22) Glucose 68 L (80-110) mg/dL Lactate 1.9 (0.7-2.1) mmol/L Calcium 7.0 L (8.4-10.2) mg/dL Total Bilirubin (0.2-1.3) mg/dL AST (14-36) IU/L ALT (<35) IU/L Alkaline Phosphatase (38-126) U/L C-Reactive Protein 43.7 H (<1.0) mg/dL Total Protein (6.3-8.2) g/dL Albumin (3.5-5.0) g/dL Globulin (1.7-4.1) g/dL Albumin/Globulin Ratio (1.0-2.8) Lipase (23-300) U/L Procalcitonin (<0.5) ng/mL Urine Color Urine Appearance Urine pH (4.5-8.0) Ur Specific [place] (1.000-1.035) Urine Protein (Negative) Urine Glucose (UA) (Negative) g/dL Urine Ketones (NEGATIVE) Urine Occult Blood (Negative) Urine Nitrate (Negative) Urine Bilirubin (NEGATIVE) Ur Bilirubin Confirm (Negative) Urine Urobilinogen (0.2) E.U./dL Ur Leukocyte Esterase (NEGATIVE) Urine RBC (0-5/HPF) Urine WBC (0-5/HPF) Ur Squamous Epith Cells (0-5/HPF) Urine Bacteria (None) Ur Culture Indicated? Vol Urine Centrifuged A.calcoaceticus-baumannii cmplx PCR (Not Detect) Bacteroides fragilis (Not Detect) Beatrice albicans (PCR) (Not Detect) Beatrice auris (PCR) (Not Detect) C. glabrata (PCR) (Not Detect) C. krusei (PCR) (Not Detect) C. parapsilosis (PCR) (Not Detect) C. tropicalis (PCR) (Not Detect) SARS-CoV-2 (PCR) Negative (Negative) C. neoform/gattii (PCR) (Not Detect) Enterobacterales (PCR) (Not Detect) E. cloacae complex PCR (Not Detect) Enterococc faecalis PCR (Not Detect) Enterococc faecium PCR (Not Detect) E. coli (PCR) (Not Detect) H. influenzae (PCR) (Not Detect) Influenza A (RT-PCR) Flu a negative (NEGATIVE) Influenza B (RT-PCR) Flu b negative (NEGATIVE) Klebsiella aerogenes (PCR) (Not Detect) Klebsiella oxytoca PCR (Not Detect) Klebsiella pneumoniae (Not Detect) List. monocytogenes PCR (Not Detect) N. meningitidis (PCR) (Not Detect) Proteus species (PCR) (Not Detect) RSV (PCR) Negative (Negative) Salmonella spp. (PCR) (Not Detect) Serratia marcescens PCR (Not Detect) Staphylococcus sp PCR (Not Detect) Staph aureus (PCR) (Not Detect) mecA/C & MREJ Resist Gene (Not Detect) mecA/C-Methicil Resis Gene (Not Detect) mcr-1 Colistin Res Gene PCR (Not Detect) Staph epidermidis (PCR) (Not Detect) Staph lugdunensis PCR (Not Detect) S. maltophilia (PCR) (Not Detect) Streptococcus sp PCR (Not Detect) Group A Strep (PCR) (Not Detect) Strep agalactiae (PCR) (Not Detect) Strep pneumoniae (PCR) (Not Detect) P. aeruginosa (PCR) (Not Detect) Blaine/B-Vanco Res Genes (Not Detect) blaIMP Car res Gene PCR (Not Detect) KPC-Carbap Res Gene PCR (Not Detect) blaNDM Car Res Gene PCR (Not Detect) OXA-48 Carbapenem Resis Gene (PCR) (Not Detect) blaVIM Car Res Gene PCR (Not Detect) CTX-M Gene Resistance (PCR) (Not Detect) Imaging Data IJ placement: Radiologist's Impression: PROCEDURE: XR CHEST 1V INDICATIONS: central line placement TECHNIQUE: One view of the chest was acquired. COMPARISON: [facility], XR CHEST 1V, 10/31/2024, 19:43. [facility], XR CHEST 1V, 09/30/2024, 13:18. FINDINGS: Surgical changes and devices: Pulse generator with dual-chamber electrode leads. A right central line is seen, with tip projecting over lower SVC. Lungs and pleura: Very low lung volumes. Prominence of the interstitium, [id number]. No drainable effusions. Mediastinum: Cardiomegaly. Bones and chest wall: There are degenerative changes. IMPRESSION: A right central line has tip projecting over the lower SVC. Interstitial prominence probably edema versus atypical infection. Cardiomegaly. Very low lung volumes on limited single view radiograph. MDM Narrative Medical decision making narrative: 69-year-old female had been residing in a half-way in [place], taken out of the half-way earlier today by daughter who seemed to be not satisfied with the care there, also noted to have fever that she thought was not being addressed, history of decubitus ulcers. Fever noted on triage here. Urinalysis suspicious for infection, blood in urine cultures requested, IV ceftriaxone. Initial lactate elevated, IV fluids initiated. Chest x-ray shows no acute changes, see radiology report. History of decubitus ulcer, patient extremely large habitus, renal function adequate, we will image, CT abdomen and pelvis with IV contrast imaging. CT abdomen and pelvis with IV contrast. Impressions: ?Left sacral ulceration with soft tissue stranding and subcutaneous emphysema in the left gluteal region extending into the left ischioanal fossa and left perineum. Recommend clinical correlation for Basil's gangrene. No organized fluid collection to suggest abscess. See radiology report Initial lactate 2.1, repeat lactate 2.3 elevated, subsequent lactate 1.9 improved Ceftriaxone given prior for possible UTI. Blood culture sent prior. We will attempt wound culture in affected area above. Add IV vancomycin. Add IV Zosyn. Add IV clindamycin. Lateral right decubitus position for examination, large sacral decubitus about 6x4 cm opening, 3 cm depth, with exudate, wound culture sent. Photos wound obtained with permission of the patient/family We will consult surgery your to see if they feel comfortable managing patient versus transfer to tertiary center 0300, case discussed with general surgery here Dr Cody, who feels patient should be managed at a higher level of care with bariatric capable facility. Relayed recommendation to patient/daughter, who agree with need for transfer. We will query tertiary centers 0340, case discussed with [facility]/ intake, await call back [phone], case discussed with [facility] surgery Dr. Harris, who reviewed images, and case discussion, does not feel the patient has necrotizing fasciitis, they are saturated, advised transfer to alternate facility, suggested [facility] for alternate placement options. [facility] consult requested for bariatric wound care placement options. [id number], case discussion with [facility], await call back [phone], bed search still in progress, [facility] out [facility] physician Dr. Adonis Lamb: Received turned over. Review patient's history and physical exam and workup up to this point. Patient has received antibiotics. She was received fluids greater than 30 cc/kilogram and still has had minimal urine output. Her creatinine is unremarkable. She does have a Pack catheter in place. Patient was started have down trending blood pressures with a systolic blood pressure in the 70s and a mean arterial pressure in the low 60s. A right IJ was placed. She was placed on Levophed for very short period of time but we are able to wean this off. I initially discussed the case with Dr. Maxwell on- call for General surgery at [facility] who accepts to see the patient in consultation. I then discussed the case with Dr. Bai hospitalist on-call [facility] who accepts the patient in transfer however it was after this discussion with the patient became hypotensive and needed blood pressure support. I then discussed the case with Dr. Carter intensive care at [facility] who accepts patient in transfer. Patient was currently stable for transport. Critical Care Time <David Lamb, - Last Filed: 11/01/24 11:45> Critical Care Time Critical Care Time: Yes Total Critical Care Time: 45 Attestation: The high probability of a clinically significant, sudden or life threatening deterioration of the [cardiovascular] system(s) required my full and direct attention, intervention and personal management. The aggregate critical care time was [45] minutes. This time is in addition to time spent performing reported procedures but includes the following: [x] Data Review and interpretation [x] Patient assessment and monitoring of vital signs [x] Documentation [x] Medication orders and management Discharge Plan Departure Patient Disposition: [facility] Clinical Impression: Urinary tract infection, Morbid obesity, Sacral decubitus ulcer Prescriptions: No Action (DME) lancets [Fingerstix Lancets] Misc See Rx Instructions .Route Qty: 100 3RF Rx Instructions: As directed (DME) blood-glucose meter Misc See Rx Instructions .Route Qty: 1 0RF Rx Instructions: As directed (DME) Blood Glucose Test Strip See Rx Instructions .Route Qty: 100 3RF Rx Instructions: As directed latanoprost 0.005 % drops 1 drp EYE-BOTH BEDTIME (DME) BD Purewick Female External Catheter System See Rx Instructions .Route .MEDSUPPLY Qty: 1 0RF Rx Instructions: For at post op use Xarelto 20 mg tablet 20 mg PO DAILY mirtazapine 45 mg tablet 45 mg PO BEDTIME Qty: 90 3RF fluoxetine 40 mg capsule 40 mg PO DAILY Qty: 90 3RF metformin 500 mg tablet 500 mg PO BID Qty: 180 3RF atorvastatin 40 mg tablet 40 mg PO BEDTIME Qty: 90 3RF Ozempic 1 mg/dose (4 mg/3 mL) pen injector 1 mg SUBCUT QWEEK Qty: 3 3RF (DME) Disabled Parking Permit See Rx Instructions .Route .MEDSUPPLY Qty: 1 0RF Rx Instructions: Valid for 5 years gabapentin 300 mg capsule 300 mg PO .COMPLEX Qty: 270 1RF Rx Instructions: Take 1 cap by mouth every morning and 2 caps at bedtime oxybutynin chloride 15 mg tablet extended release 24hr 15 mg PO DAILY Qty: 90 1RF flecainide 50 mg tablet 50 mg PO BID metoprolol succinate 25 mg tablet extended release 24 hr 25 mg PO DAILY aspirin 81 mg Tablet 81 mg PO DAILY lidocaine 5 % Adhesive Patch,Medicated 1 patch topical BEDTIME Qty: 20 0RF oxycodone-acetaminophen 7.5-325 mg tablet 1 tab PO Q4-6H PRN (Reason: pain) Qty: 20 0RF Referrals: Nicolás Gillis ARNP [Primary Care Provider] -
--- NOTE | 2024-10-31 23:58 | DI.CT.S_ITS ---
PROCEDURE: CT ABDOMEN PELVIS W CON INDICATIONS: UTI, fever, sacral decubitus wound TECHNIQUE: After the administration of intravenous contrast, axial sections acquired from the lung bases to the pubic symphysis. Coronal and sagittal reformats were performed. For radiation dose reduction, the following was used: automated exposure control, adjustment of mA and/or kV according to patient size. COMPARISON: None. FINDINGS: Image quality: Diagnostic. Lower Chest: Heart is enlarged. Left lung base atelectasis. ABDOMEN: Liver: No solid mass. Gallbladder: Cholelithiasis without wall thickening or pericholecystic fluid. Biliary ducts: No biliary dilation. Pancreas: No ductal dilation. Spleen: Size is within normal limits. Adrenal Glands: No adrenal nodules. Kidneys and Ureters: No hydronephrosis. No solid mass. No complex renal cystic lesion which requires follow up. Stomach and Bowel: Normal colonic caliber, without significant wall thickening. Peritoneum: No abnormal intraperitoneal fluid. No free air. Ventral Wall: No significant ventral hernia. Abdominal Nodes: No retroperitoneal or mesenteric adenopathy by size criteria. Vessels: Aorta and inferior vena cava are normal in size. PELVIS: Pelvic Organs: Unremarkable. Bladder: Bladder decompressed around Pack catheter in situ. Pelvic Nodes: No enlarged lymph nodes. Miscellaneous: No inguinal hernias are seen. Left sacral ulceration with areas of soft tissue fat stranding and emphysema extending into the left ischioanal fossa and along the perineum. No organized fluid collection to suggest abscess. Bones: No aggressive osseous abnormality. IMPRESSION: Left sacral ulceration with soft tissue stranding and subcutaneous emphysema in the left gluteal region extending into the left ischioanal fossa and left perineum. Recommend clinical correlation for Basil's gangrene. No organized fluid collection to suggest abscess. Additional findings as above. Approved by: Raquel Dan M.D.,Ph.D. on 11/01/2024 at 1:43
[2024-11-01] VITALS (76 sets, daily range): BP systolic 76–154; BP diastolic 47–68; PULSE 94–103; RESP 10–37; TEMP 36.9–39.2; O2SAT 93–100
--- NOTE | 2024-11-01 00:10 | PC.NURSE ---
Pt to imaging via ED stretcher with imaging and ED techs
[2024-11-01 01:33] LABS: Lactate (Lactic Acid) 1.9 mmol/L (0.7-2.1)
--- NOTE | 2024-11-01 02:03 | PC.NURSE ---
Dr. Norris made aware of current UOP.
--- NOTE | 2024-11-01 02:53 | PC.NURSE ---
Pt rolled onto left side. Jr Mott at bedside to observe coccyx wound. Pictures taken and wound packed with sterile gauze, then covered with wound dressing. Left posterior thigh wound photographed and redressed at this time. Pt rolled to right side and pillows placed behind and between legs for repositioning.
[2024-11-01] MEDS: PIPERACILLIN/TAZO 4.5 GM in SODIUM CHLORIDE 0.9% 100 ML IV (03:00)
[2024-11-01] MEDS: VANCOMYCIN 2,000 MG in SODIUM CHLORIDE 0.9% 500 ML 250 MG IV (03:29)
--- NOTE | 2024-11-01 04:14 | PC.NURSE ---
No change in patient condition or status. Pt resting quietly with eyes closed, resps even and not labored. No distress noted at this time. Pt remains connected to cardiac, resp, blood pressure, pulse ox, and core temp monitors with alarms on and audible. Call light within reach. Daughter remains at bedside.
--- NOTE | 2024-11-01 05:07 | PC.NURSE ---
Labs drawn from existing IV right hand
[2024-11-01 05:25] LABS: Hematocrit 28.5 % (36-46); Hemoglobin 8.6 g/dL (12.0-16.0); Mean Corpuscular HGB Conc 30.2 % (30-36); Mean Corpuscular Hemoglobin 24.4 PG (26-34); Mean Corpuscular Volume 80.7 fL (80-100); Platelet Count 294 X10^3/uL (150-400); Red Blood Cell Count 3.53 X10^6/uL (4.0-5.2); Red Cell Distribution Width 20.4 % (11.6-14.8)
[2024-11-01 05:30] LABS: BUN Creatinine Ratio 50.9 (6-22); Blood Urea Nitrogen 28 mg/dL (7-17); Carbon Dioxide 23 mmol/L (22-32); Chloride 102 mmol/L (98-107); Estimated Glomerular Filt Rate > 60 mL/min (>60); Glucose 68 mg/dL (80-110); HEMOLYSIS 35 (0-50); Sodium 130 mmol/L (137-145)
[2024-11-01] MEDS: CLINDAMYCIN 900 MG/50 ML PIGGYBACK 50 MG IV (05:35)
[2024-11-01 05:36] LABS: Add Manual Diff / Slide Review YES
[2024-11-01 05:57] LABS: Anisocytosis 1+; Hypochromasia 1+; Neutrophils Absolute Manual 16910 /uL (3000-5900); Polychromasia 1+; Total Cells Counted 100
[2024-11-01 05:58] LABS: C-Reactive Protein Quant 43.7 mg/dL (<1.0)
--- NOTE | 2024-11-01 06:00 | PC.NURSE ---
Attempted to reposition patient from right to left side, pt refused. Left leg bent and pillow repositioned under knee.
[2024-11-01] MEDS: ACETAMINOPHEN IV 1,000 MG/100 ML VIAL 400 MG IV (06:35)
[2024-11-01 06:45] LABS: Erythrocyte Sedimentation Rate 56 MM/HR (0-20)
[2024-11-01] MEDS: SODIUM CHLORIDE 0.9% 1,000 ML 150 ML IV (07:03)
--- NOTE | 2024-11-01 07:22 | PC.NURSE ---
Assumed care of patient, currently with hypotension, map of 62, and provider aware. Plan to monitor pressures over next hour for improvement, if hypotension continues with map less than 65 will possibly initiate central line and pressors for support. Patient appears to be resting comfortably in bed in view of nursing station.
[2024-11-01] MEDS: LACTATED RINGERS 1,000 ML 1000 ML IV (08:09)
[2024-11-01] MEDS: FLECAINIDE 100 MG TABLET 50 MG PO (08:16)
--- NOTE | 2024-11-01 08:49 | PC.NURSE ---
Called Regina Licea to update pt now getting central line. TRISTON says Tim managing case and will update the accepting provider.
--- NOTE | 2024-11-01 08:55 | DI.RAD.S_ITS ---
PROCEDURE: XR CHEST 1V INDICATIONS: central line placement TECHNIQUE: One view of the chest was acquired. COMPARISON: [facility], CR, XR CHEST 1V, 10/31/2024, 19:43. [facility], CR, XR CHEST 1V, 09/30/2024, 13:18. FINDINGS: Surgical changes and devices: Pulse generator with dual-chamber electrode leads. A right central line is seen, with tip projecting over lower SVC. Lungs and pleura: Very low lung volumes. Prominence of the interstitium, [id number]. No drainable effusions. Mediastinum: Cardiomegaly. Bones and chest wall: There are degenerative changes. IMPRESSION: A right central line has tip projecting over the lower SVC. Interstitial prominence probably edema versus atypical infection. Cardiomegaly. Very low lung volumes on limited single view radiograph. Dictated by: Hong Forrest M.D. on 11/01/2024 at 8:38 Approved by: Hong Forrest M.D. on 11/01/2024 at 8:39
[2024-11-01] MEDS: NOREPINEPHRINE BITARTRATE/D5W 4 MG/250 ML PLAST..BAG 42.524 MG IV (09:09)
--- NOTE | 2024-11-01 09:15 | PC.NURSE ---
Patient's pressures continued to decline, decision made to place central line and start levophed. Central line placed without difficulty, confirmed for use by Dr Lamb, initiated medications per MAR. Patient's pressure had increased during prep and procedure do to positioning and increase in pain. Patient tolerating initial dose of levophed.
[2024-11-01 09:30] LABS: Acinetobacter calcoa-baumannii Not Detected (Not Detect); Bacteroides fragilis Not Detected (Not Detect); Candida albicans Not Detected (Not Detect); Candida auris Not Detected (Not Detect); Candida glabrata Not Detected (Not Detect); Candida krusei Not Detected (Not Detect); Candida parapsilosis Not Detected (Not Detect); Candida tropicalis Not Detected (Not Detect); Cryptococcus neoformans/gatti Not Detected (Not Detect); Enterobacter cloacae complex Not Detected (Not Detect); Enterobacterales Not Detected (Not Detect); Enterococcus faecalis Detected (Not Detect); Enterococcus faecium Not Detected (Not Detect); Haemophilus influenzae Not Detected (Not Detect); Klebsiella aerogenes Not Detected (Not Detect); Listeria monocytogenes Not Detected (Not Detect); Neisseria meningitidis Not Detected (Not Detect); Proteus species Not Detected (Not Detect); Pseudomonas aeruginosa Not Detected (Not Detect); Salmonella species Not Detected (Not Detect); Serratia marcescens Not Detected (Not Detect); Staphylococcus epidermidis Not Detected (Not Detect); Staphylococcus lugdunensis Not Detected (Not Detect); Staphylococcus species Not Detected (Not Detect); Stenotrophomonas maltophilia Not Detected (Not Detect); Streptococcus agalactiae (Gr B Not Detected (Not Detect); Streptococcus pneumonia Not Detected (Not Detect); Streptococcus pyogenes (Gr A) Not Detected (Not Detect); Streptococcus species Not Detected (Not Detect); Vancomycin-rest genes A/B Not Detected (Not Detect)
[2024-11-01] MEDS: PIPERACILLIN/TAZO 3.375 GM in SODIUM CHLORIDE 0.9% 100 ML IV (09:30)
--- NOTE | 2024-11-01 11:50 | PC.NURSE ---
Addendum entered by Linda Jeff R.N. 11/01/24 13:20: Report given to TRISTON RN Original Note: Attempted to call report, line continued to ring with no answer.
== END 2024-11-01 12:00 | disposition short-term general hospital (02) ==
PROVIDERS: Emergency Medicine; Emergency Provider Emergency Medicine; PCP Registered Nurse Diabetes Educator
DX: N39.0 Urinary tract infection, site not specified (principal); E66.01 Morbid (severe) obesity due to excess calories; I10 Essential (primary) hypertension; L89.159 Pressure ulcer of sacral region, unspecified stage; Z68.41 Body mass index [BMI] 40.0-44.9, adult
CPT/HCPCS: 0241U; 36415; 36556; 71045; 74177; 80048; 80053; 81001; 83605; 83690; 84145; 85007; 85025; 85610; 85651; 85730; 86140; 87040; 87070; 87075; 87077; 87086; 87147; 87154; 87186; 87205; 93005; 96361; 96365; 96366; 96367; 96368; 96375; 99285; 99291; J0134; J0696; J2543; Q9967